=== PATIENT | female | born 1995 | race American Indian/Alaskan Native ===

== ENCOUNTER 2017-02-09 19:18 | Emergency (ER) | payer SELFPAY ==
--- NOTE | 2017-02-09 20:15 | EDM.PDOC ---
ED HPI GENERAL MEDICAL PROBLEM - General Chief Complaint: Abdominal Pain Stated Complaint: PAIN IN LOWER BACK/STOMACH Time Seen by Provider: 02/09/17 20:10 Source of Information: Reports: Patient History Limitations: Reports: No Limitations - History of Present Illness INITIAL COMMENTS - FREE TEXT/NARRATIVE: c/o bilateral flank and supropubic pain for past 3 days similar to kidney infection in past. No fever or chills. Lamp last week. Denies risk of STD. No urinary frequency or burning Treatments TRANSPORT MEDIC: Reports: Acetaminophen Bilateral Flank Pain Score (Numeric/FACES): 7 - Related Data Allergies Allergy/AdvReac Type Severity Reaction Status Date / Time No Known Allergies Allergy Verified 02/09/17 19:39 Home Meds: Home Meds . [No Known Home Meds] 04/11/16 [History] Past Medical History - Past Health History Medical/Surgical History: Denies Medical/Surgical History Musculoskeletal History: Reports: Fracture - Past Surgical History Other Musculoskeletal Surgeries/Procedures:: broke left arm 10 years ago Social & Family History - Tobacco Use Smoking Status *Q: Never Smoker Used Tobacco, but Quit: No Second Hand Smoke Exposure: Yes - Caffeine Use Caffeine Use: Reports: Soda - Alcohol Use Days Per Week of Alcohol Use: 0 - Recreational Drug Use Recreational Drug Use: No ED ROS GENERAL - Review of Systems Review Of Systems: ROS reveals no pertinent complaints other than HPI. ED EXAM, RENAL/ - Physical Exam Exam: See Below Exam Limited By: No Limitations General Appearance: Alert, No Apparent Distress Ears: Normal External Exam Nose: Normal Inspection Throat/Mouth: Normal Inspection Head: Atraumatic, Normocephalic Neck: Normal Inspection Respiratory/Chest: No Respiratory Distress, Lungs Clear Cardiovascular: Normal Peripheral Pulses, Regular Rate, Rhythm GI/Abdominal: Normal Bowel Sounds, Soft. No: Guarding, Rebound (Female) Exam: Other (suproapubic tenderness) Extremities: Normal Inspection Neurological: Alert, Oriented Psychiatric: Normal Affect Skin Exam: Warm, Dry, Intact, Tattoo(s) Course - Vital Signs Last Recorded V/S: Last Vital Signs Temp 97.7 F 02/09/17 20:43 Pulse 85 02/09/17 20:43 Resp 16 02/09/17 20:43 BP 122/70 02/09/17 20:43 Pulse Ox 100 02/09/17 20:43 - Orders/Labs/Meds Orders: Active Orders 24 hr Category Date Time Status CULTURE URINE [RM] Stat Lab 02/09/17 19:23 Received Labs: Laboratory Tests 02/09/17 02/09/17 02/09/17 Range/Units 19:23 19:23 19:23 Urine Color Yellow (YELLOW) Urine Appearance Turbid (CLEAR) Urine pH 5.5 (5.0-9.0) Ur Specific [place] 1.025 (1.005-1.030) Urine Protein Negative (NEGATIVE) Urine Glucose (UA) Negative (NEGATIVE) Urine Ketones Trace H (NEGATIVE) Urine Occult Blood Negative (NEGATIVE) Urine Nitrite Negative (NEGATIVE) Urine Bilirubin Negative (NEGATIVE) Urine Urobilinogen 0.2 (0.2-1.0) mg/dL Ur Leukocyte Esterase Trace H (NEGATIVE) Urine RBC 0-5 /HPF Urine WBC 0-5 (0-5/HPF) /HPF Ur Epithelial Cells Many H /HPF Urine Bacteria Many H (0-FEW/HPF) /HPF Urinalysis Comment Urine HCG, Qual Positive Urine Opiates Screen Negative (NEGATIVE) Ur Oxycodone Screen Negative (NEGATIVE) Urine Methadone Screen Negative (NEGATIVE) Ur Barbiturates Screen Negative (NEGATIVE) U Tricyclic Antidepress Negative (NEGATIVE) Ur Phencyclidine Scrn Negative (NEGATIVE) Ur Amphetamine Screen Negative (NEGATIVE) U Methamphetamines Scrn Negative (NEGATIVE) Urine MDMA Screen Negative (NEGATIVE) U Benzodiazepines Scrn Negative (NEGATIVE) Urine Cocaine Screen Negative (NEGATIVE) U Marijuana (THC) Screen Positive H (NEGATIVE) Meds: Medications Discontinued Medications Generic Name Dose Route Start Last Admin Trade Name Freq PRN Reason Stop Dose Admin Cephalexin 500 mg 02/09/17 20:30 02/09/17 20:38 Keflex PO 02/09/17 20:31 500 mg ONETIME ONE Administration Departure - Departure Time of Disposition: 20:30 Disposition: Home, Self-Care 01 Condition: Good Clinical Impression: Qualifiers: Weeks of gestation: unspecified Qualified Code(s): Z34.90 - Encounter for supervision of normal , unspecified, unspecified trimester UTI (urinary tract infection) Qualifiers: Urinary tract infection type: site unspecified Hematuria presence: without hematuria Qualified Code(s): N39.0 - Urinary tract infection, site not specified - Discharge Information Instructions: Urinary Tract Infection, Adult Forms: ED Department Discharge Additional Instructions: keflex 500mg one twice daily for one week follow up in clinic with PCP to establish prenatle care Recheck urine in one week Sooner if fever, chills or worsening of back pain - My Orders Last 24 Hours: My Active Orders 02/09/17 19:23 CULTURE URINE [] Stat - Assessment/Plan Last 24 Hours: My Active Orders 02/09/17 19:23 CULTURE URINE [RM] Stat
[2017-02-09] MEDS ORDERED: Cephalexin 500 MG Cap PO ONE (20:30)
[2017-02-09 20:47] VITALS: BP 122/70
== END 2017-02-09 20:43 | disposition home or self-care (01) ==
LOC: DL.ED 19:18
DX: O23.41 Unspecified infection of urinary tract in pregnancy, first trimester (principal); N39.0 Urinary tract infection, site not specified
CPT/HCPCS: 80305; 81001; 81025; 87086; 99284; A9270

== ENCOUNTER 2017-06-17 10:37 | Emergency (ER) | payer SELFPAY ==
[2017-06-17 10:56] VITALS: BP 126/72
--- NOTE | 2017-06-17 11:10 | EDM.PDOC ---
ED HPI GENERAL MEDICAL PROBLEM - General Chief Complaint: Skin Complaint Stated Complaint: TROUBLE BREATHING, BREAKING OUT Time Seen by Provider: 06/17/17 11:10 Source of Information: Reports: Patient, RN, RN Notes Reviewed History Limitations: Reports: No Limitations - History of Present Illness INITIAL COMMENTS - FREE TEXT/NARRATIVE: Pt presents to the ER with c/o rash on her face and neck. She states she woke up at 0900 with a red rash and burning feeling in her face. She states she has not used any new lotions, make up, products, laundry detergent or foods. She denies use of any medications, prescribed or OTC that may be new. She states when she first awoke she felt that her tongue was somewhat swollen, but after drinking some water she does not feel she has any swelling. She denies having a hard time breathing at this time. Onset: Today, Sudden Location: Reports: Head, Face Face Pain Score (Numeric/FACES): 7 - Related Data Allergies Allergy/AdvReac Type Severity Reaction Status Date / Time No Known Allergies Allergy Verified 02/09/17 19:39 Home Meds: Home Meds . [No Known Home Meds] 04/11/16 [History] Past Medical History - Past Health History Medical/Surgical History: Denies Medical/Surgical History Musculoskeletal History: Reports: Fracture - Past Surgical History Other Musculoskeletal Surgeries/Procedures:: broke left arm 10 years ago Social & Family History - Tobacco Use Smoking Status *Q: Never Smoker Used Tobacco, but Quit: No Second Hand Smoke Exposure: Yes - Caffeine Use Caffeine Use: Reports: Coffee, Soda - Alcohol Use Days Per Week of Alcohol Use: 1 Number of Drinks Per Day: 4 Total Drinks Per Week: 4 - Recreational Drug Use Recreational Drug Use: No ED ROS GENERAL - Review of Systems Review Of Systems: ROS reveals no pertinent complaints other than HPI. ED EXAM, SKIN/RASH Exam: See Below Exam Limited By: No Limitations General Appearance: Alert, WD/WN, No Apparent Distress Eye Exam: Bilateral Eye: EOMI, Normal Inspection Ears: Normal External Exam, Hearing Grossly Normal Nose: Normal Inspection Throat/Mouth: Normal Inspection, Normal Voice, No Airway Compromise Head: Atraumatic, Normocephalic, Facial Tenderness (red raised rash, facial burning and tender to touch, itchy) Neck: Normal Inspection, Supple, Non-Tender, Full Range of Motion Respiratory/Chest: No Respiratory Distress, Lungs Clear, Normal Breath Sounds, No Accessory Muscle Use, Chest Non-Tender Cardiovascular: Normal Peripheral Pulses, Regular Rate, Rhythm, No Edema, No Gallop, No JVD, No Murmur, No Rub Peripheral Pulses: 2+: Radial (L), Radial (R) GI/Abdominal: Normal Bowel Sounds, Soft, Non-Tender, No Organomegaly, No Distention, No Abnormal Bruit, No Mass (Female) Exam: Deferred Rectal (Female) Exam: Deferred Back Exam: Normal Inspection, Full Range of Motion Extremities: Normal Inspection, Normal Range of Motion, Non-Tender, No Pedal Edema, Normal Capillary Refill Neurological: Alert, Oriented, CN II-XII Intact, Normal Cognition, Normal Gait, Normal Reflexes, No Motor/Sensory Deficits Psychiatric: Normal Affect, Normal Mood Skin: Warm, Dry, Rash (red patchy raised on face and neck) Location, Skin: Face, Neck Characteristics: Macular Associated features: Warmth Lymphatic: No Adenopathy Course - Vital Signs Last Recorded V/S: Last Vital Signs Temp 97.8 F 06/17/17 10:55 Pulse 88 06/17/17 10:55 Resp 16 06/17/17 10:55 BP 126/72 06/17/17 10:55 Pulse Ox 100 06/17/17 10:55 - Orders/Labs/Meds Meds: Medications Discontinued Medications Generic Name Dose Route Start Last Admin Trade Name Freq PRN Reason Stop Dose Admin Diphenhydramine HCl 25 mg 06/17/17 11:17 06/17/17 11:32 Benadryl PO 06/17/17 11:18 25 mg ONETIME ONE Administration Famotidine 20 mg 06/17/17 11:18 06/17/17 11:33 Pepcid PO 06/17/17 11:19 20 mg ONETIME ONE Administration Methylprednisolone Sodium Succinate 125 mg 06/17/17 11:17 06/17/17 11:33 Solu-Medrol IM 06/17/17 11:18 125 mg ONETIME ONE Administration Departure - Departure Time of Disposition: 11:40 Disposition: Home, Self-Care 01 Condition: Fair Clinical Impression: Atopic dermatitis Qualifiers: Atopic dermatitis type: unspecified Qualified Code(s): L20.9 - Atopic dermatitis, unspecified - Discharge Information Instructions: Rash, Contact Dermatitis, [id number] Forms: ED Department Discharge Additional Instructions: RX: Medrol Dose pack Over the counter Benadryl as directed on package. Over the counter Calamine lotion or Benadryl cooling gel for itch Follow up with your primary care facility next week.
[2017-06-17] MEDS ORDERED: diphenhydrAMINE 25 MG Tab PO ONE (11:17)
[2017-06-17] MEDS ORDERED: methylPREDNISolone Sodium Succinate 125 MG/2 ML SDV IM ONE (11:17)
[2017-06-17] MEDS ORDERED: Famotidine 20 MG Tab PO ONE (11:18)
== END 2017-06-17 11:40 | disposition home or self-care (01) ==
LOC: DL.ED 10:37
DX: L20.9 Atopic dermatitis, unspecified (principal); Z77.22 Contact with and (suspected) exposure to environmental tobacco smoke (acute) (chronic)
CPT/HCPCS: 96372; 99282; A9270; J2930; 99283

== ENCOUNTER 2017-07-11 01:07 | Emergency (ER) | payer OTHER ==
[2017-07-11 01:14] VITALS: BP 138/84
--- NOTE | 2017-07-11 01:28 | EDM.PDOCBH ---
ED HPI GENERAL MEDICAL PROBLEM - General Chief Complaint: Behavioral/Psych Stated Complaint: WONT SAY WHAT FOR? [id number] Time Seen by Provider: 07/11/17 01:23 Source of Information: Reports: Patient History Limitations: Reports: No Limitations - History of Present Illness INITIAL COMMENTS - FREE TEXT/NARRATIVE: brought in by mother for self inflicted wounds to left forearm. pt undecided as to wanting help with her problems but finally did concede but refused labs. - Related Data Allergies Allergy/AdvReac Type Severity Reaction Status Date / Time No Known Allergies Allergy Verified 07/11/17 01:14 Home Meds: Home Meds . [No Known Home Meds] 04/11/16 [History] Past Medical History - Past Health History Medical/Surgical History: Denies Medical/Surgical History Musculoskeletal History: Reports: Fracture Psychiatric History: Reports: Other (See Below) Other Psychiatric History: self cutting - Past Surgical History Other Musculoskeletal Surgeries/Procedures:: broke left arm 10 years ago Social & Family History - Tobacco Use Smoking Status *Q: Never Smoker Used Tobacco, but Quit: No Second Hand Smoke Exposure: No - Caffeine Use Caffeine Use: Reports: Coffee, Soda - Alcohol Use Days Per Week of Alcohol Use: 1 Number of Drinks Per Day: 4 Total Drinks Per Week: 4 - Recreational Drug Use Recreational Drug Use: No ED ROS GENERAL - Review of Systems Review Of Systems: ROS reveals no pertinent complaints other than HPI. ED EXAM, BEHAVIORAL HEALTH - Physical Exam Exam: See Below Exam Limited By: No Limitations General Appearance: Alert, WD/WN, Other (emotionally distraught but in no acute physical distress) Eye Exam: Bilateral Eye: PERRL (pupils ess ER @ 4mm) Ears: Hearing Grossly Normal Throat/Mouth: Normal Voice, No Airway Compromise Head: Atraumatic Neck: Non-Tender, Full Range of Motion Respiratory/Chest: No Respiratory Distress Cardiovascular: Regular Rate, Rhythm GI/Abdominal: Soft, Non-Tender Extremities: Other (left fore arm with multiple spfl lac totalling 12", NV wnl, no active bleeding) Neurological: Alert, Normal Cognition, No Motor/Sensory Deficits, Oriented x 3 Psychiatric: Alert, Depressed Mood Skin Exam: Warm, Dry, Normal color COURSE, BEHAVIORAL HEALTH COMP - Course Vital Signs: Last Vital Signs Temp 36.9 C 07/11/17 01:09 Pulse 83 07/11/17 01:09 Resp 17 07/11/17 01:09 BP 138/84 07/11/17 01:09 Pulse Ox 99 07/11/17 01:09 Orders, Labs, Meds: Laboratory Tests 07/11/17 07/11/17 07/11/17 Range/Units 01:45 01:45 01:45 WBC (5.0-10.0) 10^3/uL RBC (4.2-5.4) 10^6/uL Hgb (12.0-16.0) g/dL Hct (37.0-47.0) % MCV (80-100) fL MCH (27.0-34.0) pg MCHC (33.0-35.0) g/dL Plt Count (150-450) 10^3/uL Neut % (Auto) (42.2-75.2) % Lymph % (Auto) (20.5-50.1) % [place] % (Auto) (2-8) % Eos % (Auto) (1.0-3.0) % Baso % (Auto) (0.0-1.0) % Sodium (135-145) mmol/L Potassium (3.6-5.0) mmol/L Chloride (101-111) mmol/L Carbon Dioxide (21.0-31.0) mmol/L Anion Gap BUN (7-18) mg/dL Creatinine (0.6-1.3) mg/dL Est Cr Clr Drug Dosing mL/min Estimated GFR (MDRD) BUN/Creatinine Ratio Glucose (74-105) mg/dL Calcium (8.4-10.2) mg/dl Total Bilirubin (0.2-1.0) mg/dL AST (10-42) IU/L ALT (10-60) IU/L Alkaline Phosphatase (42-121) IU/L Total Protein (6.7-8.2) g/dl Albumin (3.2-5.5) g/dl Globulin Albumin/Globulin Ratio Urine Color Yellow (YELLOW) Urine Appearance Slightly cloudy (CLEAR) Urine pH 6.5 (5.0-9.0) Ur Specific [place] 1.025 (1.005-1.030) Urine Protein Negative (NEGATIVE) Urine Glucose (UA) Negative (NEGATIVE) Urine Ketones Trace H (NEGATIVE) Urine Occult Blood Negative (NEGATIVE) Urine Nitrite Negative (NEGATIVE) Urine Bilirubin Negative (NEGATIVE) Urine Urobilinogen 0.2 (0.2-1.0) mg/dL Ur Leukocyte Esterase Trace H (NEGATIVE) Urine HCG, Qual Negative Salicylates Urine Opiates Screen Negative (NEGATIVE) Ur Oxycodone Screen Negative (NEGATIVE) Urine Methadone Screen Negative (NEGATIVE) Acetaminophen Ur Barbiturates Screen Negative (NEGATIVE) U Tricyclic Antidepress Negative (NEGATIVE) Ur Phencyclidine Scrn Negative (NEGATIVE) Ur Amphetamine Screen Negative (NEGATIVE) U Methamphetamines Scrn Negative (NEGATIVE) Urine MDMA Screen Negative (NEGATIVE) U Benzodiazepines Scrn Negative (NEGATIVE) Urine Cocaine Screen Negative (NEGATIVE) U Marijuana (THC) Screen Negative (NEGATIVE) Ethyl Alcohol mg/dL 18 07/11/17 Range/Units 01:50 01:50 WBC 10.8 H (5.0-10.0) 10^3/uL RBC 4.12 L (4.2-5.4) 10^6/uL Hgb 12.7 D (12.0-16.0) g/dL Hct 37.4 (37.0-47.0) % MCV 90.8 D (80-100) fL MCH 30.8 (27.0-34.0) pg MCHC 34.0 (33.0-35.0) g/dL Plt Count 278 D (150-450) 10^3/uL Neut % (Auto) 62.6 (42.2-75.2) % Lymph % (Auto) 29.2 (20.5-50.1) % [place] % (Auto) 6.8 (2-8) % Eos % (Auto) 1.1 (1.0-3.0) % Baso % (Auto) 0.3 (0.0-1.0) % Sodium 140 (135-145) mmol/L Potassium 3.4 L (3.6-5.0) mmol/L Chloride 105 (101-111) mmol/L Carbon Dioxide 25.0 (21.0-31.0) mmol/L Anion Gap 13.4 BUN 13 (7-18) mg/dL Creatinine 0.8 (0.6-1.3) mg/dL Est Cr Clr Drug Dosing 94.44 mL/min Estimated GFR (MDRD) > 60 BUN/Creatinine Ratio 16.25 Glucose 105 (74-105) mg/dL Calcium 9.6 (8.4-10.2) mg/dl Total Bilirubin 0.8 (0.2-1.0) mg/dL AST 22 (10-42) IU/L ALT 18 (10-60) IU/L Alkaline Phosphatase 72 (42-121) IU/L Total Protein 8.0 (6.7-8.2) g/dl Albumin 4.7 (3.2-5.5) g/dl Globulin 3.3 Albumin/Globulin Ratio 1.42 Urine Color (YELLOW) Urine Appearance (CLEAR) Urine pH (5.0-9.0) Ur Specific [place] (1.005-1.030) Urine Protein (NEGATIVE) Urine Glucose (UA) (NEGATIVE) Urine Ketones (NEGATIVE) Urine Occult Blood (NEGATIVE) Urine Nitrite (NEGATIVE) Urine Bilirubin (NEGATIVE) Urine Urobilinogen (0.2-1.0) mg/dL Ur Leukocyte Esterase (NEGATIVE) Urine HCG, Qual Salicylates < 4.0 Urine Opiates Screen (NEGATIVE) Ur Oxycodone Screen (NEGATIVE) Urine Methadone Screen (NEGATIVE) Acetaminophen < 10.0 Ur Barbiturates Screen (NEGATIVE) U Tricyclic Antidepress (NEGATIVE) Ur Phencyclidine Scrn (NEGATIVE) Ur Amphetamine Screen (NEGATIVE) U Methamphetamines Scrn (NEGATIVE) Urine MDMA Screen (NEGATIVE) U Benzodiazepines Scrn (NEGATIVE) Urine Cocaine Screen (NEGATIVE) U Marijuana (THC) Screen (NEGATIVE) Ethyl Alcohol < 5 mg/dL Re-Assessment/Re-Exam: pt & family conversed and finally pt decided to have labs done. Mental health [facility] called talked with pt who doesn't want to wait then talked to mother who states pt will be safe tonight and will bring pt to Human Services tomorrow for further evaluation. Departure - Departure Time of Disposition: 02:54 Disposition: Home, Self-Care 01 Condition: Good Clinical Impression: Self-harm - Discharge Information Forms: ED Department Discharge Additional Instructions: 1) see Human Services in the morning for further evaluation 2) recheck if there is any change or concern
[2017-07-11 02:18] LABS: ANION GAP 13.4; CHLORIDE,CL 105 mmol/L (101-111); SODIUM,NA 140 mmol/L (135-145)
[2017-07-11 02:29] LABS: ACETAMINOPHEN < 10.0
== END 2017-07-11 02:59 | disposition home or self-care (01) ==
LOC: DL.ED 01:07
DX: S51.812A Laceration without foreign body of left forearm, initial encounter (principal); X78.9XXA Intentional self-harm by unspecified sharp object, initial encounter
CPT/HCPCS: 36415; 80053; 80305; 81003; 81025; 85025; 99284; G0480

== ENCOUNTER 2018-06-27 07:59 | Emergency (ER) | payer MEDICAID, OTHER ==
[2018-06-27] MEDS ORDERED: Ondansetron 4 MG/2 ML SDV IV ONE ×2 (08:13→09:12)
[2018-06-27] MEDS ORDERED: Sodium Chloride 0.9% 1,000 ML IV ONE ×2 (08:13→09:12)
[2018-06-27] MEDS ORDERED: Sodium Chloride 0.9% 10 ML Syringe FLUSH PRN (08:13)
--- NOTE | 2018-06-27 08:13 | EDM.PDOC ---
ED HPI GENERAL MEDICAL PROBLEM - General Chief Complaint: Gastrointestinal Problem Stated Complaint: THROWING UP Time Seen by Provider: 06/27/18 08:12 Source of Information: Reports: Patient, Old Records, RN, RN Notes Reviewed History Limitations: Reports: No Limitations - History of Present Illness INITIAL COMMENTS - FREE TEXT/NARRATIVE: Pt presents from home by POV with c/o RLQ abdominal pain with severe nausea and vomiting. Pt states the symptoms began yesterday, but the pain is much more severe this morning. She admits to fever, for which she took Tylenol this morning. Also admits to some diarrhea since yesterday as well. Last ate at 0200HRS, but vomited most of it up. 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), Musculoskeletal History: Reports: Fracture Psychiatric History: Reports: Other (See Below) Other Psychiatric History: self cutting - Past Surgical History Female Surgical History: Reports: Other (See Below) (right salpingoectomy for ectopic, 05/2018) Other Musculoskeletal Surgeries/Procedures:: broke left arm 10 years ago Social & Family History - Family History Family Medical History: Noncontributory - Caffeine Use Caffeine Use: Reports: Coffee, Soda - Living Situation & Occupation Living situation: Reports: with Family ED ROS GENERAL - Review of Systems Review Of Systems: ROS reveals no pertinent complaints other than HPI. ED EXAM, GI/ABD - Physical Exam Exam: See Below Exam Limited By: No Limitations General Appearance: Alert, WD/WN, Mild Distress, Active Emesis Eyes: Bilateral: Normal Appearance, EOMI Nose: Normal Inspection Throat/Mouth: Normal Inspection, Normal Lips, Normal Teeth, Normal Gums, Normal Oropharynx, Normal Voice, No Airway Compromise Head: Atraumatic, Normocephalic Neck: Normal Inspection, Supple, Non-Tender, Full Range of Motion Respiratory/Chest: No Respiratory Distress, Lungs Clear, Normal Breath Sounds, No Accessory Muscle Use, Chest Non-Tender Cardiovascular: Regular Rate, Rhythm, Tachycardia GI/Abdominal Exam: Normal Bowel Sounds, Soft, No Distention, No Abnormal Bruit, No Mass, Pelvis Stable, Guarding (at RLQ), Rebound (RLQ), Tender (RLQ). No: Rigid (Female) Exam: Deferred Rectal (Female) Exam: Deferred Back Exam: Full Range of Motion, CVA Tenderness (R). No: CVA Tenderness (L) Extremities: Normal Inspection Neurological: Alert, Oriented, CN II-XII Intact, Normal Cognition, No Motor/ Sensory Deficits Psychiatric: Normal Affect, Normal Mood Skin Exam: Warm, Dry, Intact, Normal Color, No Rash Course - Vital Signs Last Recorded V/S: Last Vital Signs Temp 37.3 C 06/27/18 08:35 Pulse 139 H 06/27/18 08:35 Resp 24 H 06/27/18 08:35 BP 120/76 06/27/18 08:35 Pulse Ox 99 06/27/18 08:35 - Orders/Labs/Meds Orders: Active Orders 24 hr Category Date Time Status Peripheral IV Care [RC] . DIRECTED Care 06/27/18 08:13 Active Abdomen Pelvis wo Cont [CT] Stat Exams 06/27/18 08:45 Taken CULTURE BLOOD [BC] Stat Lab 06/27/18 08:21 Received Sodium Chloride 0.9% [Normal Saline] 1,000 ml Med 06/27/18 09:12 Active IV .BOLUS Sodium Chloride 0.9% [Saline Flush] Med 06/27/18 08:13 Active 10 ml FLUSH ASDIRECTED PRN Peripheral IV Insertion Adult [OM.PC] Stat Oth 06/27/18 08:13 Ordered Medication Orders Sodium Chloride (Normal Saline) 1,000 mls @ 999 mls/hr IV .BOLUS ONE Stop: 06/27/18 10:12 Last Admin: 06/27/18 09:23 Dose: 999 mls/hr Sodium Chloride (Saline Flush) 10 ml FLUSH ASDIRECTED PRN PRN Reason: Keep Vein Open Last Admin: 06/27/18 08:27 Dose: 10 ml Labs: Laboratory Tests 06/27/18 06/27/18 06/27/18 Range/Units 08:15 08:15 08:21 WBC 7.1 (5.0-10.0) 10^3/uL RBC 4.12 L (4.2-5.4) 10^6/uL Hgb 11.8 L D (12.0-16.0) g/dL Hct 33.5 L (37.0-47.0) % MCV 81.3 (80-100) fL MCH 28.6 (27.0-34.0) pg MCHC 35.2 H (33.0-35.0) g/dL Plt Count 164 D (150-450) 10^3/uL Neut % (Auto) 69.3 (42.2-75.2) % Lymph % (Auto) 20.3 L (20.5-50.1) % Blaine % (Auto) 7.4 (2-8) % Eos % (Auto) 3.0 (1.0-3.0) % Baso % (Auto) 0.0 (0.0-1.0) % Sodium (135-145) mmol/L Potassium (3.6-5.0) mmol/L Chloride (101-111) mmol/L Carbon Dioxide (21.0-31.0) mmol/L Anion Gap BUN (7-18) mg/dL Creatinine (0.6-1.3) mg/dL Est Cr Clr Drug Dosing mL/min Estimated GFR (MDRD) BUN/Creatinine Ratio Glucose (74-105) mg/dL Lactic Acid (0.5-2.2) mmol/L Calcium (8.4-10.2) mg/dl Total Bilirubin (0.2-1.0) mg/dL AST (10-42) IU/L ALT (10-60) IU/L Alkaline Phosphatase (42-121) IU/L Total Protein (6.7-8.2) g/dl Albumin (3.2-5.5) g/dl Globulin Albumin/Globulin Ratio Amylase (28-100) U/L Lipase (22-51) U/L Urine Color Yellow (YELLOW) Urine Appearance Slightly cloudy (CLEAR) Urine pH 5.5 (5.0-9.0) Ur Specific Chamberlain >= 1.030 (1.005-1.030) Urine Protein Negative (NEGATIVE) Urine Glucose (UA) Negative (NEGATIVE) Urine Ketones Negative (NEGATIVE) Urine Occult Blood Negative (NEGATIVE) Urine Nitrite Negative (NEGATIVE) Urine Bilirubin Negative (NEGATIVE) Urine Urobilinogen 0.2 (0.2-1.0) mg/dL Ur Leukocyte Esterase Trace H (NEGATIVE) Urine RBC 0-5 /HPF Urine WBC 5-10 H (0-5/HPF) /HPF Ur Epithelial Cells Moderate H /HPF Calcium Oxalate Crystal Many H /HPF Urine Bacteria Few (0-FEW/HPF) /HPF Urine Mucus Rare /LPF Urine HCG, Qual Negative 06/27/18 06/27/18 Range/Units 08:21 08:21 WBC (5.0-10.0) 10^3/uL RBC (4.2-5.4) 10^6/uL Hgb (12.0-16.0) g/dL Hct (37.0-47.0) % MCV (80-100) fL MCH (27.0-34.0) pg MCHC (33.0-35.0) g/dL Plt Count (150-450) 10^3/uL Neut % (Auto) (42.2-75.2) % Lymph % (Auto) (20.5-50.1) % Blaine % (Auto) (2-8) % Eos % (Auto) (1.0-3.0) % Baso % (Auto) (0.0-1.0) % Sodium 134 L (135-145) mmol/L Potassium 3.3 L (3.6-5.0) mmol/L Chloride 103 (101-111) mmol/L Carbon Dioxide 20.0 L (21.0-31.0) mmol/L Anion Gap 14.3 BUN 11 (7-18) mg/dL Creatinine 0.5 L (0.6-1.3) mg/dL Est Cr Clr Drug Dosing 149.82 mL/min Estimated GFR (MDRD) > 60 BUN/Creatinine Ratio 22.00 Glucose 118 H (74-105) mg/dL Lactic Acid 1.1 (0.5-2.2) mmol/L Calcium 9.2 (8.4-10.2) mg/dl Total Bilirubin 0.8 (0.2-1.0) mg/dL AST 32 (10-42) IU/L ALT 25 (10-60) IU/L Alkaline Phosphatase 188 H (42-121) IU/L Total Protein 7.1 (6.7-8.2) g/dl Albumin 3.8 (3.2-5.5) g/dl Globulin 3.3 Albumin/Globulin Ratio 1.15 Amylase 52 (28-100) U/L Lipase 23 (22-51) U/L Urine Color (YELLOW) Urine Appearance (CLEAR) Urine pH (5.0-9.0) Ur Specific Chamberlain (1.005-1.030) Urine Protein (NEGATIVE) Urine Glucose (UA) (NEGATIVE) Urine Ketones (NEGATIVE) Urine Occult Blood (NEGATIVE) Urine Nitrite (NEGATIVE) Urine Bilirubin (NEGATIVE) Urine Urobilinogen (0.2-1.0) mg/dL Ur Leukocyte Esterase (NEGATIVE) Urine RBC /HPF Urine WBC (0-5/HPF) /HPF Ur Epithelial Cells /HPF Calcium Oxalate Crystal /HPF Urine Bacteria (0-FEW/HPF) /HPF Urine Mucus /LPF Urine HCG, Qual Meds: Medications Generic Name Dose Route Start Last Admin Trade Name Frerandall PRN Reason Stop Dose Admin Sodium Chloride 1,000 mls @ 999 mls/hr 06/27/18 09:12 06/27/18 09:23 Normal Saline IV 06/27/18 10:12 999 mls/hr .BOLUS ONE Administration Sodium Chloride 10 ml 06/27/18 08:13 06/27/18 08:27 Saline Flush FLUSH 10 ml ASDIRECTED PRN Administration Keep Vein Open Discontinued Medications Generic Name Dose Route Start Last Admin Trade Name Frerandall PRN Reason Stop Dose Admin Hydromorphone HCl 1 mg 06/27/18 08:16 06/27/18 08:27 Dilaudid IVPUSH 06/27/18 08:17 1 mg ONETIME ONE Administration Sodium Chloride 1,000 mls @ 999 mls/hr 06/27/18 08:13 06/27/18 08:27 Normal Saline IV 06/27/18 09:13 999 mls/hr .BOLUS ONE Administration Iopamidol 75 ml 06/27/18 08:17 Isovue-300 (61%) IVPUSH 06/27/18 08:18 ONETIME ONE Ketorolac Tromethamine 30 mg 06/27/18 09:13 06/27/18 09:19 Toradol IVPUSH 06/27/18 09:14 30 mg ONETIME ONE Administration Ondansetron HCl 4 mg 06/27/18 08:13 06/27/18 08:27 Zofran IV 06/27/18 08:14 4 mg ONETIME ONE Administration Ondansetron HCl 4 mg 06/27/18 09:12 06/27/18 09:20 Zofran IV 06/27/18 09:13 4 mg ONETIME ONE Administration - Radiology Interpretation Free Text/Narrative:: CT Abdomen/Pelvis: normal appendix, Rt ovarian cyst, non-obstructive B/L renal micro-calcifications, no acute findings per Rad. report. Departure - Departure Time of Disposition: 10:00 Disposition: Home, Self-Care 01 Condition: Fair Clinical Impression: Gastroenteritis presumed infectious, Dehydration, Right ovarian cyst - Discharge Information *PRESCRIPTION DRUG MONITORING PROGRAM REVIEWED*: Not Applicable *COPY OF PRESCRIPTION DRUG MONITORING REPORT IN PATIENT GLENIS: Not Applicable Instructions: Viral Gastroenteritis, Adult, [id number], Dehydration, Adult, Ovarian Cyst Forms: ED Department Discharge Additional Instructions: Rx: Promethazine 25mg *Do not drive while under the influence of this medication. Rx: Dicyclomine 20mg Clear liquid diet until nausea and vomiting resolve, then advance to soft bland diet as tolerated. Avoid dairy products, fried or greasy foods, and spicy foods until completely improved. Follow up in clinic in 3 days. Return to ER if pain becomes severe, you are unable to tolerated clear liquids without vomiting, or if any other emergent symptoms develop. - My Orders Last 24 Hours: My Active Orders 06/27/18 08:13 Peripheral IV Care [RC] . DIRECTED Sodium Chloride 0.9% [Saline Flush] 10 ml FLUSH ASDIRECTED PRN Peripheral IV Insertion Adult [OM.PC] Stat 06/27/18 08:21 CULTURE BLOOD [BC] Stat 06/27/18 08:45 Abdomen Pelvis wo Cont [CT] Stat 06/27/18 09:12 Sodium Chloride 0.9% [Normal Saline] 1,000 ml IV .BOLUS - Assessment/Plan Last 24 Hours: My Active Orders 06/27/18 08:13 Peripheral IV Care [RC] . DIRECTED Sodium Chloride 0.9% [Saline Flush] 10 ml FLUSH ASDIRECTED PRN Peripheral IV Insertion Adult [OM.PC] Stat 06/27/18 08:21 CULTURE BLOOD [BC] Stat 06/27/18 08:45 Abdomen Pelvis wo Cont [CT] Stat 06/27/18 09:12 Sodium Chloride 0.9% [Normal Saline] 1,000 ml IV .BOLUS
[2018-06-27] MEDS ORDERED: HYDROmorphone 1 MG/ML Syringe IVPUSH ONE (08:16)
[2018-06-27] MEDS ORDERED: Iopamidol 612 MG/ML 75 ML Bottle IVPUSH ONE (08:17)
[2018-06-27 08:46] VITALS: BP 120/76
[2018-06-27 08:53] LABS: ANION GAP 14.3; CHLORIDE,CL 103 mmol/L (101-111); SODIUM,NA 134 mmol/L (135-145)
[2018-06-27] MEDS ORDERED: Ketorolac 30 MG/ML SDV IVPUSH ONE (09:13)
--- NOTE | 2018-06-27 09:57 | CT ---
CLINICAL HISTORY: 23-year-old female with right flank and right lower quadrant pain who has a history of kidney stones (NOTE: Nonobstructing lower pole calcification left kidney" reported on CT scan January 2018). Surgery for ectopic on the right. No hematuria but urine is "loaded" with calcium oxalate crystals. SCAN TECHNIQUE: Volume acquisition of data from an emergency unenhanced CT scan of the abdomen and pelvis (kidneys/ureters/bladder) obtained while the patient was lying supine on the Siemens multislice scanner [place], [place]. All data archived in the PACS system for storage, reformatting axial/sagittal/coronal planes and study. INTERPRETATION: 1. Discrete lower pole calcification left kidney and increased calyceal density both kidneys (dehydration?) Without current sign of ureterolithiasis or obstructive uropathy, i.e., no pyelocaliectasis or ureterectasis. Near empty urinary bladder without calcification. 2. Large retroverted uterus and the tissue planes right adnexa obscured (surgery?). Prominent 2 cm diameter right ovarian cyst. 3. Normal appendix RLQ. 4. Gallbladder, unenhanced liver, stomach spleen and pancreas unremarkable. 5. No abdominal mass lesion, pelvic or retroperitoneal lymphadenopathy, signs of mechanical bowel obstruction, ascites or free intraperitoneal air. 6. Normal cardiac silhouette. Lung bases clear. Normal caliber abdominal aorta. Lumbar spine unremarkable. CONCLUSION: Nephrolithiasis. No signs of obstructive uropathy. Right ovarian cyst.
== END 2018-06-27 10:29 | disposition home or self-care (01) ==
LOC: DL.ED 07:59
DX: K52.9 Noninfective gastroenteritis and colitis, unspecified (principal); N83.201 Unspecified ovarian cyst, right side
CPT/HCPCS: 36415; 74176; 80053; 81001; 81025; 82150; 83605; 83690; 85025; 87040; 96361; 96374; 96375; 96376; 99284; J1170; J1885; J2405; J7030

== ENCOUNTER 2018-08-14 20:17 | Emergency (ER) | payer MEDICAID ==
[2018-08-14 20:24] VITALS: BP 145/70
[2018-08-14 21:19] LABS: ANION GAP 15.8; CHLORIDE,CL 104 mmol/L (101-111); SODIUM,NA 135 mmol/L (135-145)
--- NOTE | 2018-08-15 06:23 | EDM.PDOC ---
ED HPI GENERAL MEDICAL PROBLEM - General Chief Complaint: Abdominal Pain Stated Complaint: SHARP PAIN IN RIGHT SIDE OF ABD. Time Seen by Provider: 08/14/18 20:30 Source of Information: Reports: Patient History Limitations: Reports: No Limitations - History of Present Illness INITIAL COMMENTS - FREE TEXT/NARRATIVE: C/O ROQ abdominal pain radiating to bck past 4 days, No fever or chills. Rare emesis. Ectopic on right in May, Started Depo shot in June. Lmp completed on Tuesday, lasted 12 days. Heavier than usual Denies urinary symptoms. HEENT no complaints. Right Lower Abdominal Pain Score (Numeric/FACES): 5 - Related Data Allergies Allergy/AdvReac Type Severity Reaction Status Date / Time No Known Allergies Allergy Verified 08/14/18 20:24 Home Meds: Home Meds . 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 , Musculoskeletal History: Reports: Fracture Psychiatric History: Reports: Other (See Below) Other Psychiatric History: self cutting - Past Surgical History Female Surgical History: Reports: Other (See Below) Other Female Surgeries/Procedures: ectopic surgery Other Musculoskeletal Surgeries/Procedures:: broke left arm 10 years ago Social & Family History - Family History Family Medical History: Noncontributory - Tobacco Use Smoking Status *Q: Never Smoker Second Hand Smoke Exposure: No - Caffeine Use Caffeine Use: Reports: Coffee, Soda - Recreational Drug Use Recreational Drug Use: No - Living Situation & Occupation Living situation: Reports: with Family ED ROS GENERAL - Review of Systems Review Of Systems: ROS reveals no pertinent complaints other than HPI. ED EXAM, GI/ABD - Physical Exam Exam: See Below Exam Limited By: No Limitations General Appearance: Alert, Mild Distress Eyes: Bilateral: EOMI Ears: Normal External Exam Nose: Normal Inspection Throat/Mouth: Normal Inspection, Normal Oropharynx Head: Atraumatic, Normocephalic Neck: Normal Inspection Respiratory/Chest: No Respiratory Distress, Lungs Clear Cardiovascular: Normal Peripheral Pulses, Regular Rate, Rhythm, Tachycardia GI/Abdominal Exam: Normal Bowel Sounds Back Exam: CVA Tenderness (R) Extremities: Normal Range of Motion Neurological: Alert, Oriented Psychiatric: Normal Affect, Normal Mood Skin Exam: Warm, Dry, Intact, Normal Color Course - Vital Signs Last Recorded V/S: Last Vital Signs Temp 98.7 F 08/14/18 20:20 Pulse 128 H 08/14/18 20:20 Resp 18 08/14/18 20:20 BP 145/70 H 08/14/18 20:20 Pulse Ox 100 08/14/18 20:20 - Orders/Labs/Meds Labs: Laboratory Tests 08/14/18 08/14/18 08/14/18 Range/Units 20:43 20:46 20:46 WBC (5.0-10.0) 10^3/uL RBC (4.2-5.4) 10^6/uL Hgb (12.0-16.0) g/dL Hct (37.0-47.0) % MCV (80-100) fL MCH (27.0-34.0) pg MCHC (33.0-35.0) g/dL Plt Count (150-450) 10^3/uL Neut % (Auto) (42.2-75.2) % Lymph % (Auto) (20.5-50.1) % [place] % (Auto) (2-8) % Eos % (Auto) (1.0-3.0) % Baso % (Auto) (0.0-1.0) % Sodium (135-145) mmol/L Potassium (3.6-5.0) mmol/L Chloride (101-111) mmol/L Carbon Dioxide (21.0-31.0) mmol/L Anion Gap BUN (7-18) mg/dL Creatinine (0.6-1.3) mg/dL Est Cr Clr Drug Dosing mL/min Estimated GFR (MDRD) BUN/Creatinine Ratio Glucose (74-105) mg/dL Calcium (8.4-10.2) mg/dl Total Bilirubin (0.2-1.0) mg/dL AST (10-42) IU/L ALT (10-60) IU/L Alkaline Phosphatase (42-121) IU/L Total Protein (6.7-8.2) g/dl Albumin (3.2-5.5) g/dl Globulin Albumin/Globulin Ratio Urine Color Yellow (YELLOW) Urine Appearance Clear (CLEAR) Urine pH 5.5 (5.0-9.0) Ur Specific Balm 1.015 (1.005-1.030) Urine Protein Negative (NEGATIVE) Urine Glucose (UA) Negative (NEGATIVE) Urine Ketones Negative (NEGATIVE) Urine Occult Blood Negative (NEGATIVE) Urine Nitrite Negative (NEGATIVE) Urine Bilirubin Negative (NEGATIVE) Urine Urobilinogen 0.2 (0.2-1.0) mg/dL Ur Leukocyte Esterase Trace H (NEGATIVE) Urine RBC 0-5 /HPF Urine WBC 0-5 (0-5/HPF) /HPF Ur Epithelial Cells Rare /HPF Amorphous Sediment Rare (0/HPF) /HPF Urine Bacteria Occasional (0-FEW/HPF) /HPF Urine Mucus Rare /LPF Urine HCG, Qual Negative Urine Opiates Screen Negative (NEGATIVE) Ur Oxycodone Screen Negative (NEGATIVE) Urine Methadone Screen Negative (NEGATIVE) Ur Barbiturates Screen Negative (NEGATIVE) U Tricyclic Antidepress Negative (NEGATIVE) Ur Phencyclidine Scrn Negative (NEGATIVE) Ur Amphetamine Screen Negative (NEGATIVE) U Methamphetamines Scrn Negative (NEGATIVE) Urine MDMA Screen Negative (NEGATIVE) U Benzodiazepines Scrn Negative (NEGATIVE) Urine Cocaine Screen Negative (NEGATIVE) U Marijuana (THC) Screen Negative (NEGATIVE) 08/14/18 08/14/18 Range/Units 20:56 20:56 WBC 7.1 (5.0-10.0) 10^3/uL RBC 3.77 L (4.2-5.4) 10^6/uL Hgb 10.7 L (12.0-16.0) g/dL Hct 30.7 L (37.0-47.0) % MCV 81.4 (80-100) fL MCH 28.4 (27.0-34.0) pg MCHC 34.9 (33.0-35.0) g/dL Plt Count 215 (150-450) 10^3/uL Neut % (Auto) 52.6 (42.2-75.2) % Lymph % (Auto) 37.6 (20.5-50.1) % [place] % (Auto) 7.2 (2-8) % Eos % (Auto) 2.5 (1.0-3.0) % Baso % (Auto) 0.1 (0.0-1.0) % Sodium 135 (135-145) mmol/L Potassium 3.8 (3.6-5.0) mmol/L Chloride 104 (101-111) mmol/L Carbon Dioxide 19.0 L (21.0-31.0) mmol/L Anion Gap 15.8 BUN 12 (7-18) mg/dL Creatinine 0.5 L (0.6-1.3) mg/dL Est Cr Clr Drug Dosing 149.82 mL/min Estimated GFR (MDRD) > 60 BUN/Creatinine Ratio 24.00 Glucose 140 H (74-105) mg/dL Calcium 9.0 (8.4-10.2) mg/dl Total Bilirubin 0.7 (0.2-1.0) mg/dL AST 40 (10-42) IU/L ALT 45 (10-60) IU/L Alkaline Phosphatase 235 H (42-121) IU/L Total Protein 6.8 (6.7-8.2) g/dl Albumin 3.4 (3.2-5.5) g/dl Globulin 3.4 Albumin/Globulin Ratio 1.00 Urine Color (YELLOW) Urine Appearance (CLEAR) Urine pH (5.0-9.0) Ur Specific Balm (1.005-1.030) Urine Protein (NEGATIVE) Urine Glucose (UA) (NEGATIVE) Urine Ketones (NEGATIVE) Urine Occult Blood (NEGATIVE) Urine Nitrite (NEGATIVE) Urine Bilirubin (NEGATIVE) Urine Urobilinogen (0.2-1.0) mg/dL Ur Leukocyte Esterase (NEGATIVE) Urine RBC /HPF Urine WBC (0-5/HPF) /HPF Ur Epithelial Cells /HPF Amorphous Sediment (0/HPF) /HPF Urine Bacteria (0-FEW/HPF) /HPF Urine Mucus /LPF Urine HCG, Qual Urine Opiates Screen (NEGATIVE) Ur Oxycodone Screen (NEGATIVE) Urine Methadone Screen (NEGATIVE) Ur Barbiturates Screen (NEGATIVE) U Tricyclic Antidepress (NEGATIVE) Ur Phencyclidine Scrn (NEGATIVE) Ur Amphetamine Screen (NEGATIVE) U Methamphetamines Scrn (NEGATIVE) Urine MDMA Screen (NEGATIVE) U Benzodiazepines Scrn (NEGATIVE) Urine Cocaine Screen (NEGATIVE) U Marijuana (THC) Screen (NEGATIVE) Departure - Departure Time of Disposition: 23:00 Disposition: Against Medical Advice 07 Condition: Undetermined Clinical Impression: Abdominal pain Qualifiers: Abdominal location: right lower quadrant Qualified Code(s): R10.31 - Right lower quadrant pain - Discharge Information Forms: ED Department Discharge
== END 2018-08-14 22:57 | disposition left against medical advice (07) ==
LOC: DL.ED 20:17
DX: R10.31 Right lower quadrant pain (principal)
CPT/HCPCS: 36415; 76857; 80053; 80305-QW; 81001; 81025; 85025; 99284

== ENCOUNTER 2018-08-27 13:59 | Emergency (ER) | payer MEDICAID, OTHER ==
[2018-08-27 14:05] VITALS: BP 132/49
[2018-08-27] MEDS ORDERED: Ketorolac 30 MG/ML SDV IM ONE (14:13)
--- NOTE | 2018-08-27 14:18 | EDM.PDOC ---
ED HPI GENERAL MEDICAL PROBLEM - General Chief Complaint: Back Pain or Injury Stated Complaint: UNKNOWN AMBULANCE Time Seen by Provider: 08/27/18 14:14 Source of Information: Reports: Patient History Limitations: Reports: No Limitations - History of Present Illness INITIAL COMMENTS - FREE TEXT/NARRATIVE: woke up hour ago with pain left back/shoulder area and then moved to right side and now both sides hurt. denies injury/straining. gets depo shots for control. denies URI Sx. hurts more to deep breath. Left Upper Back Pain Score (Numeric/FACES): 10 - Related Data Allergies Allergy/AdvReac Type Severity Reaction Status Date / Time No Known Allergies Allergy Verified 08/27/18 14:05 Home Meds: Home Meds . 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 , Musculoskeletal History: Reports: Fracture Psychiatric History: Reports: Other (See Below) Other Psychiatric History: self cutting - Past Surgical History Female Surgical History: Reports: Other (See Below) Other Female Surgeries/Procedures: ectopic surgery Other Musculoskeletal Surgeries/Procedures:: broke left arm 10 years ago Social & Family History - Family History Family Medical History: Noncontributory - Tobacco Use Smoking Status *Q: Never Smoker Second Hand Smoke Exposure: No - Caffeine Use Caffeine Use: Reports: Coffee, Soda - Recreational Drug Use Recreational Drug Use: No - Living Situation & Occupation Living situation: Reports: with Family ED ROS GENERAL - Review of Systems Review Of Systems: ROS reveals no pertinent complaints other than HPI. ED EXAM, UPPER BACK/NECK PAIN - Physical Exam Exam: See Below Exam Limited By: No Limitations General Appearance: Alert, WD/WN, Anxious, Mild Distress, Other (crying, hypervent) Ears Exam: Hearing Grossly Normal Throat/Mouth Exam: Normal Voice, No Airway Compromise Head Exam: Atraumatic Neck Exam: Non-Tender, Full Range of Motion Nexus Criteria: No: Posterior, Midline Cervical Tenderness, Evidence of Intoxication, Altered Level of Consciousness, Focal Neurological Deficit, Painful Distraction Injuries Cardiovascular/Respiratory: Regular Rate, Rhythm, Normal Breath Sounds, No Respiratory Distress GI/Abdominal: Soft, Non-Tender Neurologic: Alert, Oriented x 3 Psychiatric: Anxious, Tearful Skin Exam: Normal Color, Warm/Dry Lymphatic: No Adenopathy Course - Vital Signs Last Recorded V/S: Last Vital Signs Temp 35.9 C 08/27/18 14:01 Pulse 126 H 08/27/18 14:01 Resp 20 08/27/18 14:01 BP 132/49 L 08/27/18 14:01 Pulse Ox 100 08/27/18 14:01 - Orders/Labs/Meds Labs: Laboratory Tests 08/27/18 08/27/18 08/27/18 Range/Units 14:19 14:19 14:19 WBC 7.6 (5.0-10.0) 10^3/uL RBC 4.03 L (4.2-5.4) 10^6/uL Hgb 11.5 L (12.0-16.0) g/dL Hct 32.5 L (37.0-47.0) % MCV 80.6 (80-100) fL MCH 28.5 (27.0-34.0) pg MCHC 35.4 H (33.0-35.0) g/dL Plt Count 238 (150-450) 10^3/uL Neut % (Auto) 50.2 (42.2-75.2) % Lymph % (Auto) 39.6 (20.5-50.1) % [place] % (Auto) 7.1 (2-8) % Eos % (Auto) 3.0 (1.0-3.0) % Baso % (Auto) 0.1 (0.0-1.0) % D-Dimer, Quantitative < 100 (0-400) ng/mL Sodium 137 (135-145) mmol/L Potassium 3.1 L (3.6-5.0) mmol/L Chloride 108 (101-111) mmol/L Carbon Dioxide 18.0 L (21.0-31.0) mmol/L Anion Gap 14.1 BUN 12 (7-18) mg/dL Creatinine 0.5 L (0.6-1.3) mg/dL Est Cr Clr Drug Dosing 149.82 mL/min Estimated GFR (MDRD) > 60 BUN/Creatinine Ratio 24.00 Glucose 95 (74-105) mg/dL Calcium 9.9 (8.4-10.2) mg/dl Total Bilirubin 1.3 H (0.2-1.0) mg/dL AST 36 (10-42) IU/L ALT 38 (10-60) IU/L Alkaline Phosphatase 203 H (42-121) IU/L Total Protein 7.1 (6.7-8.2) g/dl Albumin 3.8 (3.2-5.5) g/dl Globulin 3.3 Albumin/Globulin Ratio 1.15 HCG, Qual Negative Meds: Medications Discontinued Medications Generic Name Dose Route Start Last Admin Trade Name Freq PRN Reason Stop Dose Admin Ketorolac Tromethamine 30 mg 08/27/18 14:13 08/27/18 14:24 Toradol IM 08/27/18 14:14 30 mg ONETIME ONE Administration - Re-Assessments/Exams Free Text/Narrative Re-Assessment/Exam: 08/27/18 15:03 results discussed with pt who is feeling better s/p toradol Departure - Departure Time of Disposition: 15:03 Disposition: Home, Self-Care 01 Condition: Good Clinical Impression: Pleurisy - Discharge Information Instructions: Pleurisy, [id number] Forms: ED Department Discharge Additional Instructions: 1) heat to sore area 2) take motrin as needed 3) follow up at clinic
[2018-08-27 14:45] LABS: ANION GAP 14.1; CHLORIDE,CL 108 mmol/L (101-111); SODIUM,NA 137 mmol/L (135-145)
== END 2018-08-27 15:08 | disposition home or self-care (01) ==
LOC: DL.ED 13:59
DX: R09.1 Pleurisy (principal)
CPT/HCPCS: 36415; 80053; 84703; 85025; 85379; 96372; 99284; J1885

== ENCOUNTER 2018-10-19 02:40 | Emergency (ER) | payer MEDICAID, OTHER ==
[2018-10-19 02:48] VITALS: BP 150/81
[2018-10-19] MEDS ORDERED: Sodium Chloride 0.9% 10 ML Syringe FLUSH PRN (02:51)
--- NOTE | 2018-10-19 03:06 | EDM.PDOC ---
ED HPI GENERAL MEDICAL PROBLEM - General Chief Complaint: Abdominal Pain Stated Complaint: PAIN IN STOMACH Time Seen by Provider: 10/19/18 03:06 Source of Information: Reports: Patient, RN, RN Notes Reviewed History Limitations: Reports: No Limitations - History of Present Illness INITIAL COMMENTS - FREE TEXT/NARRATIVE: Pt to ER with c/o RLQ pain. She states the pain began "a few days ago" and has progressively gotten worse. Patient denies vomiting or diarrhea. She states she is nauseated at times. She admits to SOB at times, denies chest pains. Admits to chills, but denies fever. Pt states she had an ectopic in May of 2018. She states last "normal" menses was Jul. She states in August her menses lasted 2 days, September was missed altogether. She states she is sexually active. Also admits to still having her gallbladder and appendix. Patient denies urinary sx. 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 , Musculoskeletal History: Reports: Fracture Psychiatric History: Reports: Other (See Below) Other Psychiatric History: self cutting - Past Surgical History Female Surgical History: Reports: Other (See Below) Other Female Surgeries/Procedures: ectopic surgery Other Musculoskeletal Surgeries/Procedures:: broke left arm 10 years ago Social & Family History - Family History Family Medical History: Noncontributory - Tobacco Use Smoking Status *Q: Never Smoker Second Hand Smoke Exposure: Yes - Caffeine Use Caffeine Use: Reports: Soda - Recreational Drug Use Recreational Drug Use: No - Living Situation & Occupation Living situation: Reports: with Family ED ROS GENERAL - Review of Systems Review Of Systems: ROS reveals no pertinent complaints other than HPI. ED EXAM, GI/ABD - Physical Exam Exam: See Below Exam Limited By: No Limitations General Appearance: Alert, WD/WN, Moderate Distress Eyes: Bilateral: Normal Appearance, EOMI Ears: Normal External Exam, Hearing Grossly Normal Nose: Normal Inspection Throat/Mouth: Normal Inspection, Normal Voice, No Airway Compromise Head: Atraumatic, Normocephalic Neck: Normal Inspection, Supple, Non-Tender, Full Range of Motion Respiratory/Chest: No Respiratory Distress, Lungs Clear, Normal Breath Sounds, No Accessory Muscle Use, Chest Non-Tender Cardiovascular: Normal Peripheral Pulses, Regular Rate, Rhythm, No Edema, No Gallop, No JVD, No Murmur, No Rub GI/Abdominal Exam: Normal Bowel Sounds, Soft, No Organomegaly, No Distention, No Abnormal Bruit, No Mass, Tender (RLQ, LLQ) (Female) Exam: Deferred Rectal (Female) Exam: Deferred Back Exam: Normal Inspection, Full Range of Motion Extremities: Normal Inspection, Normal Range of Motion, Non-Tender, Normal Capillary Refill, No Pedal Edema Neurological: Alert, Oriented, CN II-XII Intact, Normal Cognition, Normal Gait, Normal Reflexes, No Motor/Sensory Deficits Psychiatric: Normal Affect, Normal Mood Skin Exam: Warm, Dry, Intact, Normal Color, No Rash Lymphatic: No Adenopathy Course - Vital Signs Last Recorded V/S: Last Vital Signs Temp 98.1 F 10/19/18 02:44 Pulse 125 H 10/19/18 02:44 Resp 19 10/19/18 02:44 BP 150/81 H 10/19/18 02:44 Pulse Ox 99 10/19/18 02:44 - Orders/Labs/Meds Orders: Active Orders 24 hr Category Date Time Status Peripheral IV Care [RC] . DIRECTED Care 10/19/18 02:52 Active Abdomen Pelvis w Cont [CT] Urgent Exams 10/19/18 03:45 Taken CULTURE URINE [RM] Stat Lab 10/19/18 02:59 Received Peripheral IV Insertion Adult [OM.PC] Stat Oth 10/19/18 02:51 Ordered Labs: Laboratory Tests 10/19/18 10/19/18 10/19/18 Range/Units 02:51 02:51 02:51 WBC 9.1 (5.0-10.0) 10^3/uL RBC 4.24 (4.2-5.4) 10^6/uL Hgb 12.3 (12.0-16.0) g/dL Hct 34.8 L (37.0-47.0) % MCV 82.1 (80-100) fL MCH 29.0 (27.0-34.0) pg MCHC 35.3 H (33.0-35.0) g/dL Plt Count 223 (150-450) 10^3/uL Neut % (Auto) 47.0 (42.2-75.2) % Lymph % (Auto) 42.3 (20.5-50.1) % [place] % (Auto) 9.2 H (2-8) % Eos % (Auto) 1.5 (1.0-3.0) % Baso % (Auto) 0.0 (0.0-1.0) % Sodium 139 (135-145) mmol/L Potassium 3.5 L (3.6-5.0) mmol/L Chloride 109 (101-111) mmol/L Carbon Dioxide 19.0 L (21.0-31.0) mmol/L Anion Gap 14.5 BUN 14 (7-18) mg/dL Creatinine 0.5 L (0.6-1.3) mg/dL Est Cr Clr Drug Dosing 124.85 mL/min Estimated GFR (MDRD) > 60 BUN/Creatinine Ratio 28.00 Glucose 114 H (74-105) mg/dL Calcium 9.5 (8.4-10.2) mg/dl Total Bilirubin 0.6 (0.2-1.0) mg/dL AST 34 (10-42) IU/L ALT 36 (10-60) IU/L Alkaline Phosphatase 224 H (42-121) IU/L Total Protein 6.7 (6.7-8.2) g/dl Albumin 3.8 (3.2-5.5) g/dl Globulin 2.9 Albumin/Globulin Ratio 1.31 HCG, Qual Negative Urine Color (YELLOW) Urine Appearance (CLEAR) Urine pH (5.0-9.0) Ur Specific [place] (1.005-1.030) Urine Protein (NEGATIVE) Urine Glucose (UA) (NEGATIVE) Urine Ketones (NEGATIVE) Urine Occult Blood (NEGATIVE) Urine Nitrite (NEGATIVE) Urine Bilirubin (NEGATIVE) Urine Urobilinogen (0.2-1.0) mg/dL Ur Leukocyte Esterase (NEGATIVE) Urine RBC /HPF Urine WBC (0-5/HPF) /HPF Ur Epithelial Cells /HPF Urine Bacteria (0-FEW/HPF) /HPF Urinalysis Comment Urine HCG, Qual Urine Opiates Screen (NEGATIVE) Ur Oxycodone Screen (NEGATIVE) Urine Methadone Screen (NEGATIVE) Ur Barbiturates Screen (NEGATIVE) U Tricyclic Antidepress (NEGATIVE) Ur Phencyclidine Scrn (NEGATIVE) Ur Amphetamine Screen (NEGATIVE) U Methamphetamines Scrn (NEGATIVE) Urine MDMA Screen (NEGATIVE) U Benzodiazepines Scrn (NEGATIVE) Urine Cocaine Screen (NEGATIVE) U Marijuana (THC) Screen (NEGATIVE) 10/19/18 10/19/18 10/19/18 Range/Units 02:59 02:59 02:59 WBC (5.0-10.0) 10^3/uL RBC (4.2-5.4) 10^6/uL Hgb (12.0-16.0) g/dL Hct (37.0-47.0) % MCV (80-100) fL MCH (27.0-34.0) pg MCHC (33.0-35.0) g/dL Plt Count (150-450) 10^3/uL Neut % (Auto) (42.2-75.2) % Lymph % (Auto) (20.5-50.1) % [place] % (Auto) (2-8) % Eos % (Auto) (1.0-3.0) % Baso % (Auto) (0.0-1.0) % Sodium (135-145) mmol/L Potassium (3.6-5.0) mmol/L Chloride (101-111) mmol/L Carbon Dioxide (21.0-31.0) mmol/L Anion Gap BUN (7-18) mg/dL Creatinine (0.6-1.3) mg/dL Est Cr Clr Drug Dosing mL/min Estimated GFR (MDRD) BUN/Creatinine Ratio Glucose (74-105) mg/dL Calcium (8.4-10.2) mg/dl Total Bilirubin (0.2-1.0) mg/dL AST (10-42) IU/L ALT (10-60) IU/L Alkaline Phosphatase (42-121) IU/L Total Protein (6.7-8.2) g/dl Albumin (3.2-5.5) g/dl Globulin Albumin/Globulin Ratio HCG, Qual Urine Color Yellow (YELLOW) Urine Appearance Clear (CLEAR) Urine pH 7.0 (5.0-9.0) Ur Specific [place] 1.020 (1.005-1.030) Urine Protein Negative (NEGATIVE) Urine Glucose (UA) Negative (NEGATIVE) Urine Ketones Negative (NEGATIVE) Urine Occult Blood Trace-intact H (NEGATIVE) Urine Nitrite Negative (NEGATIVE) Urine Bilirubin Negative (NEGATIVE) Urine Urobilinogen 1.0 (0.2-1.0) mg/dL Ur Leukocyte Esterase Trace H (NEGATIVE) Urine RBC 0-5 /HPF Urine WBC 0-5 (0-5/HPF) /HPF Ur Epithelial Cells Few /HPF Urine Bacteria Few (0-FEW/HPF) /HPF Urinalysis Comment Urine HCG, Qual Negative Urine Opiates Screen Negative (NEGATIVE) Ur Oxycodone Screen Negative (NEGATIVE) Urine Methadone Screen Negative (NEGATIVE) Ur Barbiturates Screen Negative (NEGATIVE) U Tricyclic Antidepress Negative (NEGATIVE) Ur Phencyclidine Scrn Negative (NEGATIVE) Ur Amphetamine Screen Negative (NEGATIVE) U Methamphetamines Scrn Negative (NEGATIVE) Urine MDMA Screen Negative (NEGATIVE) U Benzodiazepines Scrn Negative (NEGATIVE) Urine Cocaine Screen Negative (NEGATIVE) U Marijuana (THC) Screen Negative (NEGATIVE) Meds: Medications Discontinued Medications Generic Name Dose Route Start Last Admin Trade Name Freq PRN Reason Stop Dose Admin Sodium Chloride 1,000 mls @ 999 mls/hr 10/19/18 03:34 10/19/18 03:38 Normal Saline IV 10/19/18 04:34 999 mls/hr .BOLUS ONE Administration Iopamidol 75 ml 10/19/18 03:48 10/19/18 04:14 Isovue-300 (61%) IVPUSH 10/19/18 03:49 75 ml ONETIME ONE Administration Ondansetron HCl 4 mg 10/19/18 03:37 10/19/18 03:39 Zofran IV 10/19/18 03:38 4 mg ONETIME ONE Administration Sodium Chloride 10 ml 10/19/18 02:51 10/19/18 03:00 Saline Flush FLUSH 10 ml ASDIRECTED PRN Administration Keep Vein Open - Radiology Interpretation Free Text/Narrative:: CT Abdomen/Pelvis with contrast: FINDINGS: ABDOMEN: Liver: No suspicious lesions. Gallbladder and bile ducts: No acute or concerning findings. Pancreas: Unremarkable. No ductal dilation. Spleen: No suspicious lesions. Adrenals: Unremarkalbe. No suspicious mass. Kidneys and ureters: Mild right-sided hydronephrosis. Stomach and bowel: Unremarkable. No obstruction or inflammatory changes. Appendix: Normal appendix. PELVIS: Bladder: Unremarkable as visualized. Reproductive: Unremarkable as visualized. ABDOMEN and PELVIS: Intraperitoneal space: No free air. No significant fluid collection. Bones/joints: No acute fracture. No dislocation. Soft tissues: Unremarkable. Vasculature: Unremarkable. No acute findings Lymph nodes: Unremarkable. IMPRESSION: Mild right-sided hydronephrosis with no obvious obstructing stone or lesion. Thank you for allowing us to participate in the care of your patient. Dictated and Authenticated by: Macario Fry MD 10/19/2018 4:23 AM Central Time ([place] & [place]) See rad report Departure - Departure Time of Disposition: 04:33 Disposition: Home, Self-Care 01 Condition: Fair Clinical Impression: Abdominal pain Qualifiers: Abdominal location: right lower quadrant Qualified Code(s): R10.31 - Right lower quadrant pain - Discharge Information *PRESCRIPTION DRUG MONITORING PROGRAM REVIEWED*: No *COPY OF PRESCRIPTION DRUG MONITORING REPORT IN PATIENT GLENIS: No Instructions: Abdominal Pain, Adult, [id number] Referrals: PCP,None [Primary Care Provider] - Forms: ED Department Discharge Additional Instructions: Drink plenty of fluids Follow up with your primary care facility May use Tylenol and/or Ibuprofen as directed for pain - My Orders Last 24 Hours: My Active Orders 10/19/18 02:51 Peripheral IV Insertion Adult [OM.PC] Stat 10/19/18 02:52 Peripheral IV Care [RC] . DIRECTED 10/19/18 02:59 CULTURE URINE [RM] Stat 10/19/18 03:45 Abdomen Pelvis w Cont [CT] Urgent - Assessment/Plan Last 24 Hours: My Active Orders 10/19/18 02:51 Peripheral IV Insertion Adult [OM.PC] Stat 10/19/18 02:52 Peripheral IV Care [RC] . DIRECTED 10/19/18 02:59 CULTURE URINE [RM] Stat 10/19/18 03:45 Abdomen Pelvis w Cont [CT] Urgent
[2018-10-19 03:29] LABS: ANION GAP 14.5; CHLORIDE,CL 109 mmol/L (101-111); SODIUM,NA 139 mmol/L (135-145)
[2018-10-19] MEDS ORDERED: Sodium Chloride 0.9% 1,000 ML IV ONE (03:34)
[2018-10-19] MEDS ORDERED: Ondansetron 4 MG/2 ML SDV IV ONE (03:37)
[2018-10-19] MEDS ORDERED: Iopamidol 612 MG/ML 75 ML Bottle IVPUSH ONE (03:48)
== END 2018-10-19 04:40 | disposition home or self-care (01) ==
LOC: DL.ED 02:40
DX: R10.31 Right lower quadrant pain (principal); Z77.22 Contact with and (suspected) exposure to environmental tobacco smoke (acute) (chronic)
CPT/HCPCS: 36415; 74177; 80053; 80305; 81001; 81025; 84703; 85025; 87086; 96361; 96374; 99284; J2405; J7030; Q9967

== ENCOUNTER 2018-12-03 13:37 | Emergency (ER) | payer OTHER ==
[2018-12-03 13:53] VITALS: BP 111/75
--- NOTE | 2018-12-03 15:10 | EDM.PDOC ---
Scribed by Izzy Lauren 12/03/18 [id number] for Zakia Zarate NP ED HPI GENERAL MEDICAL PROBLEM - General Chief Complaint: Lower Extremity Injury/Pain Stated Complaint: LEG PAINS [id number] Time Seen by Provider: 12/03/18 13:52 Source of Information: Reports: Patient, RN, RN Notes Reviewed History Limitations: Reports: No Limitations - History of Present Illness INITIAL COMMENTS - FREE TEXT/NARRATIVE: Patient presented to the ER with complaint of right ankle pain. Patient states she tripped over her child's toy this a.m. and rolled her right ankle. No previous injury. She denies chances of . Onset: Today Duration: Constant Location: Reports: Lower Extremity, Right Quality: Reports: Ache Severity: Mild Improves with: Reports: None Worsens with: Reports: None Associated Symptoms: Reports: No Other Symptoms Right Ankle Pain Score (Numeric/FACES): 8 - Related Data Allergies Allergy/AdvReac Type Severity Reaction Status Date / Time No Known Allergies Allergy Verified 12/03/18 13:47 Home Meds: Home Meds . 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 , Musculoskeletal History: Reports: Fracture Psychiatric History: Reports: Other (See Below) Other Psychiatric History: self cutting - Past Surgical History Female Surgical History: Reports: Other (See Below) Other Female Surgeries/Procedures: ectopic surgery Other Musculoskeletal Surgeries/Procedures:: broke left arm 10 years ago Social & Family History - Family History Family Medical History: Noncontributory - Caffeine Use Caffeine Use: Reports: Soda - Living Situation & Occupation Living situation: Reports: with Family Review of Systems - Review of Systems Review Of Systems: ROS reveals no pertinent complaints other than HPI. ED EXAM, GENERAL - Physical Exam Exam: See Below Exam Limited By: No Limitations General Appearance: Alert, WD/WN, No Apparent Distress Eye Exam: Bilateral Eye: Normal Inspection Ears: Normal External Exam, Normal Canal, Hearing Grossly Normal, Normal TMs Nose: Normal Inspection, Normal Mucosa, No Blood Throat/Mouth: Normal Inspection, Normal Lips, Normal Teeth, Normal Gums, Normal Oropharynx, Normal Voice, No Airway Compromise Head: Atraumatic, Normocephalic Neck: Normal Inspection, Supple, Non-Tender, Full Range of Motion Respiratory/Chest: No Respiratory Distress, Lungs Clear, Normal Breath Sounds, No Accessory Muscle Use, Chest Non-Tender Cardiovascular: Normal Peripheral Pulses, Regular Rate, Rhythm, No Edema, No Gallop, No JVD, No Murmur, No Rub GI/Abdominal: Normal Bowel Sounds, Soft, Non-Tender, No Organomegaly, No Distention, No Abnormal Bruit, No Mass (Female) Exam: Deferred Rectal (Female) Exam: Deferred Back Exam: Normal Inspection, Full Range of Motion, NT Extremities: Other (minimal swelling right ankle) Neurological: Alert, Oriented, CN II-XII Intact, Normal Cognition, Normal Gait, Normal Reflexes, No Motor/Sensory Deficits Psychiatric: Normal Affect, Normal Mood Skin Exam: Warm, Dry, Intact, Normal Color, No Rash Lymphatic: No Adenopathy Course - Vital Signs Last Recorded V/S: Last Vital Signs Temp 98.6 F 12/03/18 13:47 Pulse 106 H 12/03/18 13:47 Resp 16 12/03/18 13:47 BP 111/75 12/03/18 13:47 Pulse Ox 98 12/03/18 13:47 - Orders/Labs/Meds Orders: Active Orders 24 hr Category Date Time Status Ankle Min 3V Rt [CR] Urgent Exams 12/03/18 13:56 Taken - Radiology Interpretation Free Text/Narrative:: Right ankle xray: FINDINGS: Bones/joints: There is no evidence of acute fracture. There is no evidence of joint malalignment or dislocation. Soft tissues: There are no soft tissue masses or fluid collections. IMPRESSION: 1. There is no evidence of acute fracture. 2. There is no evidence of joint malalignment or dislocation. Thank you for allowing us to participate in the care of your patient. Dictated and Authenticated by: Bennett Donahue DO 12/03/2018 2:47 PM Central Time ([place] & [place]) See rad report Departure - Departure Time of Disposition: 14:51 Disposition: Home, Self-Care 01 Condition: Fair Clinical Impression: Ankle sprain Qualifiers: Encounter type: initial encounter Involved ligament of ankle: unspecified ligament Laterality: right Qualified Code(s): S93.401A - Sprain of unspecified ligament of right ankle, initial encounter - Discharge Information *PRESCRIPTION DRUG MONITORING PROGRAM REVIEWED*: No *COPY OF PRESCRIPTION DRUG MONITORING REPORT IN PATIENT GLENIS: No Instructions: Ankle Sprain, [id number], Elastic Bandage and RICE Forms: ED Department Discharge Additional Instructions: Rest, Ice, Elevate the ankle as tolerated May use SAYRA Bandage for support as tolerated Follow up with your primary care facility if no improvement May use Tylenol and/or Ibuprofen as directed for pain - My Orders Last 24 Hours: My Active Orders 12/03/18 13:56 Ankle Min 3V Rt [CR] Urgent - Assessment/Plan Last 24 Hours: My Active Orders 12/03/18 13:56 Ankle Min 3V Rt [CR] Urgent I have read and agree with the documentation that has been completed regarding this visit. By signing this record, I attest that the documentation was completed in my physical presence and is an accurate record of the encounter.
== END 2018-12-03 15:04 | disposition home or self-care (01) ==
LOC: DL.ED 13:37
DX: S93.401A Sprain of unspecified ligament of right ankle, initial encounter (principal); W22.8XXA Striking against or struck by other objects, initial encounter
CPT/HCPCS: 73610-RT; 99282; 99283-25

== ENCOUNTER 2019-02-28 00:10 | Emergency (ER) | payer MEDICAID, OTHER ==
[2019-02-28] MEDS ORDERED: Sodium Chloride 0.9% 1,000 ML IV ONE (00:28)
--- NOTE | 2019-02-28 00:33 | EDM.PDOC ---
ED HPI GENERAL MEDICAL PROBLEM - General Chief Complaint: Abdominal Pain Stated Complaint: PAIN IN STOMACH Time Seen by Provider: 02/28/19 00:20 Source of Information: Reports: Patient History Limitations: Reports: No Limitations - History of Present Illness INITIAL COMMENTS - FREE TEXT/NARRATIVE: This 23 yo female patient reports to the ED with a 2 day history of lower abdominal pain and pressure when she urinates. The patient reports she noticed the symptoms starting yesterday, but they got worse this evening. The patient reports she may be constipated, but has not taken any stool softeners. The patient did not attempt to get into the clinic for an appointment. Onset Date: 02/26/19 Duration: Constant, Getting Worse Location: Reports: Abdomen (lower abdominal pressure) Quality: Reports: Dull, Pressure Severity: Mild Improves with: Reports: None Worsens with: Reports: None Context: Reports: Other Associated Symptoms: Reports: No Other Symptoms Lower Abdominal Pain Score (Numeric/FACES): 6 - Related Data Allergies Allergy/AdvReac Type Severity Reaction Status Date / Time No Known Allergies Allergy Verified 02/28/19 00:15 Home Meds: Home Meds . 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 Social & Family History - Family History Family Medical History: Noncontributory - Tobacco Use Smoking Status *Q: Never Smoker Second Hand Smoke Exposure: Yes - Caffeine Use Caffeine Use: Reports: Soda - Recreational Drug Use Recreational Drug Use: Yes Recreational Drug Type: Reports: Other (see below) Other Recreational Drug Type: THC oil - Living Situation & Occupation Living situation: Reports: with Family ED ROS GENERAL - Review of Systems Review Of Systems: ROS reveals no pertinent complaints other than HPI. ED EXAM, GI/ABD - Physical Exam Exam: See Below Exam Limited By: No Limitations General Appearance: Alert, WD/WN, No Apparent Distress Eyes: Bilateral: Normal Appearance, EOMI Ears: Normal External Exam, Normal Canal, Hearing Grossly Normal, Normal TMs Nose: Normal Inspection, Normal Mucosa, No Blood Throat/Mouth: Normal Inspection, Normal Lips, Normal Teeth, Normal Gums, Normal Oropharynx, Normal Voice, No Airway Compromise Head: Atraumatic, Normocephalic Neck: Normal Inspection, Supple, Non-Tender, Full Range of Motion Respiratory/Chest: No Respiratory Distress, Lungs Clear, Normal Breath Sounds, No Accessory Muscle Use, Chest Non-Tender Cardiovascular: Normal Peripheral Pulses, Regular Rate, Rhythm, No Edema, No Gallop, No JVD, No Murmur, No Rub GI/Abdominal Exam: Normal Bowel Sounds, Soft, Tender (mild tenderness to palpation of the lower abdomen) (Female) Exam: Deferred Rectal (Female) Exam: Deferred Back Exam: Normal Inspection, Full Range of Motion, NT Extremities: Normal Inspection, Normal Range of Motion, Non-Tender, Normal Capillary Refill, No Pedal Edema Neurological: Alert, Oriented, CN II-XII Intact, Normal Cognition, Normal Gait, Normal Reflexes, No Motor/Sensory Deficits Psychiatric: Normal Affect, Normal Mood Skin Exam: Warm, Dry, Intact, Normal Color, No Rash Lymphatic: No Adenopathy Course - Vital Signs Last Recorded V/S: Last Vital Signs Temp 36.9 C 02/28/19 01:50 Pulse 102 H 02/28/19 01:50 Resp 14 02/28/19 01:50 BP 124/73 02/28/19 01:50 Pulse Ox 98 02/28/19 01:50 - Orders/Labs/Meds Orders: Active Orders 24 hr Category Date Time Status Abdomen Pelvis wo Cont [CT] Urgent Exams 02/28/19 01:01 Ordered CULTURE URINE [RM] Stat Lab 02/28/19 00:19 Received HYDROmorphone [Dilaudid] Med 02/28/19 02:27 Once 0.5 mg IVPUSH ONETIME ONE Labs: Laboratory Tests 02/28/19 02/28/19 02/28/19 Range/Units 00:19 00:19 00:19 WBC (5.0-10.0) 10^3/uL RBC (4.2-5.4) 10^6/uL Hgb (12.0-16.0) g/dL Hct (37.0-47.0) % MCV (80-100) fL MCH (27.0-34.0) pg MCHC (33.0-35.0) g/dL Plt Count (150-450) 10^3/uL Neut % (Auto) (42.2-75.2) % Lymph % (Auto) (20.5-50.1) % [place] % (Auto) (2-8) % Eos % (Auto) (1.0-3.0) % Baso % (Auto) (0.0-1.0) % Sodium (135-145) mmol/L Potassium (3.6-5.0) mmol/L Chloride (101-111) mmol/L Carbon Dioxide (21.0-31.0) mmol/L Anion Gap BUN (7-18) mg/dL Creatinine (0.6-1.3) mg/dL Est Cr Clr Drug Dosing mL/min Estimated GFR (MDRD) BUN/Creatinine Ratio Glucose (74-105) mg/dL Lactic Acid (0.5-2.2) mmol/L Calcium (8.4-10.2) mg/dl Total Bilirubin (0.2-1.0) mg/dL AST (10-42) IU/L ALT (10-60) IU/L Alkaline Phosphatase (42-121) IU/L Total Protein (6.7-8.2) g/dl Albumin (3.2-5.5) g/dl Globulin Albumin/Globulin Ratio Urine Color Yellow (YELLOW) Urine Appearance Slightly cloudy (CLEAR) Urine pH 5.5 (5.0-9.0) Ur Specific [place] 1.015 (1.005-1.030) Urine Protein Negative (NEGATIVE) Urine Glucose (UA) Negative (NEGATIVE) Urine Ketones Negative (NEGATIVE) Urine Occult Blood Small H (NEGATIVE) Urine Nitrite Negative (NEGATIVE) Urine Bilirubin Negative (NEGATIVE) Urine Urobilinogen 0.2 (0.2-1.0) mg/dL Ur Leukocyte Esterase Small H (NEGATIVE) Urine RBC 0-5 /HPF Urine WBC 10-20 H (0-5/HPF) /HPF Ur Epithelial Cells Many H (NOT SEEN) /HPF Amorphous Sediment Rare (NOT SEEN) /HPF Urine Bacteria Few (0-FEW/HPF) /HPF Urine Mucus Rare (NOT SEEN) /LPF Urine HCG, Qual Negative Urine Opiates Screen Negative (NEGATIVE) Ur Oxycodone Screen Negative (NEGATIVE) Urine Methadone Screen Negative (NEGATIVE) Ur Barbiturates Screen Negative (NEGATIVE) U Tricyclic Antidepress Negative (NEGATIVE) Ur Phencyclidine Scrn Negative (NEGATIVE) Ur Amphetamine Screen Negative (NEGATIVE) U Methamphetamines Scrn Negative (NEGATIVE) Urine MDMA Screen Negative (NEGATIVE) U Benzodiazepines Scrn Negative (NEGATIVE) Urine Cocaine Screen Negative (NEGATIVE) U Marijuana (THC) Screen Negative (NEGATIVE) 02/28/19 02/28/19 02/28/19 Range/Units 00:32 00:32 00:32 WBC 9.5 (5.0-10.0) 10^3/uL RBC 4.16 L (4.2-5.4) 10^6/uL Hgb 12.1 (12.0-16.0) g/dL Hct 34.4 L (37.0-47.0) % MCV 82.7 (80-100) fL MCH 29.1 (27.0-34.0) pg MCHC 35.2 H (33.0-35.0) g/dL Plt Count 212 (150-450) 10^3/uL Neut % (Auto) 51.8 (42.2-75.2) % Lymph % (Auto) 36.1 (20.5-50.1) % [place] % (Auto) 7.7 (2-8) % Eos % (Auto) 4.3 H (1.0-3.0) % Baso % (Auto) 0.1 (0.0-1.0) % Sodium 140 (135-145) mmol/L Potassium 3.6 (3.6-5.0) mmol/L Chloride 109 (101-111) mmol/L Carbon Dioxide 22.0 (21.0-31.0) mmol/L Anion Gap 12.6 BUN 9 (7-18) mg/dL Creatinine 0.5 L (0.6-1.3) mg/dL Est Cr Clr Drug Dosing 149.82 mL/min Estimated GFR (MDRD) > 60 BUN/Creatinine Ratio 18.00 Glucose 106 H (74-105) mg/dL Lactic Acid 1.2 (0.5-2.2) mmol/L Calcium 8.8 (8.4-10.2) mg/dl Total Bilirubin 0.4 (0.2-1.0) mg/dL AST 30 (10-42) IU/L ALT 33 (10-60) IU/L Alkaline Phosphatase 184 H (42-121) IU/L Total Protein 6.7 (6.7-8.2) g/dl Albumin 3.7 (3.2-5.5) g/dl Globulin 3.0 Albumin/Globulin Ratio 1.23 Urine Color (YELLOW) Urine Appearance (CLEAR) Urine pH (5.0-9.0) Ur Specific [place] (1.005-1.030) Urine Protein (NEGATIVE) Urine Glucose (UA) (NEGATIVE) Urine Ketones (NEGATIVE) Urine Occult Blood (NEGATIVE) Urine Nitrite (NEGATIVE) Urine Bilirubin (NEGATIVE) Urine Urobilinogen (0.2-1.0) mg/dL Ur Leukocyte Esterase (NEGATIVE) Urine RBC /HPF Urine WBC (0-5/HPF) /HPF Ur Epithelial Cells (NOT SEEN) /HPF Amorphous Sediment (NOT SEEN) /HPF Urine Bacteria (0-FEW/HPF) /HPF Urine Mucus (NOT SEEN) /LPF Urine HCG, Qual Urine Opiates Screen (NEGATIVE) Ur Oxycodone Screen (NEGATIVE) Urine Methadone Screen (NEGATIVE) Ur Barbiturates Screen (NEGATIVE) U Tricyclic Antidepress (NEGATIVE) Ur Phencyclidine Scrn (NEGATIVE) Ur Amphetamine Screen (NEGATIVE) U Methamphetamines Scrn (NEGATIVE) Urine MDMA Screen (NEGATIVE) U Benzodiazepines Scrn (NEGATIVE) Urine Cocaine Screen (NEGATIVE) U Marijuana (THC) Screen (NEGATIVE) Meds: Medications Discontinued Medications Generic Name Dose Route Start Last Admin Trade Name Freq PRN Reason Stop Dose Admin Sodium Chloride 1,000 mls @ 999 mls/hr 02/28/19 00:28 02/28/19 00:35 Normal Saline IV 02/28/19 01:28 999 mls/hr .BOLUS ONE Administration - Re-Assessments/Exams Free Text/Narrative Re-Assessment/Exam: 02/28/19 02:27 A consult call was placed to Dr. Stone ([facility] riding double). Dr. Stone advised to have the patient call his nurse in the morning to schedule an ultrasound here in [place]. After the ultrasound, Dr. Stone will schedule further appointments for treatment. Departure - Departure Time of Disposition: 02:34 Disposition: Home, Self-Care 01 Condition: Fair Clinical Impression: Adnexal cyst - Discharge Information *PRESCRIPTION DRUG MONITORING PROGRAM REVIEWED*: Not Applicable *COPY OF PRESCRIPTION DRUG MONITORING REPORT IN PATIENT GLENIS: Not Applicable Forms: ED Department Discharge Care Plan Goals: The patient was advised of the examination, lab and CT results during the visit. A consult call was placed to Dr. Stone (riding double with [facility] in [place] ). Dr. Stone would like the patient to call his nurses at to schedule an ultrasound in [place] tomorrow morning. Dr. Stone will coordinate further appointment for evaluation and treatment. The patient was given an IV dose of Dilaudid while in the ED. The patient should follow-up with Dr. Stone's Office in the morning for continued evaluation and management. - My Orders Last 24 Hours: My Active Orders 02/28/19 00:19 CULTURE URINE [RM] Stat 02/28/19 01:01 Abdomen Pelvis wo Cont [CT] Urgent 02/28/19 02:27 HYDROmorphone [Dilaudid] 0.5 mg IVPUSH ONETIME ONE - Assessment/Plan Last 24 Hours: My Active Orders 02/28/19 00:19 CULTURE URINE [RM] Stat 02/28/19 01:01 Abdomen Pelvis wo Cont [CT] Urgent 02/28/19 02:27 HYDROmorphone [Dilaudid] 0.5 mg IVPUSH ONETIME ONE
[2019-02-28 00:58] LABS: ANION GAP 12.6; CHLORIDE,CL 109 mmol/L (101-111); SODIUM,NA 140 mmol/L (135-145)
[2019-02-28] MEDS ORDERED: HYDROmorphone 1 MG/ML Syringe IVPUSH ONE (02:27)
[2019-02-28 02:56] VITALS: BP 133/67; PULSE 104
== END 2019-02-28 02:57 | disposition home or self-care (01) ==
LOC: DL.ED 00:10
DX: N83.8 Other noninflammatory disorders of ovary, fallopian tube and broad ligament (principal); Z40.03 Encounter for prophylactic removal of fallopian tube(s); Z77.22 Contact with and (suspected) exposure to environmental tobacco smoke (acute) (chronic)
CPT/HCPCS: 36415; 74176; 80053; 80305; 81001; 81025; 83605; 85025; 87086; 96361; 96374; 99284; J1170; J7030

== ENCOUNTER 2019-02-28 23:26 | Emergency (ER) | payer MEDICAID, OTHER ==
[2019-02-28] MEDS ORDERED: Acetaminophen/oxyCODONE 325-5 MG Tab PO ONE ×2 (23:27→23:41)
--- NOTE | 2019-02-28 23:47 | EDM.PDOC ---
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 The patient was seen in the ED this morning at about 0300 for a large left ovarian cyst. A consult with Dr. Stone (SOFTWARE QUALITY ASSURANCE SPECIALIST from [facility] in [place]) resulted in recommending the patient call his office in the morning to get an appointment for an Ultrasound. The patient reports she called at 0830 this morning, but the clinic could not get her into get an ultrasound until tomorrow. The patient reports she had increased pain starting at about 1800 this evening. The patient did take Tylenol with no symptom relief. The patient currently rates her pain at a 9/10. 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 Social & Family History - Family History Family Medical History: Noncontributory - Tobacco Use Smoking Status *Q: Never Smoker Second Hand Smoke Exposure: Yes - Caffeine Use Caffeine Use: Reports: Soda - Recreational Drug Use Recreational Drug Use: No - Living Situation & Occupation Living situation: Reports: with Family ED ROS GENERAL - Review of Systems Review Of Systems: ROS reveals no pertinent complaints other than HPI. ED EXAM, GI/ABD - Physical Exam Exam: See Below Exam Limited By: No Limitations General Appearance: Alert, WD/WN, Moderate Distress Eyes: Bilateral: Normal Appearance, EOMI Ears: Normal External Exam, Normal Canal, Hearing Grossly Normal, Normal TMs Nose: Normal Inspection, Normal Mucosa, No Blood Throat/Mouth: Normal Inspection, Normal Lips, Normal Teeth, Normal Gums, Normal Oropharynx, Normal Voice, No Airway Compromise Head: Atraumatic, Normocephalic Neck: Normal Inspection, Supple, Non-Tender, Full Range of Motion Respiratory/Chest: No Respiratory Distress, Lungs Clear, Normal Breath Sounds, No Accessory Muscle Use, Chest Non-Tender Cardiovascular: Normal Peripheral Pulses, Regular Rate, Rhythm, No Edema, No Gallop, No JVD, No Murmur, No Rub GI/Abdominal Exam: Normal Bowel Sounds, No Organomegaly, No Distention, No Abnormal Bruit, No Mass, Pelvis Stable, Tender (lower abdominal tenderness to palpation) (Female) Exam: Deferred Rectal (Female) Exam: Deferred Back Exam: Normal Inspection, Full Range of Motion, NT Extremities: Normal Inspection, Normal Range of Motion, Non-Tender, Normal Capillary Refill, No Pedal Edema Neurological: Alert, Oriented, CN II-XII Intact, Normal Cognition, Normal Gait, Normal Reflexes, No Motor/Sensory Deficits Psychiatric: Normal Affect, Normal Mood Lymphatic: No Adenopathy Course - Vital Signs Last Recorded V/S: Last Vital Signs Temp 36.9 C 02/28/19 23:30 Pulse 103 H 02/28/19 23:30 Resp 16 02/28/19 23:30 BP 133/64 02/28/19 23:30 Pulse Ox 100 02/28/19 23:30 - Orders/Labs/Meds Meds: Medications Discontinued Medications Generic Name Dose Route Start Last Admin Trade Name Freq PRN Reason Stop Dose Admin Oxycodone/Acetaminophen 1 tab 02/28/19 23:41 02/28/19 23:46 Percocet 325-5 Mg PO 02/28/19 23:42 1 tab ONETIME ONE Administration - Re-Assessments/Exams Free Text/Narrative Re-Assessment/Exam: 03/01/19 00:17 The patient reports her pain is down to a 6/10. Departure - Departure Time of Disposition: 00:17 Disposition: Home, Self-Care 01 Condition: Fair Clinical Impression: Adnexal cyst - Discharge Information *PRESCRIPTION DRUG MONITORING PROGRAM REVIEWED*: Yes *COPY OF PRESCRIPTION DRUG MONITORING REPORT IN PATIENT GLENIS: Yes Forms: ED Department Discharge Care Plan Goals: The patient was advised of the examination results during the visit. The patient was given an oral dose of Percocet while in the Ed. The patient was discharged with one additional dose of Percocet (5/325) to take in 6 hours as needed for pain . The patient was also discharged with a script for [place] (10/ 325) #8 to take 1 by mouth every 6 hours as needed for pain. The patient should follow-up with her scheduled ultrasound tomorrow and with Dr. Stone for continued evaluation and management. If the patient has any additional symptoms or concerns, the patient should either return to the emergency department or visit her primary care facility.
[2019-03-01] MEDS ORDERED: Acetaminophen/oxyCODONE 325-5 MG Tab ONE (00:21)
[2019-03-01 00:28] VITALS: BP 122/59; PULSE 94
== END 2019-03-01 00:29 | disposition home or self-care (01) ==
LOC: DL.ED 23:26
DX: N83.202 Unspecified ovarian cyst, left side (principal); Z90.79 Acquired absence of other genital organ(s)
CPT/HCPCS: 99283; A9270

== ENCOUNTER 2019-06-16 23:13 | Emergency (ER) | payer MEDICAID, OTHER ==
[2019-06-16 23:34] VITALS: BP 141/74; PULSE 104
--- NOTE | 2019-06-16 23:44 | EDM.PDOC ---
ED HPI GENERAL MEDICAL PROBLEM - General Chief Complaint: Abdominal Pain Stated Complaint: FRONT RIGHT STOMACH PAINS MOVES TOWARD THE BACK Time Seen by Provider: 06/16/19 23:43 Source of Information: Reports: Patient History Limitations: Reports: No Limitations - History of Present Illness INITIAL COMMENTS - FREE TEXT/NARRATIVE: onset RLQ pain going to back since yesterday. gives h/o OV cyste & K-stones. Treatments ACIDITY TESTER: Reports: NSAIDS Right Lower Abdomen Pain Score (Numeric/FACES): 8 - Related Data Allergies Allergy/AdvReac Type Severity Reaction Status Date / Time No Known Allergies Allergy Verified 06/16/19 23:26 Home Meds: Home Meds . 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 Social & Family History - Family History Family Medical History: Noncontributory - Tobacco Use Smoking Status *Q: Never Smoker Second Hand Smoke Exposure: Yes - Caffeine Use Caffeine Use: Reports: Soda - Recreational Drug Use Recreational Drug Use: No - Living Situation & Occupation Living situation: Reports: with Family ED ROS GENERAL - Review of Systems Review Of Systems: Comprehensive ROS is negative, except as noted in HPI. ED EXAM, GI/ABD - Physical Exam Exam: See Below Exam Limited By: No Limitations General Appearance: Alert, WD/WN, Mild Distress, Other (discomfort). No: Active Emesis Ears: Hearing Grossly Normal Throat/Mouth: Normal Voice, No Airway Compromise Head: Atraumatic Neck: Non-Tender, Full Range of Motion Respiratory/Chest: No Respiratory Distress Cardiovascular: Regular Rate, Rhythm GI/Abdominal Exam: Guarding, Tender, Other (RLQ-EPIG region). No: Distended, Rigid, Rebound Neurological: Alert, Oriented, Normal Cognition, Normal Gait, No Motor/Sensory Deficits Psychiatric: Normal Affect, Normal Mood Skin Exam: Warm, Dry, Normal Color Lymphatic: No Adenopathy Course - Vital Signs Last Recorded V/S: Last Vital Signs Temp 37.0 C 06/16/19 23:27 Pulse 104 H 06/16/19 23:27 Resp 16 06/16/19 23:27 BP 141/74 H 06/16/19 23:27 Pulse Ox 97 06/16/19 23:27 - Orders/Labs/Meds Orders: Active Orders 24 hr Category Date Time Status Abdomen Pelvis wo Cont [CT] Urgent Exams 06/17/19 00:53 Taken Acetaminophen/HYDROcodone [[place] 325-10 MG] Med 06/17/19 02:18 Once 1 tab PO ONETIME ONE Labs: Laboratory Tests 06/16/19 06/16/19 06/16/19 Range/Units 23:30 23:30 23:30 WBC 9.0 (5.0-10.0) 10^3/uL RBC 4.55 (4.2-5.4) 10^6/uL Hgb 13.5 (12.0-16.0) g/dL Hct 37.3 (37.0-47.0) % MCV 82.0 (80-100) fL MCH 29.7 (27.0-34.0) pg MCHC 36.2 H (33.0-35.0) g/dL Plt Count 216 (150-450) 10^3/uL Neut % (Auto) 67.8 (42.2-75.2) % Lymph % (Auto) 23.9 (20.5-50.1) % [place] % (Auto) 6.5 (2-8) % Eos % (Auto) 1.8 (1.0-3.0) % Baso % (Auto) 0.0 (0.0-1.0) % Sodium 137 (135-145) mmol/L Potassium 3.9 (3.6-5.0) mmol/L Chloride 106 (101-111) mmol/L Carbon Dioxide 22.0 (21.0-31.0) mmol/L Anion Gap 12.9 BUN 12 (7-18) mg/dL Creatinine 0.6 (0.6-1.3) mg/dL Est Cr Clr Drug Dosing 128.98 mL/min Estimated GFR (MDRD) > 60 BUN/Creatinine Ratio 20.00 Glucose 141 H (74-105) mg/dL Calcium 9.1 (8.4-10.2) mg/dl Total Bilirubin 0.5 (0.2-1.0) mg/dL AST 41 (10-42) IU/L ALT 38 (10-60) IU/L Alkaline Phosphatase 162 H (42-121) IU/L Total Protein 7.2 (6.7-8.2) g/dl Albumin 4.0 (3.2-5.5) g/dl Globulin 3.2 Albumin/Globulin Ratio 1.25 HCG, Qual Negative Urine Color (YELLOW) Urine Appearance (CLEAR) Urine pH (5.0-9.0) Ur Specific [place] (1.005-1.030) Urine Protein (NEGATIVE) Urine Glucose (UA) (NEGATIVE) Urine Ketones (NEGATIVE) Urine Occult Blood (NEGATIVE) Urine Nitrite (NEGATIVE) Urine Bilirubin (NEGATIVE) Urine Urobilinogen (0.2-1.0) mg/dL Ur Leukocyte Esterase (NEGATIVE) Urine RBC /HPF Urine WBC (0-5/HPF) /HPF Ur Epithelial Cells (NOT SEEN) /HPF Urine Bacteria (0-FEW/HPF) /HPF Urine Opiates Screen (NEGATIVE) Ur Oxycodone Screen (NEGATIVE) Urine Methadone Screen (NEGATIVE) Ur Barbiturates Screen (NEGATIVE) U Tricyclic Antidepress (NEGATIVE) Ur Phencyclidine Scrn (NEGATIVE) Ur Amphetamine Screen (NEGATIVE) U Methamphetamines Scrn (NEGATIVE) Urine MDMA Screen (NEGATIVE) U Benzodiazepines Scrn (NEGATIVE) Urine Cocaine Screen (NEGATIVE) U Marijuana (THC) Screen (NEGATIVE) 06/17/19 06/17/19 Range/Units 00:17 00:17 WBC (5.0-10.0) 10^3/uL RBC (4.2-5.4) 10^6/uL Hgb (12.0-16.0) g/dL Hct (37.0-47.0) % MCV (80-100) fL MCH (27.0-34.0) pg MCHC (33.0-35.0) g/dL Plt Count (150-450) 10^3/uL Neut % (Auto) (42.2-75.2) % Lymph % (Auto) (20.5-50.1) % [place] % (Auto) (2-8) % Eos % (Auto) (1.0-3.0) % Baso % (Auto) (0.0-1.0) % Sodium (135-145) mmol/L Potassium (3.6-5.0) mmol/L Chloride (101-111) mmol/L Carbon Dioxide (21.0-31.0) mmol/L Anion Gap BUN (7-18) mg/dL Creatinine (0.6-1.3) mg/dL Est Cr Clr Drug Dosing mL/min Estimated GFR (MDRD) BUN/Creatinine Ratio Glucose (74-105) mg/dL Calcium (8.4-10.2) mg/dl Total Bilirubin (0.2-1.0) mg/dL AST (10-42) IU/L ALT (10-60) IU/L Alkaline Phosphatase (42-121) IU/L Total Protein (6.7-8.2) g/dl Albumin (3.2-5.5) g/dl Globulin Albumin/Globulin Ratio HCG, Qual Urine Color Yellow (YELLOW) Urine Appearance Slightly cloudy (CLEAR) Urine pH 7.0 (5.0-9.0) Ur Specific [place] 1.020 (1.005-1.030) Urine Protein Negative (NEGATIVE) Urine Glucose (UA) Negative (NEGATIVE) Urine Ketones Negative (NEGATIVE) Urine Occult Blood Trace-intact H (NEGATIVE) Urine Nitrite Negative (NEGATIVE) Urine Bilirubin Negative (NEGATIVE) Urine Urobilinogen 1.0 (0.2-1.0) mg/dL Ur Leukocyte Esterase Negative (NEGATIVE) Urine RBC 0-5 /HPF Urine WBC 0-5 (0-5/HPF) /HPF Ur Epithelial Cells Few (NOT SEEN) /HPF Urine Bacteria Few (0-FEW/HPF) /HPF Urine Opiates Screen Negative (NEGATIVE) Ur Oxycodone Screen Negative (NEGATIVE) Urine Methadone Screen Negative (NEGATIVE) Ur Barbiturates Screen Negative (NEGATIVE) U Tricyclic Antidepress Negative (NEGATIVE) Ur Phencyclidine Scrn Negative (NEGATIVE) Ur Amphetamine Screen Negative (NEGATIVE) U Methamphetamines Scrn Negative (NEGATIVE) Urine MDMA Screen Negative (NEGATIVE) U Benzodiazepines Scrn Negative (NEGATIVE) Urine Cocaine Screen Negative (NEGATIVE) U Marijuana (THC) Screen Negative (NEGATIVE) Meds: Medications Discontinued Medications Generic Name Dose Route Start Last Admin Trade Name Freq PRN Reason Stop Dose Admin Sodium Chloride 1,000 mls @ 999 mls/hr 06/16/19 23:47 06/16/19 23:53 Normal Saline IV 06/17/19 00:47 999 mls/hr .BOLUS ONE Administration Iopamidol 75 ml 06/17/19 00:39 Isovue-300 (61%) IVPUSH 06/17/19 00:41 ONETIME ONE Iopamidol 100 ml 06/17/19 00:52 Isovue-300 (61%) IVPUSH 06/17/19 00:53 ONETIME ONE - Re-Assessments/Exams Free Text/Narrative Re-Assessment/Exam: 06/17/19 02:18 results discussed with pt who is feeling better now but not 100% Departure - Departure Time of Disposition: 02:19 Disposition: Home, Self-Care 01 Condition: Good Clinical Impression: Renal colic on right side - Discharge Information Instructions: Renal Colic, [id number] Forms: ED Department Discharge Additional Instructions: 1) drink lots of liquids 2) follow up at clinic 3) take tylenol or motrin as needed for discomfort Sepsis Event Note - Evaluation Sepsis Screening Result: No Definite Risk - Focused Exam Vital Signs: Vital Signs Temp Pulse Resp BP Pulse Ox 06/16/19 23:27 37.0 C 104 H 16 141/74 H 97 Date Exam was Performed: 06/17/19 Time Exam was Performed: 02:18 - My Orders Last 24 Hours: My Active Orders 06/17/19 00:53 Abdomen Pelvis wo Cont [CT] Urgent 06/17/19 02:18 Acetaminophen/HYDROcodone [[place] 325-10 MG] 1 tab PO ONETIME ONE - Assessment/Plan Last 24 Hours: My Active Orders 06/17/19 00:53 Abdomen Pelvis wo Cont [CT] Urgent 06/17/19 02:18 Acetaminophen/HYDROcodone [[place] 325-10 MG] 1 tab PO ONETIME ONE
[2019-06-16] MEDS ORDERED: Sodium Chloride 0.9% 1,000 ML IV ONE (23:47)
[2019-06-17] MEDS ORDERED: Iopamidol 612 MG/ML 100 ML Bottle IVPUSH ONE ×2 (00:39→00:52)
[2019-06-17 00:42] LABS: ANION GAP 12.9; CHLORIDE,CL 106 mmol/L (101-111); SODIUM,NA 137 mmol/L (135-145)
[2019-06-17] MEDS ORDERED: Acetaminophen/HYDROcodone 325-10 MG Tab PO ONE (02:18)
== END 2019-06-17 02:28 | disposition home or self-care (01) ==
LOC: DL.ED 23:13
DX: N23 Unspecified renal colic (principal); Z87.442 Personal history of urinary calculi
CPT/HCPCS: 36415; 74176; 80053; 80305; 81001; 84703; 85025; 96360; 96361; 99284; A9270; J7030

== ENCOUNTER 2019-07-07 06:49 | Emergency (ER) | payer MEDICAID ==
[2019-07-07 06:58] VITALS: BP 121/83; PULSE 130
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
[2019-07-07] MEDS ORDERED: Bacitracin Oint 1 GM U/D Packet TOP ONE (07:28)
[2019-07-07] MEDS ORDERED: Lidocaine 1% 30 ML SDV INJECT ONE (07:28)
[2019-07-07 08:01] LABS: ANION GAP 15.7; CHLORIDE,CL 108 mmol/L (101-111); SODIUM,NA 140 mmol/L (135-145)
[2019-07-07] MEDS ORDERED: Ibuprofen 400 MG Tab PO ONE (08:18)
== END 2019-07-07 08:56 | disposition home or self-care (01) ==
LOC: DL.ED 06:49
DX: S01.21XA Laceration without foreign body of nose, initial encounter (principal); N39.0 Urinary tract infection, site not specified; N76.0 Acute vaginitis; B96.89 Other specified bacterial agents as the cause of diseases classified elsewhere; Y08.02XA Assault by strike by baseball bat, initial encounter; Y93.89 Activity, other specified
CPT/HCPCS: 12011; 36415; 70450; 70486; 72125; 80053; 80305; 80320; 81001; 81025; 85025; 87086; 87088; 87186; 99284; A9270; J2001; G0480

== ENCOUNTER 2020-03-20 01:33 | Emergency (ER) | payer MEDICAID ==
[2020-03-20 01:48] VITALS: BP 146/82; PULSE 128
[2020-03-20] MEDS ORDERED: Sodium Chloride 0.9% 1,000 ML IV ONE (01:59)
--- NOTE | 2020-03-20 02:04 | EDM.PDOC ---
ED HPI GENERAL MEDICAL PROBLEM - General Chief Complaint: Abdominal Pain Stated Complaint: STOMACH PAINS Time Seen by Provider: 03/20/20 01:50 Source of Information: Reports: Patient History Limitations: Reports: No Limitations - History of Present Illness INITIAL COMMENTS - FREE TEXT/NARRATIVE: This 24 yo female patient reports to the ED with left sided abdominal pain. The patient reports her symptoms started last night. The patient reports she did take Tylenol at 1999 last night with some symptom relief. The patient reports she had difficulties urinating and chills on Tuesday, but was feeling well yesterday until the symptoms started. The patient has a history of kidney stones, UTI's and ovarian cysts. The patient has not attempted to have a clinic visit due to current symptoms due to having to take care of her children. Onset Date: 03/19/20 Onset Time: 18:00 Duration: Constant Location: Reports: Abdomen (left sided) Quality: Reports: Ache, Dull Severity: Moderate Improves with: Reports: Medication Worsens with: Reports: None Context: Reports: Other Associated Symptoms: Reports: Nausea/Vomiting (nausea, but no vomiting) Treatments APN: Reports: Acetaminophen (At 1999 last night) Bilateral Lower Abdomen Pain Score (Numeric/FACES): 5 - Related Data Allergies Allergy/AdvReac Type Severity Reaction Status Date / Time No Known Allergies Allergy Verified 03/20/20 01:44 Home Meds: Home Meds Acetaminophen [Tylenol] 325 mg PO 03/20/20 [History] Past Medical History - Past Health History Medical/Surgical History: Denies Medical/Surgical History HEENT History: Reports: None Cardiovascular History: Reports: None Respiratory History: Reports: None Gastrointestinal History: Reports: None Other Genitourinary History: left fallopian tube removed due to ecptopic 07/08 [employer] History: Reports: Ectopic , , Other (See Below) Other [employer] History: R) Ovarian cyst Musculoskeletal History: Reports: Fracture Neurological History: Reports: None Psychiatric History: Reports: Other (See Below) Other Psychiatric History: self cutting Endocrine/Metabolic History: Reports: None Hematologic History: Reports: None Oncologic (Cancer) History: Reports: None Dermatologic History: Reports: None - Infectious Disease History Infectious Disease History: Reports: None - Past Surgical History Head Surgeries/Procedures: Reports: None Female Surgical History: Reports: Other (See Below) Other Female Surgeries/Procedures: ectopic surgery Other Musculoskeletal Surgeries/Procedures:: L) arm fx. Social & Family History - Family History Family Medical History: Noncontributory - Tobacco Use Smoking Status *Q: Never Smoker Second Hand Smoke Exposure: No - Caffeine Use Caffeine Use: Reports: Soda - Recreational Drug Use Recreational Drug Use: No - Living Situation & Occupation Living situation: Reports: with Family ED ROS GENERAL - Review of Systems Review Of Systems: Comprehensive ROS is negative, except as noted in HPI. ED EXAM, RENAL/ - Physical Exam Exam: See Below Exam Limited By: No Limitations General Appearance: Alert, WD/WN, No Apparent Distress Eye Exam: Bilateral Eye: EOMI, Normal Inspection, PERRL Ears: Normal External Exam, Normal Canal, Hearing Grossly Normal, Normal TMs Nose: Normal Inspection, Normal Mucosa, No Blood Throat/Mouth: Normal Inspection, Normal Lips, Normal Teeth, Normal Gums, Normal Oropharynx, Normal Voice, No Airway Compromise Head: Atraumatic, Normocephalic Neck: Normal Inspection, Supple, Non-Tender, Full Range of Motion Respiratory/Chest: No Respiratory Distress, Lungs Clear, Normal Breath Sounds, No Accessory Muscle Use, Chest Non-Tender Cardiovascular: Normal Peripheral Pulses, Regular Rate, Rhythm, No Edema, No Gallop, No JVD, No Murmur, No Rub GI/Abdominal: Normal Bowel Sounds, No Organomegaly, No Distention, No Abnormal Bruit, No Mass, Pelvis Stable, Tender (lower abdomen (left greater than right)) (Female) Exam: Deferred Rectal (Female) Exam: Deferred Back Exam: Normal Inspection, Full Range of Motion, NT Extremities: Normal Inspection, Normal Range of Motion, Non-Tender, Normal Capillary Refill, No Pedal Edema Neurological: Alert, Oriented, CN II-XII Intact, Normal Cognition, Normal Gait, Normal Reflexes, No Motor/Sensory Deficits Psychiatric: Normal Affect, Normal Mood Skin Exam: Warm, Dry, Intact, Normal Color, No Rash Lymphatic: No Adenopathy Course - Vital Signs Last Recorded V/S: Last Vital Signs Temp 36.8 C 03/20/20 01:45 Pulse 128 H 03/20/20 01:45 Resp 18 03/20/20 01:45 BP 146/82 H 03/20/20 01:45 Pulse Ox 100 03/20/20 01:45 - Orders/Labs/Meds Orders: Active Orders 24 hr Category Date Time Status REFLEX LACTIC ACID YES OR NO [CHEM] Routine Lab 03/20/20 02:28 Received Sodium Chloride 0.9% [Normal Saline] 1,000 ml Med 03/20/20 01:59 Active IV .BOLUS Medication Orders Sodium Chloride (Normal Saline) 1,000 mls @ 999 mls/hr IV .BOLUS ONE Stop: 03/20/20 02:59 Last Admin: 03/20/20 02:09 Dose: 999 mls/hr Documented by: GISELLA Labs: Laboratory Tests 03/20/20 03/20/20 03/20/20 Range/Units 01:49 01:49 01:49 WBC (5.0-10.0) 10^3/uL RBC (4.2-5.4) 10^6/uL Hgb (12.0-16.0) g/dL Hct (37.0-47.0) % MCV (80-100) fL MCH (27.0-34.0) pg MCHC (33.0-35.0) g/dL Plt Count (150-450) 10^3/uL Neut % (Auto) (42.2-75.2) % Lymph % (Auto) (20.5-50.1) % [place] % (Auto) (2-8) % Eos % (Auto) (1.0-3.0) % Baso % (Auto) (0.0-1.0) % Sodium (136-145) mmol/L Potassium (3.5-5.1) mmol/L Chloride (98-107) mmol/L Carbon Dioxide (21-32) mmol/L Anion Gap (7-13) mEq/L BUN (7-18) mg/dL Creatinine (0.55-1.02) mg/dL Est Cr Clr Drug Dosing mL/min Estimated GFR (MDRD) BUN/Creatinine Ratio (No establ ref range) Glucose (74-99) mg/dL Lactic Acid (0.4-2.0) mmol/L Calcium (8.5-10.1) mg/dL Total Bilirubin (0.2-1.0) mg/dL AST (15-37) U/L ALT (14-59) U/L Alkaline Phosphatase (46-116) U/L Total Protein (6.4-8.2) g/dL Albumin (3.4-5.0) g/dL Globulin Albumin/Globulin Ratio Urine Color Yellow (YELLOW) Urine Appearance Clear (CLEAR) Urine pH 6.0 (5.0-9.0) Ur Specific [place] 1.015 (1.005-1.030) Urine Protein Negative (NEGATIVE) Urine Glucose (UA) Negative (NEGATIVE) Urine Ketones Negative (NEGATIVE) Urine Occult Blood Trace-intact H (NEGATIVE) Urine Nitrite Negative (NEGATIVE) Urine Bilirubin Negative (NEGATIVE) Urine Urobilinogen 0.2 (0.2-1.0) mg/dL Ur Leukocyte Esterase Negative (NEGATIVE) Urine RBC 0-5 /HPF Urine WBC 0-5 (0-5/HPF) /HPF Ur Epithelial Cells Few (NOT SEEN) /HPF Amorphous Sediment Few (NOT SEEN) /HPF Urine Bacteria Rare (0-FEW/HPF) /HPF Urine HCG, Qual Negative Urine Opiates Screen Negative (NEGATIVE) Ur Oxycodone Screen Negative (NEGATIVE) Urine Methadone Screen Negative (NEGATIVE) Ur Barbiturates Screen Negative (NEGATIVE) U Tricyclic Antidepress Negative (NEGATIVE) Ur Phencyclidine Scrn Negative (NEGATIVE) Ur Amphetamine Screen Negative (NEGATIVE) U Methamphetamines Scrn Negative (NEGATIVE) Urine MDMA Screen Negative (NEGATIVE) U Benzodiazepines Scrn Negative (NEGATIVE) Urine Cocaine Screen Negative (NEGATIVE) U Marijuana (THC) Screen Negative (NEGATIVE) 03/20/20 03/20/20 03/20/20 Range/Units 01:53 01:53 01:53 WBC 8.0 (5.0-10.0) 10^3/uL RBC 4.16 L (4.2-5.4) 10^6/uL Hgb 12.2 (12.0-16.0) g/dL Hct 34.1 L (37.0-47.0) % MCV 82.0 (80-100) fL MCH 29.3 (27.0-34.0) pg MCHC 35.8 H (33.0-35.0) g/dL Plt Count 200 (150-450) 10^3/uL Neut % (Auto) 40.8 L (42.2-75.2) % Lymph % (Auto) 44.8 (20.5-50.1) % [place] % (Auto) 12.0 H (2-8) % Eos % (Auto) 2.3 (1.0-3.0) % Baso % (Auto) 0.1 (0.0-1.0) % Sodium 141 (136-145) mmol/L Potassium 3.6 (3.5-5.1) mmol/L Chloride 107 (98-107) mmol/L Carbon Dioxide 23 (21-32) mmol/L Anion Gap 14.6 H (7-13) mEq/L BUN 14 (7-18) mg/dL Creatinine 0.59 (0.55-1.02) mg/dL Est Cr Clr Drug Dosing 125.87 mL/min Estimated GFR (MDRD) > 60 BUN/Creatinine Ratio 23.7 (No establ ref range) Glucose 91 (74-99) mg/dL Lactic Acid 2.7 H* (0.4-2.0) mmol/L Calcium 9.6 (8.5-10.1) mg/dL Total Bilirubin 0.4 (0.2-1.0) mg/dL AST 20 (15-37) U/L ALT 45 (14-59) U/L Alkaline Phosphatase 176 H (46-116) U/L Total Protein 6.8 (6.4-8.2) g/dL Albumin 3.4 (3.4-5.0) g/dL Globulin 3.4 Albumin/Globulin Ratio 1.0 Urine Color (YELLOW) Urine Appearance (CLEAR) Urine pH (5.0-9.0) Ur Specific [place] (1.005-1.030) Urine Protein (NEGATIVE) Urine Glucose (UA) (NEGATIVE) Urine Ketones (NEGATIVE) Urine Occult Blood (NEGATIVE) Urine Nitrite (NEGATIVE) Urine Bilirubin (NEGATIVE) Urine Urobilinogen (0.2-1.0) mg/dL Ur Leukocyte Esterase (NEGATIVE) Urine RBC /HPF Urine WBC (0-5/HPF) /HPF Ur Epithelial Cells (NOT SEEN) /HPF Amorphous Sediment (NOT SEEN) /HPF Urine Bacteria (0-FEW/HPF) /HPF Urine HCG, Qual Urine Opiates Screen (NEGATIVE) Ur Oxycodone Screen (NEGATIVE) Urine Methadone Screen (NEGATIVE) Ur Barbiturates Screen (NEGATIVE) U Tricyclic Antidepress (NEGATIVE) Ur Phencyclidine Scrn (NEGATIVE) Ur Amphetamine Screen (NEGATIVE) U Methamphetamines Scrn (NEGATIVE) Urine MDMA Screen (NEGATIVE) U Benzodiazepines Scrn (NEGATIVE) Urine Cocaine Screen (NEGATIVE) U Marijuana (THC) Screen (NEGATIVE) Meds: Medications Generic Name Dose Route Start Last Admin Trade Name Daniel PRN Reason Stop Dose Admin Sodium Chloride 1,000 mls @ 999 mls/hr 03/20/20 01:59 03/20/20 02:09 Normal Saline IV 03/20/20 02:59 999 mls/hr .BOLUS ONE Administration Discontinued Medications Generic Name Dose Route Start Last Admin Trade Name Daniel PRN Reason Stop Dose Admin Ketorolac Tromethamine 30 mg 03/20/20 02:12 03/20/20 02:30 Toradol IVPUSH 03/20/20 02:13 30 mg ONETIME ONE Administration Departure - Departure Time of Disposition: 02:46 Disposition: Home, Self-Care 01 Condition: Fair Clinical Impression: Ovarian cyst Qualifiers: Laterality: right Qualified Code(s): N83.201 - Unspecified ovarian cyst, right side - Discharge Information *PRESCRIPTION DRUG MONITORING PROGRAM REVIEWED*: Not Applicable *COPY OF PRESCRIPTION DRUG MONITORING REPORT IN PATIENT GLENIS: Not Applicable Instructions: Ovarian Cyst, [id number] Forms: ED Department Discharge Care Plan Goals: The patient was advised of the examination, lab and CT results during the visit. The patient was given IV fluids and IV Toradol during the visit. The patient was encouraged to take Tylenol or ibuprofen as directed for temporary symptom relief. If the patient has any additional symptoms or concerns, the patient should visit her primary care facility or return to the emergency department. Sepsis Event Note (ED) - Evaluation Sepsis Screening Result: No Definite Risk - Focused Exam Vital Signs: Vital Signs Temp Pulse Resp BP Pulse Ox 03/20/20 01:45 36.8 C 128 H 18 146/82 H 100 - My Orders Last 24 Hours: My Active Orders 03/20/20 01:59 Sodium Chloride 0.9% [Normal Saline] 1,000 ml IV .BOLUS 03/20/20 02:28 REFLEX LACTIC ACID YES OR NO [CHEM] Routine - Assessment/Plan Last 24 Hours: My Active Orders 03/20/20 01:59 Sodium Chloride 0.9% [Normal Saline] 1,000 ml IV .BOLUS 03/20/20 02:28 REFLEX LACTIC ACID YES OR NO [CHEM] Routine
[2020-03-20] MEDS ORDERED: Ketorolac 30 MG/ML SDV IVPUSH ONE (02:12)
[2020-03-20 02:29] LABS: ANION GAP 14.6 mEq/L (7-13); CHLORIDE,CL 107 mmol/L (98-107); SODIUM,NA 141 mmol/L (136-145)
--- NOTE | 2020-03-20 02:45 | CT ---
PROCEDURE INFORMATION: Exam: CT Abdomen And Pelvis Without Contrast Exam date and time: 03/20/2020 2:23 AM Age: 24 years old Clinical indication: Other: Left flank pain with hematuria TECHNIQUE: Imaging protocol: Computed tomography of the abdomen and pelvis without contrast. Radiation optimization: All CT scans at this facility use at least one of these dose optimization techniques: automated exposure control; mA and/or kV adjustment per patient size (includes targeted exams where dose is matched to clinical indication); or iterative reconstruction. COMPARISON: CT Abdomen Pelvis wo Cont 06/17/2019 1:06 AM FINDINGS: Liver: Normal. No mass. Gallbladder and bile ducts: Normal. No calcified stones. No ductal dilation. Pancreas: Normal. No ductal dilation. Spleen: Normal. No splenomegaly. Adrenals: Normal. No mass. Kidneys and ureters: Right renal cortical scarring. Bilateral nonobstructing nephrolithiasis. No hydronephrosis. Stomach and bowel: Mild bowel wall thickening involving multiple small bowel loops may reflect under distension or enteritis. Correlate clinically. Appendix: No evidence of appendicitis. Intraperitoneal space: Unremarkable. No free air. No significant fluid collection. Vasculature: Unremarkable. No abdominal aortic aneurysm. Lymph nodes: Nonspecific mesenteric adenopathy. Urinary bladder: Distended urinary bladder. Reproductive: 2.5 cm right ovarian cyst can be further assessed with pelvic ultrasound if clinically warranted. Bones/joints: Bilateral L5 pars interarticularis defects. Soft tissues: Unremarkable. IMPRESSION: Mild bowel wall thickening involving multiple small bowel loops may reflect under distension or enteritis. Correlate clinically. 2.5 cm right ovarian cyst can be further assessed with pelvic ultrasound if clinically warranted. Normal appendix. Right renal cortical scarring. Bilateral nonobstructing nephrolithiasis. No hydronephrosis. Nonspecific mesenteric adenopathy.
== END 2020-03-20 02:54 | disposition home or self-care (01) ==
LOC: DL.ED 01:33
DX: N83.201 Unspecified ovarian cyst, right side (principal)
CPT/HCPCS: 36415; 74176; 80053; 80305; 81001; 81025; 83605; 85025; 96361; 96374; 99284; J1885; J7030; 99283

== ENCOUNTER 2020-07-05 16:27 | Emergency (ER) | payer MEDICAID ==
[2020-07-05 16:38] VITALS: BP 122/66; PULSE 101
--- NOTE | 2020-07-05 17:19 | EDM.PDOC ---
<Raj Mcintosh Avelino - Last Filed: 07/05/20 17:41> ED HPI GENERAL MEDICAL PROBLEM - General Chief Complaint: ENT Problem Stated Complaint: LUMP MIDDLE OF THROAT Time Seen by Provider: 07/05/20 17:14 Source of Information: Reports: Patient, RN History Limitations: Reports: No Limitations - History of Present Illness INITIAL COMMENTS - FREE TEXT/NARRATIVE: 25 y/o F c/o Lump in lower throat. Pts eye doc noticed lump in decmeber but pt reported it was not bothering her then. Last pt reports the lump had gotten big enough to impede her swallowing. Pt also reports difficulty sleeping, dizziness, hot and cold flashes, nausea difficulty sleeping and [place] since . Pt states she gets dizzy when she turns her head to the R. Denies fever, cough, sob, cp, abd pn, drugs, etoh, changes i nbowel habits. Onset: Gradual, Other () Duration: Day(s): Location: Reports: Neck Quality: Reports: Ache Severity: Moderate Improves with: Reports: None Worsens with: Reports: Eating, Movement - Related Data Allergies Allergy/AdvReac Type Severity Reaction Status Date / Time No Known Allergies Allergy Verified 03/20/20 01:44 Home Meds: Home Meds Acetaminophen [Tylenol] 325 mg PO Q6HR PRN 03/20/20 [History] Folic Acid 1 mg PO DAILY 07/05/20 [History] Past Medical History - Past Health History Medical/Surgical History: Denies Medical/Surgical History HEENT History: Reports: None Cardiovascular History: Reports: None Respiratory History: Reports: None Gastrointestinal History: Reports: None Other Genitourinary History: left fallopian tube removed due to ecptopic 07/08 [employer] History: Reports: Ectopic , , Other (See Below) Other [employer] History: R) Ovarian cyst Musculoskeletal History: Reports: Fracture Neurological History: Reports: None Psychiatric History: Reports: Other (See Below) Other Psychiatric History: self cutting Endocrine/Metabolic History: Reports: None Hematologic History: Reports: None Oncologic (Cancer) History: Reports: None Dermatologic History: Reports: None - Infectious Disease History Infectious Disease History: Reports: None - Past Surgical History Head Surgeries/Procedures: Reports: None Female Surgical History: Reports: Other (See Below) Other Female Surgeries/Procedures: ectopic surgery Other Musculoskeletal Surgeries/Procedures:: L) arm fx. Social & Family History - Family History Family Medical History: No Pertinent Family History - Caffeine Use Caffeine Use: Reports: Soda - Living Situation & Occupation Living situation: Reports: with Family ED ROS ENT - Review of Systems Review Of Systems: Comprehensive ROS is negative, except as noted in HPI. ED EXAM, ENT - Physical Exam Exam Limited By: No Limitations General Appearance: Alert, WD/WN, No Apparent Distress Eye Exam: Bilateral Eye: PERRL Ears: Normal External Exam, Normal Canal, Hearing Grossly Normal, Normal TMs Nose: Normal Inspection, Normal Mucousa, No Blood Mouth/Throat: Normal Inspection, Normal Gums, Normal Lips, Normal Oropharynx, Normal Teeth Head: Atraumatic, Normocephalic Neck: Other (large lower midline mass ) Cardiovascular: Normal Peripheral Pulses, Regular Rate, Rhythm, No Edema, No Gallop, No JVD, No Murmur, No Rub, Other GI/Abdominal: Normal Bowel Sounds, Soft, Non-Tender, No Organomegaly, No Distention (Female) Exam: Deferred Rectal (Female) Exam: Deferred Back: Normal Inspection Extremities: Normal Inspection, Normal Range of Motion, No Pedal Edema Neurological: Alert, Oriented, CN II-XII Intact, Normal Cognition, Normal Gait, Normal Reflexes, No Motor/Sensory Deficits Psychiatric: Normal Affect, Normal Mood Skin: Warm, Dry, Intact, Normal Color, No Rash #1 Interpretation EKG Date: 07/05/20 Time: 17:44 Rhythm: Other (sinus rhythm) [place]: Normal P-Wave: Present QRS: Normal ST-T: Normal QT: Normal EKG Interpretation Comments: sinus rhythm with diffuse pr depression no ectopy or st changes Departure - Departure Disposition: DC/Tfer to [facility] Clinical Impression: Thyromegaly, Near syncope Dysphagia Qualifiers: Dysphagia type: oropharyngeal phase Qualified Code(s): R13.12 - Dysphagia, oropharyngeal phase - Discharge Information Forms: Interfacility Transfer [facility] Sepsis Event Note (ED) - Evaluation Sepsis Screening Result: No Definite Risk <Zakia Zarate - Last Filed: 07/05/20 19:00> Course - Re-Assessments/Exams Free Text/Narrative Re-Assessment/Exam: 07/05/20 18:23 I personally performed or re-performed the physical examination and medical decision making. I have verified all student documentation or findings, including history, physical exam and/or medical decision making. <HectorJakub - Last Filed: 07/05/20 21:15> ED HPI GENERAL MEDICAL PROBLEM - General Source of Information: Reports: Patient ED ROS ENT - Review of Systems Review Of Systems: Comprehensive ROS is negative, except as noted in HPI. ED EXAM, ENT - Physical Exam Exam: See Below Exam Limited By: No Limitations General Appearance: Alert, WD/WN, Mild Distress, Other (discomfort) Ears: Hearing Grossly Normal Mouth/Throat: Normal Inspection, Throat Pain. No: Pharyngeal Erythema, Throat Swelling, Tongue Swelling, Tonsillar Erythema, Tonsillar Swelling Head: Atraumatic Neck: Carotid Bruit, Limited Range of Motion, Thyromegaly Respiratory/Chest: No Respiratory Distress Cardiovascular: Regular Rate, Rhythm GI/Abdominal: Soft, Non-Tender (Female) Exam: Deferred Rectal (Female) Exam: Deferred Neurological: Alert, Oriented, Normal Cognition, Normal Gait, No Motor/Sensory Deficits Psychiatric: Flat Affect Skin: Warm, Dry, Normal Color Lymphatic: No Adenopathy Course - Vital Signs Last Recorded V/S: Last Vital Signs Temp 36.8 C 07/05/20 16:38 Pulse 101 H 07/05/20 16:38 Resp 16 07/05/20 16:38 BP 122/66 07/05/20 16:38 Pulse Ox 98 07/05/20 16:38 - Orders/Labs/Meds Orders: Active Orders 24 hr Category Date Time Status EKG Documentation Completion [RC] STAT Care 07/05/20 17:22 Active CULTURE STREP A CONFIRMATION [] Stat Lab 07/05/20 16:30 Results STREP SCRN A RAPID W CULT CONF [] Stat Lab 07/05/20 16:30 Results Labs: Laboratory Tests 07/05/20 07/05/20 07/05/20 Range/Units 17:32 17:39 17:39 WBC 6.9 (5.0-10.0) 10^3/uL RBC 4.57 (4.2-5.4) 10^6/uL Hgb 14.1 D (12.0-16.0) g/dL Hct 38.7 (37.0-47.0) % MCV 84.7 (80-100) fL MCH 30.9 (27.0-34.0) pg MCHC 36.4 H (33.0-35.0) g/dL Plt Count 196 (150-450) 10^3/uL Neut % (Auto) 51.5 (42.2-75.2) % Lymph % (Auto) 37.4 (20.5-50.1) % [place] % (Auto) 9.9 H (2-8) % Eos % (Auto) 1.2 (1.0-3.0) % Baso % (Auto) 0.0 (0.0-1.0) % Sodium 136 (136-145) mmol/L Potassium 4.0 (3.5-5.1) mmol/L Chloride 103 (98-107) mmol/L Carbon Dioxide 24 (21-32) mmol/L Anion Gap 13.0 (7-13) mEq/L BUN 12 (7-18) mg/dL Creatinine 0.61 (0.55-1.02) mg/dL Est Cr Clr Drug Dosing TNP Estimated GFR (MDRD) > 60 BUN/Creatinine Ratio 19.7 (No establ ref range) Glucose 100 H (74-99) mg/dL Calcium 9.1 (8.5-10.1) mg/dL Magnesium 1.6 L (1.8-2.4) mg/dL Total Bilirubin 0.5 (0.2-1.0) mg/dL AST 20 (15-37) U/L ALT 38 (14-59) U/L Alkaline Phosphatase 142 H (46-116) U/L C-Reactive Protein 0.4 (0.0-0.9) mg/dL Total Protein 7.7 (6.4-8.2) g/dL Albumin 3.9 (3.4-5.0) g/dL Globulin 3.8 Albumin/Globulin Ratio 1.0 Free T4 3.11 H (0.76-1.46) ng/dL TSH, Ultra Sensitive < 0.01 L (0.36-3.74) uIU/mL Urine HCG, Qual Negative Meds: Medications Discontinued Medications Generic Name Dose Route Start Last Admin Trade Name Freq PRN Reason Stop Dose Admin Fentanyl 50 mcg 07/05/20 19:10 07/05/20 19:16 Sublimaze IVPUSH 07/05/20 19:11 50 mcg ONETIME ONE Administration Fentanyl 50 mcg 07/05/20 20:40 07/05/20 20:45 Sublimaze IVPUSH 07/05/20 20:41 50 mcg ONETIME ONE Administration Iopamidol 100 ml 07/05/20 18:29 07/05/20 18:34 Isovue-300 (61%) IVPUSH 07/05/20 18:30 100 ml ONETIME ONE Administration - Re-Assessments/Exams Free Text/Narrative Re-Assessment/Exam: 07/05/20 21:09 results discussed with pt and case discussed with Dr Bruce @ who kindly accepted pt. Departure - Departure Time of Disposition: 21:13 Condition: Fair Sepsis Event Note (ED) - Focused Exam Vital Signs: Vital Signs Temp Pulse Resp BP Pulse Ox 07/05/20 16:38 36.8 C 101 H 16 122/66 98
[2020-07-05 18:11] LABS: CHLORIDE,CL 103 mmol/L (98-107); SODIUM,NA 136 mmol/L (136-145)
[2020-07-05] MEDS ORDERED: Iopamidol 612 MG/ML 100 ML Bottle IVPUSH ONE (18:29)
--- NOTE | 2020-07-05 19:09 | CT ---
PROCEDURE INFORMATION: Exam: CT Head Without Contrast Exam date and time: 07/05/2020 6:40 PM Age: 25 years old Clinical indication: Other: Headache TECHNIQUE: Imaging protocol: Computed tomography of the head without contrast. Radiation optimization: All CT scans at this facility use at least one of these dose optimization techniques: automated exposure control; mA and/or kV adjustment per patient size (includes targeted exams where dose is matched to clinical indication); or iterative reconstruction. COMPARISON: No relevant prior studies available. FINDINGS: Brain: The aguilar-white differentiation is preserved. No intracranial mass, collection, or hemorrhage is seen. Cerebral ventricles: The ventricular size and sulcal pattern is normal. Bones/joints: The temporal bones are symmetric and unremarkable. No acute fracture. Paranasal sinuses: The visualized paranasal sinuses are normal. Mastoid air cells: Mastoid air cells well aerated. Soft tissues: There is no soft tissue abnormality seen. IMPRESSION: No acute intracranial findings.
[2020-07-05] MEDS ORDERED: fentaNYL 100 MCG/2 ML SDV IVPUSH ONE ×2 (19:10→20:40)
--- NOTE | 2020-07-05 19:13 | CT ---
PROCEDURE INFORMATION: Exam: CT Neck With Contrast Exam date and time: 07/05/2020 6:32 PM Age: 25 years old Clinical indication: Other: Lump on right base of neck, difficulty swallowing; Additional info: Goiter TECHNIQUE: Imaging protocol: Computed tomography images of the neck with intravenous contrast. Radiation optimization: All CT scans at this facility use at least one of these dose optimization techniques: automated exposure control; mA and/or kV adjustment per patient size (includes targeted exams where dose is matched to clinical indication); or iterative reconstruction. Contrast material: [id number]; Contrast volume: 75 ml; Contrast route: INTRAVENOUS (IV); COMPARISON: No relevant prior studies available. FINDINGS: Nasopharynx: The nasopharyngeal tissues are appropriate. The parapharyngeal space is clear. Oropharynx: The base of the tongue is intact. The tonsillar and peritonsillar regions are normal. The soft palate is intact. Hypopharynx: The hypopharyngeal structures including the piriform sinuses are intact. Larynx: The vallecula and epiglottis are normal. Vocal folds unremarkable. Retropharyngeal space: No retropharyngeal mass or collection is identified. Submandibular/Parotid glands: The parotid glands are symmetric and unremarkable. No parotid duct calculi are seen. The submandibular glands are symmetric and unremarkable. No submandibular duct calculi are seen. Thyroid: There is diffuse thyromegaly . The right lobe measures 7.6 x 3.9 x 3.3 cm. The left lobe measures 7.6 x 4.5 x 2.9 cm. No discrete nodules are identified. Lymph nodes: There is no evidence of lymphadenopathy. There is scattered prominent nodes all of which have normal central fatty alyson. Trachea: The trachea is normal. Lungs: The visualized portions of the lung apices are normal. Bones/joints: No acute bony findings are identified. Soft tissues: There is no soft tissue abnormality seen. IMPRESSION: 1. Severe diffuse thyromegaly without discrete nodules. Correlate with thyroid function studies. Consider ultrasound. 2. The study is otherwise unremarkable.
== END 2020-07-05 21:26 ==
LOC: DL.ED 16:27
DX: R13.12 Dysphagia, oropharyngeal phase (principal); E01.0 Iodine-deficiency related diffuse (endemic) goiter; R55 Syncope and collapse
CPT/HCPCS: 36415; 70450; 70491; 80053; 81025; 83735; 84439; 84443; 85025; 86140; 87081; 87430; 93005; 96374; 96376; 99285; J3010; Q9967; 93010; 99284

== ENCOUNTER 2020-07-12 18:29 | Emergency (ER) | payer MEDICAID ==
[2020-07-12 18:56] VITALS: BP 124/79; PULSE 78
== END 2020-07-12 18:55 | disposition left against medical advice (07) ==
LOC: DL.ED 18:29
DX: Z53.21 Procedure and treatment not carried out due to patient leaving prior to being seen by health care provider (principal)

== ENCOUNTER 2020-11-01 02:12 | Emergency (ER) | payer MEDICAID ==
[2020-11-01 02:48] VITALS: BP 153/81; PULSE 130
[2020-11-01 03:55] LABS: ANION GAP 19.8 mEq/L (7-13); CHLORIDE,CL 103 mmol/L (98-107); SODIUM,NA 142 mmol/L (136-145)
--- NOTE | 2020-11-01 04:04 | EDM.PDOCBH ---
ED HPI GENERAL MEDICAL PROBLEM - General Chief Complaint: Behavioral/Psych Stated Complaint: THOUGHTS OF HARMING HERSELF Time Seen by Provider: 11/01/20 02:49 Source of Information: Reports: Patient, RN History Limitations: Reports: No Limitations - History of Present Illness INITIAL COMMENTS - FREE TEXT/NARRATIVE: 25-year-old female who presents to the ER with complaints of suicidal ideation that has been ongoing for a couple of years. Patient reports her grand mother a couple of years ago and around this time of the year, suicidal ideations have worsened. She reports a previous suicide attempt one year by overdosing on pills. She also admits that one week ago, she took a couple of pills from a friend to feel better but did not know which medications that were. She also has superficial lacerations on her left wrist that she cut 4 days ago with no active bleeding at this time. She also admits to drinking alcohol 1 day. She denies anysuicidal or homicidal plan. She denies any fever, chills, shortness of breath, chest pain, palpitations, abdominal or urinary problems. - Related Data Allergies Allergy/AdvReac Type Severity Reaction Status Date / Time No Known Allergies Allergy Verified 11/01/20 02:36 Home Meds: Home Meds Acetaminophen [Tylenol] 325 mg PO Q6HR PRN 03/20/20 [History] Folic Acid 1 mg PO DAILY 07/05/20 [History] Past Medical History - Past Health History Medical/Surgical History: Denies Medical/Surgical History HEENT History: Reports: None Cardiovascular History: Reports: None Respiratory History: Reports: None Gastrointestinal History: Reports: None Other Genitourinary History: left fallopian tube removed due to ecptopic 07/08 RN FLOAT History: Reports: Ectopic , , Other (See Below) Other RN FLOAT History: R) Ovarian cyst Musculoskeletal History: Reports: Fracture Neurological History: Reports: None Psychiatric History: Reports: Depression, Suicide Attempt, Suicidal Ideation Other Psychiatric History: self cutting Endocrine/Metabolic History: Reports: Other (See Below) Other Endocrine/Metabolic History: Pt states she has thyroid problem Hematologic History: Reports: None Oncologic (Cancer) History: Reports: None Dermatologic History: Reports: None - Infectious Disease History Infectious Disease History: Reports: None - Past Surgical History Head Surgeries/Procedures: Reports: None Female Surgical History: Reports: Other (See Below) Other Female Surgeries/Procedures: ectopic surgery Other Musculoskeletal Surgeries/Procedures:: L) arm fx. Social & Family History - Family History Family Medical History: No Pertinent Family History - Tobacco Use Tobacco Use Status *Q: Current Some Day Tobacco User Years of Tobacco use: 8 Packs/Tins Daily: 0.1 - Caffeine Use Caffeine Use: Reports: None - Alcohol Use Date of Last Drink: 10/31/20 Time of Last Drink: 19:00 - Recreational Drug Use Recreational Drug Use: Yes Recreational Drug Type: Reports: Other (see below) Other Recreational Drug Type: Pt states she took some pills a couple days ago, does not know what the pills were. - Living Situation & Occupation Living situation: Reports: with Family ED ROS GENERAL - Review of Systems Review Of Systems: Comprehensive ROS is negative, except as noted in HPI. ED EXAM, BEHAVIORAL HEALTH - Physical Exam Exam: See Below Exam Limited By: No Limitations General Appearance: Alert, WD/WN, No Apparent Distress Eye Exam: Bilateral Eye: PERRL Ears: Normal External Exam, Normal Canal, Hearing Grossly Normal Nose: Normal Inspection, Normal Mucosa Throat/Mouth: Normal Inspection, Normal Lips, Normal Teeth Head: Atraumatic Neck: Normal Inspection, Supple, Non-Tender Respiratory/Chest: No Respiratory Distress, Lungs Clear, Normal Breath Sounds, No Accessory Muscle Use, Chest Non-Tender Cardiovascular: Normal Peripheral Pulses, Regular Rate, Rhythm, No Edema, Irregularly Irregular GI/Abdominal: Normal Bowel Sounds, Non-Tender (Female) Exam: Deferred Rectal (Female) Exam: Deferred Back Exam: Normal Inspection, Full Range of Motion Extremities: Normal Inspection, Normal Range of Motion, Non-Tender, No Pedal Edema, Normal Capillary Refill Neurological: Alert, CN II-XII Intact, Normal Gait, Normal Reflexes Psychiatric: Alert, Normal Cognition, Flat Affect, Homicidal Thoughts, Suicidal Thoughts, Grandiose Thoughts. No: Suicidal Plan, Tangential Thoughts, Auditory Hallucinations, Visual Hallucinations COURSE, BEHAVIORAL HEALTH COMP - Course Vital Signs: Last Vital Signs Temp 97.6 F 11/01/20 02:37 Pulse 130 H 11/01/20 02:37 Resp 18 11/01/20 02:37 BP 153/81 H 11/01/20 02:37 Pulse Ox 100 11/01/20 02:37 Orders, Labs, Meds: Laboratory Tests 11/01/20 11/01/2011/01/21 Range/Units 03:30 03:30 03:30 WBC 9.9 (5.0-10.0) 10^3/uL RBC 4.78 (4.2-5.4) 10^6/uL Hgb 14.3 (12.0-16.0) g/dL Hct 39.4 (37.0-47.0) % MCV 82.4 (80-100) fL MCH 29.9 (27.0-34.0) pg MCHC 36.3 H (33.0-35.0) g/dL Plt Count 236 (150-450) 10^3/uL Neut % (Auto) 62.8 (42.2-75.2) % Lymph % (Auto) 31.6 (20.5-50.1) % [place] % (Auto) 5.3 (2-8) % Eos % (Auto) 0.2 L (1.0-3.0) % Baso % (Auto) 0.1 (0.0-1.0) % Sodium 142 (136-145) mmol/L Potassium 2.8 L (3.5-5.1) mmol/L Chloride 103 (98-107) mmol/L Carbon Dioxide 22 (21-32) mmol/L Anion Gap 19.8 H (7-13) mEq/L BUN 5 L (7-18) mg/dL Creatinine 0.55 (0.55-1.02) mg/dL Est Cr Clr Drug Dosing 139.48 mL/min Estimated GFR (MDRD) > 60 BUN/Creatinine Ratio 9.1 (No establ ref range) Glucose 109 H (70-99) mg/dL Calcium 8.6 (8.5-10.1) mg/dL Total Bilirubin 0.5 (0.2-1.0) mg/dL AST 22 (15-37) U/L ALT 36 (14-59) U/L Alkaline Phosphatase 140 H (46-116) U/L Total Protein 7.8 (6.4-8.2) g/dL Albumin 4.0 (3.4-5.0) g/dL Globulin 3.8 Albumin/Globulin Ratio 1.1 TSH, Ultra Sensitive < 0.01 L (0.36-3.74) uIU/mL Urine Color (YELLOW) Urine Appearance (CLEAR) Urine pH (5.0-9.0) Ur Specific [place] (1.005-1.030) Urine Protein (NEGATIVE) Urine Glucose (UA) (NEGATIVE) Urine Ketones (NEGATIVE) Urine Occult Blood (NEGATIVE) Urine Nitrite (NEGATIVE) Urine Bilirubin (NEGATIVE) Urine Urobilinogen (0.2-1.0) mg/dL Ur Leukocyte Esterase (NEGATIVE) Urine HCG, Qual Urine Opiates Screen (NEGATIVE) Ur Oxycodone Screen (NEGATIVE) Urine Methadone Screen (NEGATIVE) Ur Barbiturates Screen (NEGATIVE) U Tricyclic Antidepress (NEGATIVE) Ur Phencyclidine Scrn (NEGATIVE) Ur Amphetamine Screen (NEGATIVE) U Methamphetamines Scrn (NEGATIVE) Urine MDMA Screen (NEGATIVE) U Benzodiazepines Scrn (NEGATIVE) Urine Cocaine Screen (NEGATIVE) U Marijuana (THC) Screen (NEGATIVE) Ethyl Alcohol 96 (0) mg/dL 11/01/20 11/01/20 11/01/20 Range/Units 04:10 04:10 04:10 WBC (5.0-10.0) 10^3/uL RBC (4.2-5.4) 10^6/uL Hgb (12.0-16.0) g/dL Hct (37.0-47.0) % MCV (80-100) fL MCH (27.0-34.0) pg MCHC (33.0-35.0) g/dL Plt Count (150-450) 10^3/uL Neut % (Auto) (42.2-75.2) % Lymph % (Auto) (20.5-50.1) % [place] % (Auto) (2-8) % Eos % (Auto) (1.0-3.0) % Baso % (Auto) (0.0-1.0) % Sodium (136-145) mmol/L Potassium (3.5-5.1) mmol/L Chloride (98-107) mmol/L Carbon Dioxide (21-32) mmol/L Anion Gap (7-13) mEq/L BUN (7-18) mg/dL Creatinine (0.55-1.02) mg/dL Est Cr Clr Drug Dosing mL/min Estimated GFR (MDRD) BUN/Creatinine Ratio (No establ ref range) Glucose (70-99) mg/dL Calcium (8.5-10.1) mg/dL Total Bilirubin (0.2-1.0) mg/dL AST (15-37) U/L ALT (14-59) U/L Alkaline Phosphatase (46-116) U/L Total Protein (6.4-8.2) g/dL Albumin (3.4-5.0) g/dL Globulin Albumin/Globulin Ratio TSH, Ultra Sensitive (0.36-3.74) uIU/mL Urine Color Yellow (YELLOW) Urine Appearance Clear (CLEAR) Urine pH 6.0 (5.0-9.0) Ur Specific [place]ard 1.015 (1.005-1.030) Urine Protein Negative (NEGATIVE) Urine Glucose (UA) Negative (NEGATIVE) Urine Ketones Negative (NEGATIVE) Urine Occult Blood Negative (NEGATIVE) Urine Nitrite Negative (NEGATIVE) Urine Bilirubin Negative (NEGATIVE) Urine Urobilinogen 0.2 (0.2-1.0) mg/dL Ur Leukocyte Esterase Negative (NEGATIVE) Urine HCG, Qual Negative Urine Opiates Screen Negative (NEGATIVE) Ur Oxycodone Screen Negative (NEGATIVE) Urine Methadone Screen Negative (NEGATIVE) Ur Barbiturates Screen Negative (NEGATIVE) U Tricyclic Antidepress Negative (NEGATIVE) Ur Phencyclidine Scrn Negative (NEGATIVE) Ur Amphetamine Screen Negative (NEGATIVE) U Methamphetamines Scrn Negative (NEGATIVE) Urine MDMA Screen Negative (NEGATIVE) U Benzodiazepines Scrn Negative (NEGATIVE) Urine Cocaine Screen Negative (NEGATIVE) U Marijuana (THC) Screen Negative (NEGATIVE) Ethyl Alcohol (0) mg/dL Re-Assessment/Re-Exam: Exam findings and lab results with patient. Crisis ream member were notified and a member of their team evaluated the patient in the ER. A safety plan was made and patient will follow up with the appointment made. patient was in agreement to plan. Departure - Departure Time of Disposition: 05:09 Disposition: Home, Self-Care 01 Clinical Impression: Suicidal ideation, Depressive disorder, Grief reaction - Discharge Information Instructions: Suicidal Feelings: How to Help Yourself, Complicated Grief, Self- Harming Behavior Information Forms: ED Department Discharge Additional Instructions: Encourage patient to follow-up per correctional case manager recommendation on outpatient services. Patient verbalized understanding. Sepsis Event Note (ED) - Evaluation Sepsis Screening Result: No Definite Risk
== END 2020-11-01 05:16 | disposition home or self-care (01) ==
LOC: DL.ED 02:12
DX: F32.9 Major depressive disorder, single episode, unspecified (principal); F43.20 Adjustment disorder, unspecified; Z72.0 Tobacco use
CPT/HCPCS: 36415; 80053; 80305-QW; 80307; 81003; 81025; 84443; 85025; 99283; 99284

== ENCOUNTER 2021-02-22 23:10 | Emergency (ER) | payer MEDICAID ==
[2021-02-23 00:25] VITALS: BP 128/82; PULSE 113
--- NOTE | 2021-02-23 00:46 | EDM.PDOC ---
ED HPI GENERAL MEDICAL PROBLEM - General Chief Complaint: ENT Problem Stated Complaint: THROAT HURTS Time Seen by Provider: 02/23/21 00:30 Source of Information: Reports: Patient History Limitations: Reports: No Limitations - History of Present Illness INITIAL COMMENTS - FREE TEXT/NARRATIVE: Sore throat since last efraín, No fever, some radiation to left ear. No cough. No GI sx. Treatments TROUBLE CLERK: Reports: Acetaminophen Throat Pain Score (Numeric/FACES): 5 - Related Data Allergies Allergy/AdvReac Type Severity Reaction Status Date / Time No Known Allergies Allergy Verified 02/23/21 00:30 Home Meds: Home Meds Acetaminophen [Tylenol] 325 mg PO Q6HR PRN 03/20/20 [History] Methimazole [Tapazole] 10 mg PO DAILY 02/23/21 [History] Past Medical History - Past Health History Medical/Surgical History: Denies Medical/Surgical History HEENT History: Reports: None Cardiovascular History: Reports: None Respiratory History: Reports: None Gastrointestinal History: Reports: None Genitourinary History: Reports: UTI, Recurrent Other Genitourinary History: left fallopian tube removed due to ecptopic 07/08 SHERIFF SERGEANT History: Reports: Ectopic , , Other (See Below) Other SHERIFF SERGEANT History: R) Ovarian cyst Musculoskeletal History: Reports: Fracture Neurological History: Reports: None Psychiatric History: Reports: Depression, Suicide Attempt, Suicidal Ideation Other Psychiatric History: self cutting Endocrine/Metabolic History: Reports: Other (See Below) Other Endocrine/Metabolic History: Pt states she has thyroid problem Hematologic History: Reports: None Oncologic (Cancer) History: Reports: None Dermatologic History: Reports: None - Infectious Disease History Infectious Disease History: Reports: None - Past Surgical History Head Surgeries/Procedures: Reports: None Female Surgical History: Reports: Other (See Below) Other Female Surgeries/Procedures: ectopic surgery Other Musculoskeletal Surgeries/Procedures:: L) arm fx. Social & Family History - Family History Family Medical History: No Pertinent Family History - Tobacco Use Tobacco Use Status *Q: Current Some Day Tobacco User Years of Tobacco use: 5 Packs/Tins Daily: 0.1 - Caffeine Use Caffeine Use: Reports: None - Recreational Drug Use Recreational Drug Use: No - Living Situation & Occupation Living situation: Reports: with Family ED ROS ENT - Review of Systems Review Of Systems: Comprehensive ROS is negative, except as noted in HPI. ED EXAM, ENT - Physical Exam Exam: See Below Exam Limited By: No Limitations General Appearance: Alert, Mild Distress Eye Exam: Bilateral Eye: EOMI, PERRL Ears: Normal External Exam Nose: Normal Inspection, Normal Mucousa Mouth/Throat: Normal Inspection, Normal Gums, Normal Oropharynx, Normal Teeth. No: Throat Swelling, Tongue Swelling, Tonsillar Erythema, Tonsillar Exudates, Tonsillar Swelling, Uvular Deviation, Uvular Edema Head: Atraumatic, Normocephalic Neck: Normal Inspection Respiratory/Chest: No Respiratory Distress, Lungs Clear Cardiovascular: Normal Peripheral Pulses, Regular Rate, Rhythm GI/Abdominal: Normal Bowel Sounds, Soft Course - Vital Signs Last Recorded V/S: Last Vital Signs Temp 97.3 F 02/23/21 00:24 Pulse 113 H 02/23/21 00:24 Resp 16 02/23/21 00:24 BP 128/82 02/23/21 00:24 Pulse Ox 98 02/23/21 00:24 Departure - Departure Time of Disposition: 00:44 Disposition: Home, Self-Care 01 Condition: Good Clinical Impression: Pharyngitis Qualifiers: Pharyngitis/tonsillitis etiology: unspecified etiology Qualified Code(s): J02.9 - Acute pharyngitis, unspecified - Discharge Information *PRESCRIPTION DRUG MONITORING PROGRAM REVIEWED*: No *COPY OF PRESCRIPTION DRUG MONITORING REPORT IN PATIENT GLENIS: No Instructions: Pharyngitis, [id number] Referrals: Chandler Rivas [Primary Care Provider] - Forms: ED Department Discharge Additional Instructions: increase fluids alternate tylenol and ibuprofen every 4 hours as needed for discomfort clinic follow up 3-4 days if not improving salt water gargles, chloraseptic throat spray as needed Sepsis Event Note (ED) - Evaluation Sepsis Screening Result: Possible Sepsis Risk
== END 2021-02-23 00:58 | disposition home or self-care (01) ==
LOC: DL.ED 23:10
DX: J02.9 Acute pharyngitis, unspecified (principal); Z72.0 Tobacco use
CPT/HCPCS: 87081; 87430; 99282; 99283

== ENCOUNTER 2021-04-15 21:03 | Emergency (ER) | payer MEDICAID ==
[2021-04-15 22:06] LABS: AMPHETAMINES,URINE NEGATIVE (NEGATIVE); BARBITURATES,URINE NEGATIVE (NEGATIVE); BENZODIAZEPINE,URINE NEGATIVE (NEGATIVE); MDMA (ECSTASY), URINE NEGATIVE (NEGATIVE); METHADONE,URINE NEGATIVE (NEGATIVE); METHAMPHETAMINES,URINE NEGATIVE (NEGATIVE); OPIATES,URINE NEGATIVE (NEGATIVE); OXYCODONE,URINE POSITIVE (NEGATIVE); PHENCYCLIDINE,URINE NEGATIVE (NEGATIVE); TCA,URINE NEGATIVE (NEGATIVE)
--- NOTE | 2021-04-15 22:20 | EDM.PDOC ---
<Stacey Garcia - Last Filed: 04/15/21 22:14> ED HPI GENERAL MEDICAL PROBLEM - General Chief Complaint: Abdominal Pain Stated Complaint: LOWER STOMACH, BOTTOM OF BACK PAIN Time Seen by Provider: 04/15/21 21:30 Source of Information: Reports: Patient History Limitations: Reports: No Limitations - History of Present Illness INITIAL COMMENTS - FREE TEXT/NARRATIVE: The patient reports a several week history of lower back and abdominal pain, irregular menstrual bleeding, constipation and nausea. She reports her LMP ended on 03/26/2021. After that she report she has had irregular menstrual bleeding occurring 2 days on and 2 days off for the last few weeks of light flow. She reports bilateral low back pain with radiation to her bilateral lower abdomen. Her low abdomen pain is "cramping" in nature. She denies radiation otherwise. No alleviating and relieving factors. Severity is 5/10 at its worst. She reports last week she had constipation and then diarrhea when she subsequently took some OTC constipation medicines. She reports intermittent nausea. She denies fevers, chills, vomiting, dysuria, hematuria. She reports she is currently sexually a ctive. No new partners recently. No history of STIs. She does not use contraception such as OCP or condoms. She does not believe she could be . Onset: Unknown/Unsure Duration: Week(s): Location: Reports: Abdomen, Back Quality: Reports: Ache Severity: Mild Improves with: Reports: None Bilateral Lower Abdomen Pain Score (Numeric/FACES): 6 - Related Data Allergies Allergy/AdvReac Type Severity Reaction Status Date / Time No Known Allergies Allergy Verified 04/15/21 21:35 Home Meds: Home Meds Methimazole [Tapazole] 10 mg PO DAILY 02/23/21 [History] Past Medical History - Past Health History Medical/Surgical History: Denies Medical/Surgical History HEENT History: Reports: None Cardiovascular History: Reports: None Respiratory History: Reports: None Gastrointestinal History: Reports: None Genitourinary History: Reports: UTI, Recurrent Other Genitourinary History: left fallopian tube removed due to ecptopic p regnancy 07/08 COVER CREASER History: Reports: Ectopic , , Other (See Below) Other COVER CREASER History: R) Ovarian cyst Musculoskeletal History: Reports: Fracture Neurological History: Reports: None Psychiatric History: Reports: Depression, Suicide Attempt, Suicidal Ideation Other Psychiatric History: self cutting Endocrine/Metabolic History: Reports: Other (See Below) Other Endocrine/Metabolic History: Pt states she has thyroid problem (over active) Hematologic History: Reports: None Oncologic (Cancer) History: Reports: None Dermatologic History: Reports: None - Infectious Disease History Infectious Disease History: Reports: None - Past Surgical History Head Surgeries/Procedures: Reports: None Female Surgical History: Reports: Other (See Below) Other Female Surgeries/Procedures: ectopic surgery Other Musculoskeletal Surgeries/Procedures:: L) arm fx. Social & Family History - Family History Family Medical History: No Pertinent Family History - Tobacco Use Tobacco Use Status *Q: Current Some Day Tobacco User Years of Tobacco use: 1 Packs/Tins Daily: 0.1 Second Hand Smoke Exposure: Yes - Caffeine Use Caffeine Use: Reports: None - Recreational Drug Use Recreational Drug Use: No - Living Situation & Occupation Living situation: Reports: with Family ED ROS GENERAL - Review of Systems Review Of Systems: See Below Constitutional: Denies: Fever, Chills, Malaise, Fatigue, Night Sweats, Diaphoresis, Decreased Appetite, Weight Loss, Weight Gain HEENT: Reports: No Symptoms Respiratory: Reports: No Symptoms Cardiovascular: Reports: No Symptoms Endocrine: Reports: No Symptoms GI/Abdominal: Reports: Abdominal Pain Musculoskeletal: Reports: Back Pain (Bilateral lower back pain as well as bilateral lower abdominal cramping pain) Skin: Reports: No Symptoms Neurological: Reports: No Symptoms Psychiatric: Reports: No Symptoms Hematologic/Lymphatic: Reports: No Symptoms Immunologic: Reports: No Symptoms ED EXAM, GI/ABD - Physical Exam Exam: See Below Exam Limited By: No Limitations General Appearance: Alert, No Apparent Distress Ears: Normal External Exam, Normal Canal, Hearing Grossly Normal, Normal TMs Nose: Normal Inspection, Normal Mucosa, No Blood Throat/Mouth: Normal Inspection, Normal Lips, Normal Teeth, Normal Gums, Normal Oropharynx, Normal Voice, No Airway Compromise Head: Atraumatic, Normocephalic Neck: Normal Inspection, Supple, Non-Tender, Full Range of Motion Respiratory/Chest: No Respiratory Distress, Lungs Clear, Normal Breath Sounds, No Accessory Muscle Use, Chest Non-Tender Cardiovascular: Normal Peripheral Pulses, Regular Rate, Rhythm, No Edema, No Gallop, No JVD, No Murmur, No Rub GI/Abdominal Exam: Normal Bowel Sounds, Soft, Non-Tender, No Organomegaly, No Distention, No Mass (Female) Exam: Normal External Exam, Normal Speculum Exam (Small amount of bleeding from cervical os), Normal Bimanual Exam. No: Adnexal Mass, Adnexal Tenderness, Cervical Dilatation, Cervical Discharge, Cervix Motion Tenderness, Products of Conception, Uterine Tenderness Back Exam: Normal Inspection, Full Range of Motion. No: CVA Tenderness (L), CVA Tenderness (R) Extremities: Normal Inspection, Normal Range of Motion, Non-Tender, Normal Capillary Refill, No Pedal Edema Neurological: Alert, Oriented, CN II-XII Intact, Normal Cognition, Normal Gait, No Motor/Sensory Deficits Psychiatric: Normal Affect, Normal Mood Skin Exam: Warm, Dry, Intact, Normal Color, No Rash Lymphatic: No Adenopathy Departure - Departure Time of Disposition: 23:05 Disposition: Home, Self-Care 01 Condition: Good Clinical Impression: Dysmenorrhea, unspecified - Discharge Information *PRESCRIPTION DRUG MONITORING PROGRAM REVIEWED*: Not Applicable *COPY OF PRESCRIPTION DRUG MONITORING REPORT IN PATIENT GLENIS: Not Applicable Instructions: Abnormal Uterine Bleeding, [id number] Forms: ED Department Discharge Additional Instructions: Recommend Tylenol and/or ibuprofen as needed for pain. Safe sex practices to prevent STIs. Follow-up with Primary Care team in 7 days or sooner as needed. <Katelynn Hilario - Last Filed: 04/18/21 06:59> Course - Vital Signs Last Recorded V/S: Last Vital Signs Temp 99.1 F 04/15/21 23:12 Pulse 78 04/15/21 23:12 Resp 16 04/15/21 23:12 BP 131/83 04/15/21 23:12 Pulse Ox 97 04/15/21 23:12 - Orders/Labs/Meds Labs: Laboratory Tests 04/15/21 04/15/21 04/15/21 Range/Units 21:44 21:44 21:44 WBC (5.0-10.0) 10^3/uL RBC (4.2-5.4) 10^6/uL Hgb (12.0-16.0) g/dL Hct (37.0-47.0) % MCV (80-100) fL MCH (27.0-34.0) pg MCHC (33.0-35.0) g/dL Plt Count (150-450) 10^3/uL Neut % (Auto) (42.2-75.2) % Lymph % (Auto) (20.5-50.1) % [place] % (Auto) (2-8) % Eos % (Auto) (1.0-3.0) % Baso % (Auto) (0.0-1.0) % Sodium (136-145) mmol/L Potassium (3.5-5.1) mmol/L Chloride (98-107) mmol/L Carbon Dioxide (21-32) mmol/L Anion Gap (7-13) mEq/L BUN (7-18) mg/dL Creatinine (0.55-1.02) mg/dL Est Cr Clr Drug Dosing mL/min Estimated GFR (MDRD) BUN/Creatinine Ratio (No establ ref range) Glucose (70-99) mg/dL Calcium (8.5-10.1) mg/dL Total Bilirubin (0.2-1.0) mg/dL AST (15-37) U/L ALT (14-59) U/L Alkaline Phosphatase (46-116) U/L Total Protein (6.4-8.2) g/dL Albumin (3.4-5.0) g/dL Globulin Albumin/Globulin Ratio Urine Color Yellow (YELLOW) Urine Appearance Cloudy (CLEAR) Urine pH 6.0 (5.0-9.0) Ur Specific [place] >= 1.030 (1.005-1.030) Urine Protein Negative (NEGATIVE) Urine Glucose (UA) Negative (NEGATIVE) Urine Ketones Negative (NEGATIVE) Urine Occult Blood Large H (NEGATIVE) Urine Nitrite Negative (NEGATIVE) Urine Bilirubin Negative (NEGATIVE) Urine Urobilinogen 1.0 (0.2-1.0) mg/dL Ur Leukocyte Esterase Trace H (NEGATIVE) Urine RBC 50-75 H (0-5) /HPF Urine WBC 10-20 H (0-5/HPF) /HPF Ur Epithelial Cells Many H (NOT SEEN) /HPF Urine Bacteria Few (0-FEW/HPF) /HPF Urine Mucus Few H (NOT SEEN) /LPF Urine HCG, Qual Negative Urine Opiates Screen Negative (NEGATIVE) Ur Oxycodone Screen Positive H (NEGATIVE) Urine Methadone Screen Negative (NEGATIVE) Ur Barbiturates Screen Negative (NEGATIVE) U Tricyclic Antidepress Negative (NEGATIVE) Ur Phencyclidine Scrn Negative (NEGATIVE) Ur Amphetamine Screen Negative (NEGATIVE) U Methamphetamines Scrn Negative (NEGATIVE) Urine MDMA Screen Negative (NEGATIVE) U Benzodiazepines Scrn Negative (NEGATIVE) Urine Cocaine Screen Negative (NEGATIVE) U Marijuana (THC) Screen Negative (NEGATIVE) Chlamydia/GC Source C.trachomatis RNA (TMA) (Negative) N.gonorrhoeae RNA (TMA) (Negative) 04/15/21 04/15/21 04/15/21 Range/Units 21:44 22:25 22:25 WBC 6.3 (5.0-10.0) 10^3/uL RBC 4.15 L (4.2-5.4) 10^6/uL Hgb 12.4 D (12.0-16.0) g/dL Hct 35.2 L (37.0-47.0) % MCV 84.8 (80-100) fL MCH 29.9 (27.0-34.0) pg MCHC 35.2 H (33.0-35.0) g/dL Plt Count 207 (150-450) 10^3/uL Neut % (Auto) 50.0 (42.2-75.2) % Lymph % (Auto) 40.1 (20.5-50.1) % [place] % (Auto) 8.4 H (2-8) % Eos % (Auto) 1.3 (1.0-3.0) % Baso % (Auto) 0.2 (0.0-1.0) % Sodium 144 (136-145) mmol/L Potassium 3.8 (3.5-5.1) mmol/L Chloride 108 H (98-107) mmol/L Carbon Dioxide 25 (21-32) mmol/L Anion Gap 14.8 H (7-13) mEq/L BUN 9 (7-18) mg/dL Creatinine 0.57 (0.55-1.02) mg/dL Est Cr Clr Drug Dosing 129.15 mL/min Estimated GFR (MDRD) > 60 BUN/Creatinine Ratio 15.8 (No establ ref range) Glucose 106 H (70-99) mg/dL Calcium 8.6 (8.5-10.1) mg/dL Total Bilirubin 0.3 (0.2-1.0) mg/dL AST 15 (15-37) U/L ALT 26 (14-59) U/L Alkaline Phosphatase 155 H (46-116) U/L Total Protein 6.5 (6.4-8.2) g/dL Albumin 3.3 L (3.4-5.0) g/dL Globulin 3.2 Albumin/Globulin Ratio 1.03 Urine Color (YELLOW) Urine Appearance (CLEAR) Urine pH (5.0-9.0) Ur Specific [place] (1.005-1.030) Urine Protein (NEGATIVE) Urine Glucose (UA) (NEGATIVE) Urine Ketones (NEGATIVE) Urine Occult Blood (NEGATIVE) Urine Nitrite (NEGATIVE) Urine Bilirubin (NEGATIVE) Urine Urobilinogen (0.2-1.0) mg/dL Ur Leukocyte Esterase (NEGATIVE) Urine RBC (0-5) /HPF Urine WBC (0-5/HPF) /HPF Ur Epithelial Cells (NOT SEEN) /HPF Urine Bacteria (0-FEW/HPF) /HPF Urine Mucus (NOT SEEN) /LPF Urine HCG, Qual Urine Opiates Screen (NEGATIVE) Ur Oxycodone Screen (NEGATIVE) Urine Methadone Screen (NEGATIVE) Ur Barbiturates Screen (NEGATIVE) U Tricyclic Antidepress (NEGATIVE) Ur Phencyclidine Scrn (NEGATIVE) Ur Amphetamine Screen (NEGATIVE) U Methamphetamines Scrn (NEGATIVE) Urine MDMA Screen (NEGATIVE) U Benzodiazepines Scrn (NEGATIVE) Urine Cocaine Screen (NEGATIVE) U Marijuana (THC) Screen (NEGATIVE) Chlamydia/GC Source Urine C.trachomatis RNA (TMA) Positive H (Negative) N.gonorrhoeae RNA (TMA) Negative (Negative) Attestation - Resident - Attestation Statement Attestation Statement: I saw and evaluated the patient. Discussed with resident and agree with residents findings and plan as documented in the residents note.
[2021-04-15 22:51] LABS: ANION GAP 14.8 mEq/L (7-13); CHLORIDE,CL 108 mmol/L (98-107); SODIUM,NA 144 mmol/L (136-145)
[2021-04-15 23:13] VITALS: BP 131/83; PULSE 78
[2021-04-17 11:47] LABS: C.TRACHOMATIS BY TMA Positive (Negative); N.GONORRHOEAE BY TMA Negative (Negative)
== END 2021-04-15 23:11 | disposition home or self-care (01) ==
LOC: DL.ED 21:03
DX: N94.6 Dysmenorrhea, unspecified (principal); Z72.0 Tobacco use
CPT/HCPCS: 36415; 80053; 80305-QW; 81001; 81025; 85025; 87086; 87491; 87591; 99284

== ENCOUNTER 2021-06-08 02:10 | Emergency (ER) | payer MEDICAID ==
[2021-06-08 02:25] VITALS: BP 139/97; PULSE 142
--- NOTE | 2021-06-08 02:34 | EDM.PDOC ---
ED HPI GENERAL MEDICAL PROBLEM - General Chief Complaint: Abdominal Pain Stated Complaint: LOWER BACK, LOWER STOMACH, PAIN Time Seen by Provider: 06/08/21 02:20 Source of Information: Reports: Patient History Limitations: Reports: No Limitations - History of Present Illness INITIAL COMMENTS - FREE TEXT/NARRATIVE: This 26 yo female patient reports to the ED with lower back and lower abdominal pain that has been intermittent over the past 2 days. The patient reports she started to feel nauseated just prior to arrival in the ED. The patient reports she has been taking Tylenol and ibuprofen for temporary symptom relief with her last dose at 2300 last night. The patient has been seen with similar symptoms in the past. Duration: Day(s):, Intermittent Location: Reports: Abdomen (lower), Back (lower) Quality: Reports: Ache, Dull Severity: Moderate Improves with: Reports: None Worsens with: Reports: None Context: Reports: Other Associated Symptoms: Reports: Fever/Chills, Nausea/Vomiting Lower Anterior Abdomen Pain Score (Numeric/FACES): 9 - Related Data Allergies Allergy/AdvReac Type Severity Reaction Status Date / Time No Known Allergies Allergy Verified 04/15/21 21:35 Home Meds: Home Meds Methimazole [Tapazole] 10 mg PO DAILY 02/23/21 [History] Past Medical History - Past Health History Medical/Surgical History: Denies Medical/Surgical History HEENT History: Reports: None Cardiovascular History: Reports: None Respiratory History: Reports: None Gastrointestinal History: Reports: None Genitourinary History: Reports: UTI, Recurrent Other Genitourinary History: left fallopian tube removed due to ecptopic 07/08 PEARL PELLER History: Reports: Ectopic , , Other (See Below) Other PEARL PELLER History: R) Ovarian cyst Musculoskeletal History: Reports: Fracture Neurological History: Reports: None Psychiatric History: Reports: Depression, Suicide Attempt, Suicidal Ideation Other Psychiatric History: self cutting Endocrine/Metabolic History: Reports: Other (See Below) Other Endocrine/Metabolic History: Pt states she has thyroid problem (over active) Hematologic History: Reports: None Oncologic (Cancer) History: Reports: None Dermatologic History: Reports: None - Infectious Disease History Infectious Disease History: Reports: None - Past Surgical History Head Surgeries/Procedures: Reports: None Female Surgical History: Reports: Other (See Below) Other Female Surgeries/Procedures: ectopic surgery Other Musculoskeletal Surgeries/Procedures:: L) arm fx. Social & Family History - Family History Family Medical History: No Pertinent Family History - Tobacco Use Tobacco Use Status *Q: Never Tobacco User - Caffeine Use Caffeine Use: Reports: None - Recreational Drug Use Recreational Drug Use: No - Living Situation & Occupation Living situation: Reports: with Family ED ROS GENERAL - Review of Systems Review Of Systems: Comprehensive ROS is negative, except as noted in HPI. ED EXAM, GI/ABD - Physical Exam Exam: See Below Exam Limited By: No Limitations General Appearance: Alert, WD/WN, Moderate Distress, Thin Eyes: Bilateral: Normal Appearance, EOMI Ears: Normal External Exam, Normal Canal, Hearing Grossly Normal, Normal TMs Nose: Normal Inspection, Normal Mucosa, No Blood Throat/Mouth: Normal Inspection, Normal Lips, Normal Teeth, Normal Gums, Normal Oropharynx, Normal Voice, No Airway Compromise Head: Atraumatic, Normocephalic Neck: Normal Inspection, Supple, Non-Tender, Full Range of Motion Respiratory/Chest: No Respiratory Distress, Lungs Clear, Normal Breath Sounds, No Accessory Muscle Use, Chest Non-Tender Cardiovascular: Normal Peripheral Pulses, Regular Rate, Rhythm, No Edema, No Gallop, No JVD, No Murmur, No Rub GI/Abdominal Exam: Tender (lower abdomen) (Female) Exam: Deferred Rectal (Female) Exam: Deferred Back Exam: Paraspinal Tenderness (lower back) Extremities: Normal Inspection, Normal Range of Motion, Non-Tender, Normal Capillary Refill, No Pedal Edema Neurological: Alert, Oriented, CN II-XII Intact, Normal Cognition, Normal Gait, Normal Reflexes, No Motor/Sensory Deficits Psychiatric: Normal Affect, Normal Mood Skin Exam: Warm, Dry, Intact, Normal Color, No Rash Lymphatic: No Adenopathy Course - Vital Signs Last Recorded V/S: Last Vital Signs Temp 99 F 06/08/21 03:20 Pulse 142 H 06/08/21 02:23 Resp 16 06/08/21 02:23 BP 139/97 H 06/08/21 02:23 Pulse Ox 98 06/08/21 02:23 - Orders/Labs/Meds Orders: Active Orders 24 hr Category Date Time Status CULTURE BLOOD [BC] Stat Lab 06/08/21 02:40 Received Labs: Laboratory Tests 12/20/21 12/20/21 12/20/21 Range/Units 02:20 02:20 02:20 WBC (5.0-10.0) 10^3/uL RBC (4.2-5.4) 10^6/uL Hgb (12.0-16.0) g/dL Hct (37.0-47.0) % MCV (80-100) fL MCH (27.0-34.0) pg MCHC (33.0-35.0) g/dL Plt Count (150-450) 10^3/uL Neut % (Auto) (42.2-75.2) % Lymph % (Auto) (20.5-50.1) % [place] % (Auto) (2-8) % Eos % (Auto) (1.0-3.0) % Baso % (Auto) (0.0-1.0) % Sodium (136-145) mmol/L Potassium (3.5-5.1) mmol/L Chloride (98-107) mmol/L Carbon Dioxide (21-32) mmol/L Anion Gap (7-13) mEq/L BUN (7-18) mg/dL Creatinine (0.55-1.02) mg/dL Est Cr Clr Drug Dosing mL/min Estimated GFR (MDRD) BUN/Creatinine Ratio (No establ ref range) Glucose (70-99) mg/dL Lactic Acid (0.4-2.0) mmol/L Calcium (8.5-10.1) mg/dL Total Bilirubin (0.2-1.0) mg/dL AST (15-37) U/L ALT (14-59) U/L Alkaline Phosphatase (46-116) U/L Total Protein (6.4-8.2) g/dL Albumin (3.4-5.0) g/dL Globulin Albumin/Globulin Ratio Urine Color Yellow (YELLOW) Urine Appearance Clear (CLEAR) Urine pH 6.0 (5.0-9.0) Ur Specific [place] 1.025 (1.005-1.030) Urine Protein Negative (NEGATIVE) Urine Glucose (UA) Negative (NEGATIVE) Urine Ketones Negative (NEGATIVE) Urine Occult Blood Trace-intact H (NEGATIVE) Urine Nitrite Negative (NEGATIVE) Urine Bilirubin Negative (NEGATIVE) Urine Urobilinogen 4.0 H (0.2-1.0) mg/dL Ur Leukocyte Esterase Negative (NEGATIVE) Urine RBC 10-20 H (0-5) /HPF Urine WBC 10-20 H (0-5/HPF) /HPF Ur Epithelial Cells Moderate H (NOT SEEN) /HPF Urine Bacteria Few (0-FEW/HPF) /HPF Urine Mucus Moderate H (NOT SEEN) /LPF Urine HCG, Qual Negative Urine Opiates Screen Negative (NEGATIVE) Ur Oxycodone Screen Negative (NEGATIVE) Urine Methadone Screen Negative (NEGATIVE) Ur Barbiturates Screen Negative (NEGATIVE) U Tricyclic Antidepress Negative (NEGATIVE) Ur Phencyclidine Scrn Negative (NEGATIVE) Ur Amphetamine Screen Negative (NEGATIVE) U Methamphetamines Scrn Negative (NEGATIVE) Urine MDMA Screen Negative (NEGATIVE) U Benzodiazepines Scrn Negative (NEGATIVE) Urine Cocaine Screen Negative (NEGATIVE) U Marijuana (THC) Screen Positive H (NEGATIVE) Influenza Type A RNA (NEGATIVE) Influenza Type B RNA (NEGATIVE) SARS-CoV-2 RNA (CAMILA) (NEGATIVE) 06/08/21 06/08/21 06/08/21 Range/Units 02:32 02:40 02:40 WBC 4.6 L (5.0-10.0) 10^3/uL RBC 4.61 (4.2-5.4) 10^6/uL Hgb 13.6 (12.0-16.0) g/dL Hct 38.9 (37.0-47.0) % MCV 84.4 (80-100) fL MCH 29.5 (27.0-34.0) pg MCHC 35.0 (33.0-35.0) g/dL Plt Count 179 (150-450) 10^3/uL Neut % (Auto) 64.3 (42.2-75.2) % Lymph % (Auto) 17.7 L (20.5-50.1) % [place] % (Auto) 15.6 H (2-8) % Eos % (Auto) 2.2 (1.0-3.0) % Baso % (Auto) 0.2 (0.0-1.0) % Sodium 139 (136-145) mmol/L Potassium 3.3 L (3.5-5.1) mmol/L Chloride 103 (98-107) mmol/L Carbon Dioxide 23 (21-32) mmol/L Anion Gap 16.3 H (7-13) mEq/L BUN 14 (7-18) mg/dL Creatinine 0.64 (0.55-1.02) mg/dL Est Cr Clr Drug Dosing 114.02 mL/min Estimated GFR (MDRD) > 60 BUN/Creatinine Ratio 21.9 (No establ ref range) Glucose 113 H (70-99) mg/dL Lactic Acid (0.4-2.0) mmol/L Calcium 8.8 (8.5-10.1) mg/dL Total Bilirubin 0.4 (0.2-1.0) mg/dL AST 26 (15-37) U/L ALT 36 (14-59) U/L Alkaline Phosphatase 141 H (46-116) U/L Total Protein 7.4 (6.4-8.2) g/dL Albumin 3.5 (3.4-5.0) g/dL Globulin 3.9 Albumin/Globulin Ratio 0.9 Urine Color (YELLOW) Urine Appearance (CLEAR) Urine pH (5.0-9.0) Ur Specific [place] (1.005-1.030) Urine Protein (NEGATIVE) Urine Glucose (UA) (NEGATIVE) Urine Ketones (NEGATIVE) Urine Occult Blood (NEGATIVE) Urine Nitrite (NEGATIVE) Urine Bilirubin (NEGATIVE) Urine Urobilinogen (0.2-1.0) mg/dL Ur Leukocyte Esterase (NEGATIVE) Urine RBC (0-5) /HPF Urine WBC (0-5/HPF) /HPF Ur Epithelial Cells (NOT SEEN) /HPF Urine Bacteria (0-FEW/HPF) /HPF Urine Mucus (NOT SEEN) /LPF Urine HCG, Qual Urine Opiates Screen (NEGATIVE) Ur Oxycodone Screen (NEGATIVE) Urine Methadone Screen (NEGATIVE) Ur Barbiturates Screen (NEGATIVE) U Tricyclic Antidepress (NEGATIVE) Ur Phencyclidine Scrn (NEGATIVE) Ur Amphetamine Screen (NEGATIVE) U Methamphetamines Scrn (NEGATIVE) Urine MDMA Screen (NEGATIVE) U Benzodiazepines Scrn (NEGATIVE) Urine Cocaine Screen (NEGATIVE) U Marijuana (THC) Screen (NEGATIVE) Influenza Type A RNA Negative (NEGATIVE) Influenza Type B RNA Negative (NEGATIVE) SARS-CoV-2 RNA (CAMILA) Negative (NEGATIVE) 06/08/21 Range/Units 02:40 WBC (5.0-10.0) 10^3/uL RBC (4.2-5.4) 10^6/uL Hgb (12.0-16.0) g/dL Hct (37.0-47.0) % MCV (80-100) fL MCH (27.0-34.0) pg MCHC (33.0-35.0) g/dL Plt Count (150-450) 10^3/uL Neut % (Auto) (42.2-75.2) % Lymph % (Auto) (20.5-50.1) % [place] % (Auto) (2-8) % Eos % (Auto) (1.0-3.0) % Baso % (Auto) (0.0-1.0) % Sodium (136-145) mmol/L Potassium (3.5-5.1) mmol/L Chloride (98-107) mmol/L Carbon Dioxide (21-32) mmol/L Anion Gap (7-13) mEq/L BUN (7-18) mg/dL Creatinine (0.55-1.02) mg/dL Est Cr Clr Drug Dosing mL/min Estimated GFR (MDRD) BUN/Creatinine Ratio (No establ ref range) Glucose (70-99) mg/dL Lactic Acid 0.8 (0.4-2.0) mmol/L Calcium (8.5-10.1) mg/dL Total Bilirubin (0.2-1.0) mg/dL AST (15-37) U/L ALT (14-59) U/L Alkaline Phosphatase (46-116) U/L Total Protein (6.4-8.2) g/dL Albumin (3.4-5.0) g/dL Globulin Albumin/Globulin Ratio Urine Color (YELLOW) Urine Appearance (CLEAR) Urine pH (5.0-9.0) Ur Specific [place] (1.005-1.030) Urine Protein (NEGATIVE) Urine Glucose (UA) (NEGATIVE) Urine Ketones (NEGATIVE) Urine Occult Blood (NEGATIVE) Urine Nitrite (NEGATIVE) Urine Bilirubin (NEGATIVE) Urine Urobilinogen (0.2-1.0) mg/dL Ur Leukocyte Esterase (NEGATIVE) Urine RBC (0-5) /HPF Urine WBC (0-5/HPF) /HPF Ur Epithelial Cells (NOT SEEN) /HPF Urine Bacteria (0-FEW/HPF) /HPF Urine Mucus (NOT SEEN) /LPF Urine HCG, Qual Urine Opiates Screen (NEGATIVE) Ur Oxycodone Screen (NEGATIVE) Urine Methadone Screen (NEGATIVE) Ur Barbiturates Screen (NEGATIVE) U Tricyclic Antidepress (NEGATIVE) Ur Phencyclidine Scrn (NEGATIVE) Ur Amphetamine Screen (NEGATIVE) U Methamphetamines Scrn (NEGATIVE) Urine MDMA Screen (NEGATIVE) U Benzodiazepines Scrn (NEGATIVE) Urine Cocaine Screen (NEGATIVE) U Marijuana (THC) Screen (NEGATIVE) Influenza Type A RNA (NEGATIVE) Influenza Type B RNA (NEGATIVE) SARS-CoV-2 RNA (CAMILA) (NEGATIVE) Meds: Medications Discontinued Medications Generic Name Dose Route Start Last Admin Trade Name Freq PRN Reason Stop Dose Admin Ibuprofen 600 mg 06/08/21 03:11 06/08/21 03:20 Ibuprofen 600 Mg Tab PO 06/08/21 03:12 600 mg ONETIME ONE Administration Departure - Departure Time of Disposition: 03:57 Disposition: Home, Self-Care 01 Condition: Fair Clinical Impression: Dysmenorrhea, unspecified - Discharge Information *PRESCRIPTION DRUG MONITORING PROGRAM REVIEWED*: Not Applicable *COPY OF PRESCRIPTION DRUG MONITORING REPORT IN PATIENT GLENIS: Not Applicable Instructions: Dysmenorrhea, [id number] Forms: ED Department Discharge Care Plan Goals: The patient was advised of the examination, lab and CT results during the visit. The patient was encouraged to continue to take Tylenol or ibuprofen as directed for temporary symptom relief. The patient was encouraged to follow-up with her primary care facility for continued evaluation and further treatment. If the patient has any additional symptoms or concerns, the patient should either return to the emergency department or visit her primary care facility. Sepsis Event Note (ED) - Evaluation Sepsis Screening Result: No Definite Risk - Focused Exam Vital Signs: Vital Signs Temp Temp Pulse Resp BP Pulse Ox 06/08/21 03:20 99 F 06/08/21 02:23 99.4 F 142 H 16 139/97 H 98 - My Orders Last 24 Hours: My Active Orders 06/08/21 02:40 CULTURE BLOOD [BC] Stat - Assessment/Plan Last 24 Hours: My Active Orders 06/08/21 02:40 CULTURE BLOOD [BC] Stat
[2021-06-08 03:01] LABS: ANION GAP 16.3 mEq/L (7-13); CHLORIDE,CL 103 mmol/L (98-107); SODIUM,NA 139 mmol/L (136-145)
[2021-06-08 03:02] LABS: AMPHETAMINES,URINE NEGATIVE (NEGATIVE); BARBITURATES,URINE NEGATIVE (NEGATIVE); BENZODIAZEPINE,URINE NEGATIVE (NEGATIVE); MDMA (ECSTASY), URINE NEGATIVE (NEGATIVE); METHADONE,URINE NEGATIVE (NEGATIVE); METHAMPHETAMINES,URINE NEGATIVE (NEGATIVE); OPIATES,URINE NEGATIVE (NEGATIVE); OXYCODONE,URINE NEGATIVE (NEGATIVE); PHENCYCLIDINE,URINE NEGATIVE (NEGATIVE); TCA,URINE NEGATIVE (NEGATIVE)
[2021-06-08] MEDS ORDERED: Ibuprofen 600 MG Tab PO ONE (03:11)
[2021-06-08 03:29] LABS: CORONAVIRUS COVID-19 NAA NEGATIVE (NEGATIVE)
--- NOTE | 2021-06-08 03:53 | CT ---
PROCEDURE INFORMATION: Exam: CT Abdomen And Pelvis Without Contrast Exam date and time: 06/08/2021 3:22 AM Age: 26 years old Clinical indication: Other: Low abd pain; Additional info: Lower abdominal and low back pain with hematuria TECHNIQUE: Imaging protocol: Computed tomography of the abdomen and pelvis without contrast. Radiation optimization: All CT scans at this facility use at least one of these dose optimization techniques: automated exposure control; mA and/or kV adjustment per patient size (includes targeted exams where dose is matched to clinical indication); or iterative reconstruction. COMPARISON: CT Abdomen Pelvis wo Cont 03/20/2020 2:23 AM FINDINGS: Lungs: The visualized portions of the lung bases are normal. Liver: Normal. No mass. Gallbladder and bile ducts: Normal. No calcified stones. No ductal dilation. Pancreas: Normal. No ductal dilation. Spleen: Normal. No splenomegaly. Adrenal glands: Normal. No mass. Kidneys and ureters: Nonobstructing bilateral small renal stones are noted. Stomach and bowel: Unremarkable. No obstruction. No mucosal thickening. Appendix: The appendix appears normal. Intraperitoneal space: Unremarkable. No free air. No significant fluid collection. Vasculature: Unremarkable. No abdominal aortic aneurysm. Lymph nodes: Unremarkable. No enlarged lymph nodes. Urinary bladder: Unremarkable as visualized. Reproductive: Unremarkable as visualized. Bones/joints: Bilateral pars defects are present at L5. No spondylolisthesis is currently present. Soft tissues: Unremarkable. IMPRESSION: Nonobstructing bilateral renal stones. 2. Bilateral pars defects at L5.
== END 2021-06-08 04:13 | disposition home or self-care (01) ==
LOC: DL.ED 02:10
DX: N94.6 Dysmenorrhea, unspecified (principal); Z20.822 Contact with and (suspected) exposure to COVID-19
CPT/HCPCS: 0240U; 36415; 74176; 80053; 80305; 81001; 81025; 83605; 85025; 87040; 99284; A9270

== ENCOUNTER 2021-06-29 21:42 | Emergency (ER) | payer MEDICAID, OTHER ==
[2021-06-29 22:04] VITALS: BP 115/82; PULSE 135
[2021-06-29] MEDS ORDERED: Propranolol 20 MG Tab PO ONE (23:13)
--- NOTE | 2021-06-29 23:14 | EDM.PDOC ---
ED HPI GENERAL MEDICAL PROBLEM - General Chief Complaint: ENT Problem Stated Complaint: THYRIOD FOR NECK HURTS, LIGHT HEADED Time Seen by Provider: 06/29/21 22:55 Source of Information: Reports: Patient, RN History Limitations: Reports: No Limitations - History of Present Illness INITIAL COMMENTS - FREE TEXT/NARRATIVE: ED with c/o neck pain and sore throat, felt lump on right side after waking from nap. Hx hypothryoidism. On medication but ran out 2-3 weeks ago and has not been back to pharmacy to fill. [place] fine until this efraín, [place] shakey. No fever or chills. Denies f/u with endocrinology but apointment next month with primary. 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: 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 , , Other (See Below) Other FIELD SERVICE TECHNICIAN History: R) Ovarian cyst Musculoskeletal History: Reports: Fracture Neurological History: Reports: None Psychiatric History: Reports: Depression, Suicide Attempt, Suicidal Ideation Other Psychiatric History: self cutting Endocrine/Metabolic History: Reports: Other (See Below) Other Endocrine/Metabolic History: Pt states she has thyroid problem (over active) Hematologic History: Reports: None Oncologic (Cancer) History: Reports: None Dermatologic History: Reports: None - Infectious Disease History Infectious Disease History: Reports: None - Past Surgical History Head Surgeries/Procedures: Reports: None Female Surgical History: Reports: Other (See Below) Other Female Surgeries/Procedures: ectopic surgery Other Musculoskeletal Surgeries/Procedures:: L) arm fx. Social & Family History - Family History Family Medical History: No Pertinent Family History - Tobacco Use Tobacco Use Status *Q: Current Every Day Tobacco User Years of Tobacco use: 5 Packs/Tins Daily: 0.3 - Caffeine Use Caffeine Use: Reports: None - Living Situation & Occupation Living situation: Reports: with Family ED ROS ENT - Review of Systems Review Of Systems: Comprehensive ROS is negative, except as noted in HPI. ED EXAM, ENT - Physical Exam Exam: See Below Exam Limited By: No Limitations General Appearance: Alert, No Apparent Distress Eye Exam: Bilateral Eye: EOMI, PERRL Ears: Normal External Exam, Hearing Grossly Normal, Normal TMs Nose: Normal Inspection, Normal Mucousa Mouth/Throat: Normal Inspection Head: Atraumatic, Normocephalic Neck: Full Range of Motion, Thyromegaly (pea nodule right tyhroid lobe with palpation) Respiratory/Chest: No Respiratory Distress, Lungs Clear, Normal Breath Sounds Cardiovascular: Normal Peripheral Pulses, Regular Rate, Rhythm, Tachycardia GI/Abdominal: Normal Bowel Sounds Back: Normal Inspection Extremities: Normal Inspection, Normal Range of Motion Neurological: Alert, Oriented, Normal Cognition Psychiatric: Normal Affect Skin: Warm, Dry, Intact, Normal Color Course - Vital Signs Last Recorded V/S: Last Vital Signs Temp 97.5 F 06/29/21 22:00 Pulse 135 H 06/29/21 22:00 Resp 20 06/29/21 22:00 BP 115/82 06/29/21 22:00 Pulse Ox 96 06/29/21 22:00 - Orders/Labs/Meds Orders: Active Orders 24 hr Category Date Time Status CULTURE STREP A CONFIRMATION [] Stat Lab 06/29/21 22:00 Results STREP SCRN A RAPID W CULT CONF [] Stat Lab 06/29/21 22:00 Results Labs: Laboratory Tests 06/29/21 06/29/21 Range/Units 22:05 22:05 WBC 11.6 H (5.0-10.0) 10^3/uL RBC 4.27 (4.2-5.4) 10^6/uL Hgb 12.4 (12.0-16.0) g/dL Hct 35.8 L (37.0-47.0) % MCV 83.8 (80-100) fL MCH 29.0 (27.0-34.0) pg MCHC 34.6 (33.0-35.0) g/dL Plt Count 244 (150-450) 10^3/uL Neut % (Auto) 55.0 (42.2-75.2) % Lymph % (Auto) 37.7 (20.5-50.1) % Maries % (Auto) 6.7 (2-8) % Eos % (Auto) 0.5 L (1.0-3.0) % Baso % (Auto) 0.1 (0.0-1.0) % TSH, Ultra Sensitive < 0.01 L (0.36-3.74) uIU/mL Meds: Medications Discontinued Medications Generic Name Dose Route Start Last Admin Trade Name Freq PRN Reason Stop Dose Admin Propranolol HCl 20 mg 06/29/21 23:13 06/29/21 23:23 Propranolol 20 Mg Tab PO 06/29/21 23:14 20 mg ONETIME ONE Administration Departure - Departure Time of Disposition: 23:14 Disposition: Home, Self-Care 01 Condition: Good Clinical Impression: Tachycardia Hypothyroidism Qualifiers: Hypothyroidism type: unspecified Qualified Code(s): E03.9 - Hypothyroidism, unspecified - Discharge Information *PRESCRIPTION DRUG MONITORING PROGRAM REVIEWED*: No *COPY OF PRESCRIPTION DRUG MONITORING REPORT IN PATIENT GLENIS: No Instructions: Hypothyroidism Forms: ED Department Discharge Additional Instructions: go to pharmacy and get medication methimazole prescription refilled in morning alternate tylenol and ibuprofen every 4 hours as needed for discomfort soft foods increase fluids clinic follow up this week Sepsis Event Note (ED) - Evaluation Sepsis Screening Result: No Definite Risk - Focused Exam Vital Signs: Vital Signs Temp Pulse Resp BP Pulse Ox 06/29/21 22:00 97.5 F 135 H 20 115/82 96 - My Orders Last 24 Hours: My Active Orders 06/29/21 22:00 CULTURE STREP A CONFIRMATION [RM] Stat STREP SCRN A RAPID W CULT CONF [] Stat - Assessment/Plan Last 24 Hours: My Active Orders 06/29/21 22:00 CULTURE STREP A CONFIRMATION [RM] Stat STREP SCRN A RAPID W CULT CONF [RM] Stat
== END 2021-06-29 23:28 | disposition home or self-care (01) ==
LOC: DL.ED 21:42
DX: R00.0 Tachycardia, unspecified (principal); E03.9 Hypothyroidism, unspecified; Z72.0 Tobacco use
CPT/HCPCS: 36415; 84443; 85025; 87081; 87430; 99284; A9270

== ENCOUNTER 2021-09-28 14:37 | Emergency (ER) | payer MEDICAID ==
[2021-09-28 16:01] LABS: CORONAVIRUS COVID-19 NAA NEGATIVE (NEGATIVE); RESPIRATORY SYNCYTIAL VIR NAA NEGATIVE (NEGATIVE)
[2021-09-28 16:43] VITALS: BP 138/87; PULSE 116
== END 2021-09-28 16:40 | disposition home or self-care (01) ==
LOC: DL.ED 14:37
DX: J06.9 Acute upper respiratory infection, unspecified (principal); Z20.822 Contact with and (suspected) exposure to COVID-19
CPT/HCPCS: 0241U; 99283; 99282

== ENCOUNTER 2021-11-02 05:47 | Emergency (ER) | payer MEDICAID ==
[2021-11-02 06:04] VITALS: BP 138/87; PULSE 118
[2021-11-02] MEDS: Sodium Chloride 0.9% 10 ML Syringe FLUSH PRN ×3 (06:28→08:42)
[2021-11-02] MEDS ORDERED: Sodium Chloride 0.9% 1,000 ML IV ONE (06:59)
[2021-11-02 07:00] LABS: ANION GAP 15.4 mEq/L (7-13); CHLORIDE,CL 105 mmol/L (98-107); SODIUM,NA 140 mmol/L (136-145)
[2021-11-02] MEDS ORDERED: Ketorolac 30 MG/ML SDV IVPUSH ONE (07:00)
[2021-11-02] MEDS ORDERED: cefTRIAXone 1 GM in Sodium Chloride 0.9% 50 ML IV ONE (08:25)
[2021-11-02 08:36] LABS: AMPHETAMINES,URINE NEGATIVE (NEGATIVE); BARBITURATES,URINE NEGATIVE (NEGATIVE); BENZODIAZEPINE,URINE NEGATIVE (NEGATIVE); MDMA (ECSTASY), URINE NEGATIVE (NEGATIVE); METHADONE,URINE NEGATIVE (NEGATIVE); METHAMPHETAMINES,URINE NEGATIVE (NEGATIVE); OPIATES,URINE NEGATIVE (NEGATIVE); OXYCODONE,URINE NEGATIVE (NEGATIVE); PHENCYCLIDINE,URINE NEGATIVE (NEGATIVE); TCA,URINE NEGATIVE (NEGATIVE)
== END 2021-11-02 09:20 | disposition home or self-care (01) ==
LOC: DL.ED 05:47
DX: N20.0 Calculus of kidney (principal); N39.0 Urinary tract infection, site not specified; Z72.0 Tobacco use
CPT/HCPCS: 36415; 74176; 80053; 80305-QW; 81001; 85025; 87086; 87088; 87186; 96365; 96375; 99284; 99284-25; J0696; J1885; J3490; J7030

== ENCOUNTER 2021-12-23 07:31 | Emergency (ER) | payer MEDICAID ==
[2021-12-23 08:01] VITALS: BP 124/75; PULSE 139
== END 2021-12-23 07:57 | disposition left against medical advice (07) ==
LOC: DL.ED 07:31
DX: Z53.21 Procedure and treatment not carried out due to patient leaving prior to being seen by health care provider (principal)

== ENCOUNTER 2024-06-30 02:33 | Emergency (ER) | payer MEDICAID ==
[2024-06-30] MEDS ORDERED: Sodium Chloride 0.9% 10 ML Syringe FLUSH PRN (02:53)
[2024-06-30 03:04] LABS: BASOPHILS PERCENT AUTO 0.1 % (0.0-1.0); EOSINOPHILS PERCENT AUTO 0.1 % (1.0-3.0); HEMATOCRIT 35.8 % (37.0-47.0); HEMOGLOBIN 11.8 g/dL (12.0-16.0); LYMPHOCYTES PERCENT AUTO 8.9 % (20.5-50.1); MEAN CORPUSCULAR HEMOGLOBIN 29.6 pg (27.0-34.0); MEAN CORPUSCULAR VOLUME 89.7 fL (80-100); MONOCYTES PERCENT AUTO 7.2 % (2-8); NEUTROPHILS PERCENT AUTO 83.7 % (42.2-75.2); PLATELET COUNT,PLT 223 10^3/uL (150-450); RED BLOOD CELL COUNT 3.99 10^6/uL (4.2-5.4); WHITE BLOOD CELL COUNT,WBC 14.8 10^3/uL (5.0-10.0)
[2024-06-30 03:07] LABS: APPEARANCE,URINE CLOUDY (CLEAR); BILIRUBIN,URINE NEGATIVE (NEGATIVE); COLOR,URINE YELLOW (YELLOW); GLUCOSE,URINE NEGATIVE (NEGATIVE); KETONES,URINE 15 (NEGATIVE); LEUKOCYTE ESTERASE,URINE MODERATE (NEGATIVE); NITRITE,URINE POSITIVE (NEGATIVE); OCCULT BLOOD,URINE SMALL (NEGATIVE); PROTEIN,URINE 30 (NEGATIVE)
[2024-06-30 03:12] LABS: AMPHETAMINES,URINE NEGATIVE (NEGATIVE); BARBITURATES,URINE NEGATIVE (NEGATIVE); BENZODIAZEPINE,URINE NEGATIVE (NEGATIVE); MDMA (ECSTASY), URINE NEGATIVE (NEGATIVE); METHADONE,URINE NEGATIVE (NEGATIVE); METHAMPHETAMINES,URINE NEGATIVE (NEGATIVE); OPIATES,URINE NEGATIVE (NEGATIVE); OXYCODONE,URINE NEGATIVE (NEGATIVE); PHENCYCLIDINE,URINE NEGATIVE (NEGATIVE); TCA,URINE NEGATIVE (NEGATIVE)
[2024-06-30 03:15] LABS: AMORPHOUS SEDIMENT,URINE MODERATE /HPF (NOT SEEN); BACTERIA,URINE MODERATE /HPF (0-FEW/HPF); EPITHELIAL CELLS,URINE FEW /HPF (NOT SEEN); MUCUS,URINE FEW /LPF (NOT SEEN); RBC,URINE 0-5 /HPF (0-5); WBC,URINE SEMI-PACKED /HPF (0-5/HPF)
[2024-06-30] MEDS: Ketorolac 30 MG/ML SDV IVPUSH ONE (03:16)
[2024-06-30] MEDS: cefTRIAXone 2 GM Vial IVPUSH ONE (03:17)
[2024-06-30] MEDS: Lactated Ringers 1,000 ML IV ONE (03:17)
[2024-06-30 03:27] LABS: HCG QUALITATIVE,SERUM NEGATIVE (NEGATIVE)
[2024-06-30] MEDS: Ondansetron 4 MG/2 ML SDV IVPUSH ONE (03:30)
[2024-06-30 03:31] LABS: ALANINE AMINOTRANSFERASE,ALT 63 U/L (14-59); ALBUMIN 3.3 g/dL (3.4-5.0); ALKALINE PHOSPHATASE 126 U/L (46-116); ANION GAP 15.5 mEq/L (7-13); ASPARTATE AMNIOTRANSFERASE,AST 44 U/L (15-37); BILIRUBIN TOTAL 0.7 mg/dL (0.2-1.0); BLOOD UREA NITROGEN,BUN 9 mg/dL (7-18); CALCIUM 8.4 mg/dL (8.5-10.1); CARBON DIOXIDE,CO2 25 mmol/L (21-32); CHLORIDE,CL 99 mmol/L (98-107); EST CRCL DRUG DOSING (CG) 82.25 mL/min; GLUCOSE RANDOM 153 mg/dL (70-99); MAGNESIUM 1.4 mg/dL (1.8-2.4); POTASSIUM,K 3.5 mmol/L (3.5-5.1); PROTEIN TOTAL,TP 7.4 g/dL (6.4-8.2); SODIUM,NA 136 mmol/L (136-145)
[2024-06-30 03:32] LABS: ESTIMATED GFR 88 mL/min (>=60)
[2024-06-30 04:42] LABS: LACTIC ACID 0.8 mmol/L (0.4-2.0)
[2024-06-30] MEDS: Lactulose Soln 10 GM/15 ML 30 ML UD Cup PO ONE (05:08)
[2024-06-30] MEDS: Take Home: Ondansetron 4 MG Tab.DIS, 5 Tab Pack PO ONE (05:11)
[2024-06-30] MEDS: Take Home: Ciprofloxacin HCl 500 MG, 6 Tab Pack PO ONE (05:11)
[2024-06-30 05:22] VITALS: BP 123/83; PULSE 87
== END 2024-06-30 05:27 | disposition home or self-care (01) ==
LOC: DL.ED 02:33
DX: N13.2 Hydronephrosis with renal and ureteral calculous obstruction (principal); K59.00 Constipation, unspecified; F17.290 Nicotine dependence, other tobacco product, uncomplicated
CPT/HCPCS: 36415; 74176; 80053; 80305; 81001; 83605; 83735; 84703; 85025; 87040; 87086; 87088; 87186; 96361; 96374; 96375; 99284; A9270; J0696; J1885; J2405; J7120; Q0162